=== PATIENT | female | born 1960 | race Caucasian/White ===

== ENCOUNTER 2016-08-05 12:06 | Day surgery (SDC) | payer OTHER ==
[2016-07-30 15:50] VITALS: BMI 15.5
--- NOTE | 2016-07-31 08:50 | HP ---
DATE OF ADMISSION: CHIEF COMPLAINT: Malnutrition, abdominal pain. HISTORY OF PRESENT ILLNESS: The patient is a 56-year-old female who was seen in the office today complaining of pain at the PEG tube site. The patient had a PEG tube present since 2009. It was never changed. Recently it has started to cause pain. She has a history of muscular dystrophy. She has very poor swallowing and lack of oral intake. She can only tolerate small volumes of food at that time. PAST MEDICAL HISTORY: Muscular dystrophy, multiple sclerosis, chronic headaches. PAST SURGICAL HISTORY: Trach, PEG, jaw, cataract. MEDICATIONS: See list. PHYSICAL EXAMINATION: HEENT is normocephalic. Sclerae anicteric. CHEST: No deformities. ABDOMEN: Soft, nondistended. PEG tube left upper quadrant with mild tenderness. EXTREMITIES: Without edema. IMPRESSION: A 56-year-old female with pain and malnutrition. PLAN: Will proceed with upper endoscopy with PEG tube replacement on 08/05. The risks of bleeding, infection, postoperative pain, scarring, numbness and bowel perforation were discussed. They understand and wish to proceed. Additionally respiratory failure as a result of her profound weakness was discussed with the usage of anesthesia. They understands and wishes to proceed.
[~2016-08-05 12:06] MED LIST: LACTATED RINGERS 1,000 ML IV SCH; LIDOCAINE 1% 20 ML VIAL (10MG/ML) FOR IV START INTRADERMA PRN
[2016-08-05 12:42] VITALS: TEMP 97.2
[2016-08-05] MEDS ORDERED: LIDOCAINE 1% INJ 10MG/ML (20 ML MDV) ONE (12:55)
[2016-08-05] MEDS ORDERED: PROPOFOL 10 MG/ML 20 ML VIAL IV ONE (12:55)
[2016-08-05] MEDS: fentaNYL (PF) 50 MCG/ML 2 ML AMP IV PRN ×2 (13:35→13:40)
[2016-08-05 13:47] VITALS: RESP 16
[2016-08-05 14:47] VITALS: BP 122/76; PULSE 51
--- NOTE | 2016-08-05 15:27 | P.PCN ---
Date of Procedure: 08/05/16 Procedure(s) Performed: Preoperative Dx: malnutrition Postoperative Dx: same Procedure: EGD with PEG tube replacement Anesthesia: Sedation Endoscopist: Dr. Stratton Specimens: none Endoscopic Procedure: The patient was on the endoscopy table in the left decubitus position. The Olympus gastroscope was inserted into the oropharynx and passed under direct visualization to the region of the mid body of the stomach. The PEG tube was noted at that location. The PEG tube was removed using traction. As expected the polyp broke away from the tubing. A new 20- Korean Ponsky type tube was used and easily advanced into the stomach. The bolster was tightened. The old hub of the catheter was removed using the snare technique without difficulty. The visualized stomach and proximal duodenum and esophagus appeared otherwise normal. The patient was then taken to the recovery room in stable condition per anesthesia guidelines. Recommendations: resume tube feeds. Advise PEG tube replacement in 1-2 years.
== END 2016-08-05 15:02 | disposition home or self-care (01) ==
LOC: ORWHC2ENDO 12:06
PROVIDERS: ATTEND Surgery
DX: Z43.1 Encounter for attention to gastrostomy (principal); E46 Unspecified protein-calorie malnutrition; G71.11 Myotonic muscular dystrophy; G35 Multiple sclerosis; K21.9 Gastro-esophageal reflux disease without esophagitis; R13.10 Dysphagia, unspecified; Z79.82 Long term (current) use of aspirin; Z79.891 Long term (current) use of opiate analgesic; Z79.899 Other long term (current) drug therapy
CPT/HCPCS: 43246; J2001; J3010; J2704; 99153

== ENCOUNTER 2017-05-14 15:30 | Inpatient (IN) | payer OTHER ==
[2017-05-14] MEDS ORDERED: SODIUM CHLORIDE 0.9% 500 ML IV ONE (16:01)
--- NOTE | 2017-05-14 16:05 | ED ---
General Adult HPI - General Chief complaint: Shortness of Breath Stated complaint: poss pneumonia Time Seen by Provider: 05/14/17 15:48 Source: patient, family, RN notes reviewed Mode of arrival: wheelchair Limitations: no limitations - History of Present Illness Initial comments: 56 yo female with history of muscular dystrophy presents with 4 days fever, up to 101, cough. Patient's unable to cough up significant sputum. She is also complaining of generalized weakness. Patient has a feeding tube secondary to difficulty swallowing. No abdominal pain. No nausea vomiting. Patient had an oxygen saturation of 74%, she is currently on oxygen. She was not previously on home O2. Patient was evaluated by her primary care physician. Started on azithromycin, her primary care physician did urge her to come to the emergency department yesterday, patient preferred to wait and is presenting today with worsening symptoms. Patient denies chest pain. - Related Data Home Medications Medication Instructions Recorded Confirmed Aspirin 81 mg PO DAILY 11/20/15 05/14/17 Calcium Carbonate/Vitamin D3 1 tab PO DAILY 11/20/15 05/14/17 [Os-Carlito 500+D3 Caplet] Esomeprazole Magnesium [NexIUM] 40 mg PO DAILY 11/20/15 05/14/17 Glycopyrrolate [Robinul] 1 mg PO BID 11/20/15 05/14/17 Hydrocodone/Acetaminophen [Causey 1 tab PO TID PRN 11/20/15 05/14/17 7.5-325] Melatonin 3 mg PO HS PRN 11/20/15 05/14/17 Spironolactone [Aldactone] 25 mg PO DAILY 11/20/15 05/14/17 Zolpidem [Ambien] 10 mg PO HS PRN 11/20/15 05/14/17 Artificial Tears-Hypromellose 1 drops BOTH EYES TID PRN 05/14/17 05/14/17 [Artificial Tear Drops] Azithromycin [Zithromax] See Taper PO DAILY 05/14/17 05/14/17 Carvedilol [Coreg] 12.5 mg PO DAILY 05/14/17 05/14/17 Erythromycin Ophth Oint [Romycin 1 applic BOTH EYES HS 05/14/17 05/14/17 Ophth Oint] Allergies Allergy/AdvReac Type Severity Reaction Status Date / Time No Known Allergies Allergy Verified 05/14/17 15:53 Review of Systems ROS Statement: Those systems with pertinent positive or pertinent negative responses have been documented in the HPI. ROS Other: All systems not noted in ROS Statement are negative. Past Medical History Past Medical History: GERD/Reflux Additional Past Medical History / Comment(s): myotonic muscular dystrophy, peg tube History of Any Multi-Drug Resistant Organisms: None Reported Additional Past Surgical History / Comment(s): peg tube, cataract surg. Past Anesthesia/Blood Transfusion Reactions: Postoperative Nausea & Vomiting ( PONV) Additional Past Anesthesia/Blood Transfusion Reaction / Comment(s): slow to wake up Past Psychological History: No Psychological Hx Reported Smoking Status: Never smoker Past Alcohol Use History: None Reported Past Drug Use History: None Reported General Exam Limitations: no limitations General appearance: alert, in distress Head exam: Present: atraumatic, normocephalic Eye exam: Present: normal appearance, PERRL ENT exam: Present: mucous membranes dry Neck exam: Absent: tenderness, meningismus Respiratory exam: Present: respiratory distress, rhonchi, accessory muscle use Cardiovascular Exam: Present: normal rhythm, tachycardia GI/Abdominal exam: Present: soft. Absent: distended, tenderness Extremities exam: Present: normal capillary refill. Absent: pedal edema, calf tenderness Neurological exam: Present: alert, oriented X3. Absent: motor sensory deficit Psychiatric exam: Present: normal affect, normal mood Skin exam: Present: warm, dry, intact, pallor. Absent: cyanosis, diaphoretic Course Vital Signs 05/14/17 05/14/17 05/14/17 15:31 16:13 17:02 Temperature 97.0 F L 98 F Pulse Rate 123 H 119 H Pulse Rate [ 118 H Poultry Service Technician ] Respiratory 20 20 Rate Blood Pressure 102/64 133/86 O2 Sat by Pulse 91 L 94 L Oximetry 05/14/17 05/14/17 05/14/17 17:03 17:07 17:16 Temperature Pulse Rate 118 H 119 H 122 H Pulse Rate [ Poultry Service Technician ] Respiratory 18 Rate Blood Pressure 112/68 O2 Sat by Pulse 93 L Oximetry 05/14/17 18:17 Temperature 97.6 F Pulse Rate 122 H Pulse Rate [ Poultry Service Technician ] Respiratory 18 Rate Blood Pressure 106/66 O2 Sat by Pulse 93 L Oximetry EKG Findings - EKG Comments: EKG Findings:: EKG shows wide complex rhythm, left bundle branch block, ventricular rate 120 QRS duration 122, QTC 469, no old EKG for comparison. Repeat EKG at 1738, shows wide QRS rhythm, ventricular rate 120, QRS duration 120, QTC 477, no atrial activity identified Medical Decision Making - Medical Decision Making 56-year-old female presents with reported history of dyspnea, severe cough, and fever. Patient has history of muscular dystrophy and severe debility. She was started on antibiotic, azithromycin, several days ago. She has failed to improve. On examination, patient has dry mucous membranes, tachycardia, bilateral rhonchi, worse on the right upper lobe. No Rales. No peripheral edema. EKG shows wide QRS rhythm, rate of 120, there is a left bundle branch block. Patient has no chest pain. No previous EKG for comparison. Patient does admit to missing a dose of her Coreg. EKG findings are discussed with cardiology, Dr. Burroughs, given the concern for pneumonia, this be treated as sinus tachycardia. Laboratory studies reveal a elevated white blood cell count 13.9, stable hemoglobin 11.9, mild hyponatremia with sodium 1:30, AST and LTR elevated, troponin is negative, BMP is elevated at 5850. Chest x-ray shows small bilateral pleural effusions, mild cardiomegaly, patient does have history of heart failure, EF of 30% according to the patient, this is secondary to her muscular dystrophy. Given the elevated AST and ALTs from ultrasound is obtained , this is negative for signs of acute cholecystitis, common bile duct is normal. Patient has no right upper quadrant pain. Urinalysis is negative for infection. History and exam most consistent with pneumonia although chest x- ray does not show focal infiltrate. Patient is started on IV antibiotics including azithromycin for atypical pneumonia. Patient will receive gentle IV rehydration. Diagnosis: Pneumonia with hypoxia - Lab Data Result diagrams: 05/14/17 16:00 05/14/17 16:00 Lab Results 05/14/17 05/14/17 05/14/17 Range/Units 16:00 16:00 16:00 WBC 13.9 H (3.8-10.6) k/uL RBC 3.84 (3.80-5.40) m/uL Hgb 11.9 (11.4-16.0) gm/dL Hct 36.5 (34.0-46.0) % MCV 95.0 (80.0-100.0) fL MCH 31.0 (25.0-35.0) pg MCHC 32.6 (31.0-37.0) g/dL RDW 13.5 (11.5-15.5) % Plt Count 387 (150-450) k/uL Neutrophils % 85 % Lymphocytes % 7 % Monocytes % 5 % Eosinophils % 2 % Basophils % 0 % Neutrophils # 11.9 H (1.3-7.7) k/uL Lymphocytes # 0.9 L (1.0-4.8) k/uL Monocytes # 0.6 (0-1.0) k/uL Eosinophils # 0.2 (0-0.7) k/uL Basophils # 0.0 (0-0.2) k/uL PT (9.0-12.0) sec INR (<1.2) APTT (22.0-30.0) sec Sodium 130 L (137-145) mmol/L Potassium 4.8 (3.5-5.1) mmol/L Chloride 94 L (98-107) mmol/L Carbon Dioxide 27 (22-30) mmol/L Anion Gap 9 mmol/L BUN 23 H (7-17) mg/dL Creatinine 0.48 L (0.52-1.04) mg/dL Est GFR (MDRD) Af Amer >60 (>60 ml/min/1.73 sqM) Est GFR (MDRD) Non-Af >60 (>60 ml/min/1.73 sqM) Glucose 115 H (74-99) mg/dL Plasma Lactic Acid Rashad 1.1 (0.7-2.0) mmol/L Calcium 9.5 (8.4-10.2) mg/dL Magnesium (1.6-2.3) mg/dL Total Bilirubin 0.3 (0.2-1.3) mg/dL AST 116 H (14-36) U/L ALT 176 H (9-52) U/L Alkaline Phosphatase 282 H (38-126) U/L Troponin I (0.000-0.034) ng/mL NT-Pro-B Natriuret Pep pg/mL Total Protein 6.6 (6.3-8.2) g/dL Albumin 3.4 L (3.5-5.0) g/dL Urine Color Urine Appearance (Clear) Urine pH (5.0-8.0) Ur Specific Fowler (1.001-1.035) Urine Protein (Negative) Urine Glucose (UA) (Negative) Urine Ketones (Negative) Urine Blood (Negative) Urine Nitrite (Negative) Urine Bilirubin (Negative) Urine Urobilinogen (<2.0) mg/dL Ur Leukocyte Esterase (Negative) 05/14/17 05/14/17 05/14/17 Range/Units 16:00 16:00 16:00 WBC (3.8-10.6) k/uL RBC (3.80-5.40) m/uL Hgb (11.4-16.0) gm/dL Hct (34.0-46.0) % MCV (80.0-100.0) fL MCH (25.0-35.0) pg MCHC (31.0-37.0) g/dL RDW (11.5-15.5) % Plt Count (150-450) k/uL Neutrophils % % Lymphocytes % % Monocytes % % Eosinophils % % Basophils % % Neutrophils # (1.3-7.7) k/uL Lymphocytes # (1.0-4.8) k/uL Monocytes # (0-1.0) k/uL Eosinophils # (0-0.7) k/uL Basophils # (0-0.2) k/uL PT 9.7 (9.0-12.0) sec INR 0.9 (<1.2) APTT 23.8 (22.0-30.0) sec Sodium (137-145) mmol/L Potassium (3.5-5.1) mmol/L Chloride (98-107) mmol/L Carbon Dioxide (22-30) mmol/L Anion Gap mmol/L BUN (7-17) mg/dL Creatinine (0.52-1.04) mg/dL Est GFR (MDRD) Af Amer (>60 ml/min/1.73 sqM) Est GFR (MDRD) Non-Af (>60 ml/min/1.73 sqM) Glucose (74-99) mg/dL Plasma Lactic Acid Rashad (0.7-2.0) mmol/L Calcium (8.4-10.2) mg/dL Magnesium (1.6-2.3) mg/dL Total Bilirubin (0.2-1.3) mg/dL AST (14-36) U/L ALT (9-52) U/L Alkaline Phosphatase (38-126) U/L Troponin I <0.012 (0.000-0.034) ng/mL NT-Pro-B Natriuret Pep 5950 pg/mL Total Protein (6.3-8.2) g/dL Albumin (3.5-5.0) g/dL Urine Color Urine Appearance (Clear) Urine pH (5.0-8.0) Ur Specific Fowler (1.001-1.035) Urine Protein (Negative) Urine Glucose (UA) (Negative) Urine Ketones (Negative) Urine Blood (Negative) Urine Nitrite (Negative) Urine Bilirubin (Negative) Urine Urobilinogen (<2.0) mg/dL Ur Leukocyte Esterase (Negative) 05/14/17 05/14/17 Range/Units 16:00 18:15 WBC (3.8-10.6) k/uL RBC (3.80-5.40) m/uL Hgb (11.4-16.0) gm/dL Hct (34.0-46.0) % MCV (80.0-100.0) fL MCH (25.0-35.0) pg MCHC (31.0-37.0) g/dL RDW (11.5-15.5) % Plt Count (150-450) k/uL Neutrophils % % Lymphocytes % % Monocytes % % Eosinophils % % Basophils % % Neutrophils # (1.3-7.7) k/uL Lymphocytes # (1.0-4.8) k/uL Monocytes # (0-1.0) k/uL Eosinophils # (0-0.7) k/uL Basophils # (0-0.2) k/uL PT (9.0-12.0) sec INR (<1.2) APTT (22.0-30.0) sec Sodium (137-145) mmol/L Potassium (3.5-5.1) mmol/L Chloride (98-107) mmol/L Carbon Dioxide (22-30) mmol/L Anion Gap mmol/L BUN (7-17) mg/dL Creatinine (0.52-1.04) mg/dL Est GFR (MDRD) Af Amer (>60 ml/min/1.73 sqM) Est GFR (MDRD) Non-Af (>60 ml/min/1.73 sqM) Glucose (74-99) mg/dL Plasma Lactic Acid Rashad (0.7-2.0) mmol/L Calcium (8.4-10.2) mg/dL Magnesium 2.1 (1.6-2.3) mg/dL Total Bilirubin (0.2-1.3) mg/dL AST (14-36) U/L ALT (9-52) U/L Alkaline Phosphatase (38-126) U/L Troponin I (0.000-0.034) ng/mL NT-Pro-B Natriuret Pep pg/mL Total Protein (6.3-8.2) g/dL Albumin (3.5-5.0) g/dL Urine Color Light Yellow Urine Appearance Clear (Clear) Urine pH 6.5 (5.0-8.0) Ur Specific Fowler 1.004 (1.001-1.035) Urine Protein Negative (Negative) Urine Glucose (UA) Negative (Negative) Urine Ketones Negative (Negative) Urine Blood Negative (Negative) Urine Nitrite Negative (Negative) Urine Bilirubin Negative (Negative) Urine Urobilinogen <2.0 (<2.0) mg/dL Ur Leukocyte Esterase Negative (Negative) Critical Care Time Critical Care Time: Yes Total Critical Care Time: 35 Disposition Clinical Impression: Community acquired pneumonia Disposition: ADMITTED IP TO THIS [facility] Condition: Serious Referrals: Leoadn Crespo MD [Primary Care Provider] - 1-2 days Decision to Admit Reason: Admit from EC Decision Date: 05/14/17 Decision Time: 18:35
[2017-05-14] MEDS: SODIUM CHLORIDE 0.9% 1,000 ML IV SCH (16:16)
[2017-05-14 16:21] LABS: Basophils % (A) 0 %; CH 30.6; CHCM 32.4; Eosinophils # (A) 0.2 k/uL (0-0.7); Eosinophils % (A) 2 %; HCT 36.5 % (34.0-46.0); HDW 2.27; HGB 11.9 gm/dL (11.4-16.0); Luc # (Auto) 0.25; Luc % (Auto) 2; Lymphocytes # (A) 0.9 k/uL (1.0-4.8); Lymphocytes % (A) 7 %; MCHC 32.6 g/dL (31.0-37.0); Mean Platelet Volume 7.5; Monocytes # (A) 0.6 k/uL (0-1.0); Monocytes % (A) 5 %; Neutrophils # (A) 11.9 k/uL (1.3-7.7); Neutrophils % (A) 85 %; RBC 3.84 m/uL (3.80-5.40); RDW 13.5 % (11.5-15.5); WBC 13.9 k/uL (3.8-10.6); WBC (Perox) 14.39
[2017-05-14 16:31] LABS: ALT 176 U/L (9-52); AST 116 U/L (14-36); Alkaline Phosphatase 282 U/L (38-126); Anion Gap 9 mmol/L; Blood Urea Nitrogen 23 mg/dL (7-17); Calcium 9.5 mg/dL (8.4-10.2); Carbon Dioxide 27 mmol/L (22-30); Chloride 94 mmol/L (98-107); Glucose 115 mg/dL (74-99); Non-African American GFR(MDRD) >60 (>60 ml/min/1.73 sqM); Potassium 4.8 mmol/L (3.5-5.1); Sodium 130 mmol/L (137-145); Total Bilirubin 0.3 mg/dL (0.2-1.3); Total Protein 6.6 g/dL (6.3-8.2)
[2017-05-14 16:32] LABS: INR 0.9 (<1.2); Partial Thromboplastin Time 23.8 sec (22.0-30.0); Prothrombin Time 9.7 sec (9.0-12.0)
[2017-05-14] MEDS ORDERED: IPRATROPIUM-ALBUTEROL 3 ML NEB INHALATION STA (16:38)
--- NOTE | 2017-05-14 16:45 | XR ---
EXAMINATION TYPE: XR chest 2V DATE OF EXAM: 05/14/2017 COMPARISON: Chest x-ray May 21, 2014 HISTORY: Cough for 3 days. TECHNIQUE: Frontal and lateral views of the chest are obtained. FINDINGS: There is new mild cardiomegaly with small bilateral pleural effusions. There is moderate apical pleural/parenchymal scarring bilaterally redemonstrated. The osseous structures are intact. IMPRESSION: Consider CHF exacerbation as there is new mild cardiomegaly with small bilateral pleural effusions present.
[2017-05-14] MEDS ORDERED: AZITHROMYCIN 500 MG in SODIUM CHLORIDE 0.9% 250 ML IVPB STA (16:50)
[2017-05-14] MEDS ORDERED: VANCOMYCIN IV PER PHARMACY 1 EACH MISC MISCELLANE PRN (16:50)
[2017-05-14] MEDS ORDERED: CARVEDILOL 12.5 MG TAB PO STA (17:36)
--- NOTE | 2017-05-14 18:14 | US ---
EXAMINATION TYPE: US gallbladder DATE OF EXAM: 05/14/2017 COMPARISON: NONE CLINICAL HISTORY: Pain. EXAM MEASUREMENTS: Liver Length: 13.6 cm Gallbladder Wall: 0.4 cm CBD: 0.2 cm Right Kidney: 9.3 x 3.4 x 3.7 cm Frail patient unable to move, severe uncontrollable coughing during entire exam. VERY limited study. Pancreas: portions visualized wnl Liver: unable to fully evaluate due to patient severe coughing, inability to hold her breath Gallbladder: chololithiasis Evidence for sonographic Carmona's sign: no CBD: wnl Right Kidney: wnl Suboptimal study per technologist as detailed above. IMPRESSION: Shadowing mobile Gallstones without secondary ultrasound evidence for acute cholecystit is.
[2017-05-14 18:20] LABS: Appearance,Urine Clear (Clear); Bilirubin,Urine Negative (Negative); Glucose,Urine (UA) Negative (Negative); Ketones,Urine Negative (Negative); Leukocyte Esterase,Urine Negative (Negative); Nitrite,Urine Negative (Negative); PH, Urine 6.5 (5.0-8.0); Protein,Urine Negative (Negative); Specific Gravity,Urine 1.004 (1.001-1.035); UA Billing (MACRO vs. MICRO) CHEM; Urobilinogen,Urine <2.0 mg/dL (<2.0)
[2017-05-14] MEDS ORDERED: NALOXONE 0.4 MG/ML 1 ML VIAL IV PRN (18:25)
[2017-05-14] MEDS ORDERED: ACETAMINOPHEN TAB 325 MG TAB PO PRN (18:25)
[2017-05-14] MEDS ORDERED: ARTIFICIAL TEARS-HYPROMELLOSE DROPS 15 ML BTL BOTH EYES PRN (18:28)
[2017-05-14] MEDS: HYDROcodone/APAP 7.5-325MG 1 EACH TAB PO PRN (19:49)
[2017-05-14] MEDS ORDERED: VANCOMYCIN 1,000 MG in SODIUM CHLORIDE 0.9% 250 ML IVPB ONE (20:00)
[2017-05-14] MEDS: ZOLPIDEM 10 MG TAB PO PRN (22:52)
[2017-05-14] MEDS: MELATONIN 3 MG TABLET PO PRN (22:53)
[2017-05-14] MEDS: CEFEPIME 2 GM in SODIUM CHLORIDE 0.9% 50 ML IVPB SCH (23:04)
[2017-05-15 00:43] LABS: Glucose,Whole Blood 131 mg/dL (75-99)
[2017-05-15] MEDS: SODIUM CHLORIDE 0.9% 1,000 ML IV SCH ×3 (04:29→23:25)
[2017-05-15] MEDS: VANCOMYCIN 750 MG in SODIUM CHLORIDE 0.9% 250 ML IVPB SCH ×2 (04:35→12:38)
[2017-05-15 06:19] LABS: Glucose,Whole Blood 124 mg/dL (75-99)
[2017-05-15] MEDS: CARVEDILOL 12.5 MG TAB PO SCH (06:26)
[2017-05-15 06:46] LABS: Basophils % (A) 0 %; CH 30.4; CHCM 31.4; Eosinophils # (A) 0.2 k/uL (0-0.7); Eosinophils % (A) 2 %; HCT 30.2 % (34.0-46.0); HDW 2.25; Luc % (Auto) 2; Lymphocytes # (A) 1.1 k/uL (1.0-4.8); Lymphocytes % (A) 12 %; MCH 30.5 pg (25.0-35.0); MCHC 31.4 g/dL (31.0-37.0); MCV 97.1 fL (80.0-100.0); Mean Platelet Volume 7.5; Monocytes # (A) 0.5 k/uL (0-1.0); Monocytes % (A) 6 %; Neutrophils # (A) 7.1 k/uL (1.3-7.7); Neutrophils % (A) 78 %; RBC 3.11 m/uL (3.80-5.40); RDW 13.5 % (11.5-15.5); WBC 9.1 k/uL (3.8-10.6); WBC (Perox) 9.99
[2017-05-15 06:51] LABS: HGB 9.5 gm/dL (11.4-16.0)
[2017-05-15 07:12] LABS: ALT 110 U/L (9-52); AST 51 U/L (14-36); Alkaline Phosphatase 184 U/L (38-126); Anion Gap 9 mmol/L; Blood Urea Nitrogen 17 mg/dL (7-17); Calcium 8.6 mg/dL (8.4-10.2); Carbon Dioxide 25 mmol/L (22-30); Chloride 103 mmol/L (98-107); Glucose 116 mg/dL (74-99); Non-African American GFR(MDRD) >60 (>60 ml/min/1.73 sqM); Potassium 4.5 mmol/L (3.5-5.1); Sodium 137 mmol/L (137-145); Total Bilirubin <0.1 mg/dL (0.2-1.3); Total Protein 5.2 g/dL (6.3-8.2)
[2017-05-15] MEDS: SPIRONOLACTONE 25 MG TAB PO SCH (09:05)
[2017-05-15] MEDS: HYDROcodone/APAP 7.5-325MG 1 EACH TAB PO PRN ×3 (09:06→19:49)
[2017-05-15] MEDS: ASPIRIN 81 MG PO SCH (09:06)
[2017-05-15] MEDS: CEFEPIME 2 GM in SODIUM CHLORIDE 0.9% 50 ML IVPB SCH (09:06)
[2017-05-15 11:55] LABS: Glucose,Whole Blood 121 mg/dL (75-99)
[2017-05-15] MEDS: FUROSEMIDE 10 MG/ML 4 ML VIAL IV SCH ×2 (12:25→19:50)
[2017-05-15] MEDS: LOSARTAN 25 MG TAB PO SCH (12:25)
--- NOTE | 2017-05-15 14:52 | P.HPIM ---
History of Present Illness 56 yo female with history of muscular dystrophy presents with 4 days fever, up to 101, cough. Patient's unable to cough up significant sputum. She is also complaining of generalized weakness. Patient has a feeding tube secondary to difficulty swallowing. No abdominal pain. No nausea vomiting. Patient had an oxygen saturation of 74%, she is currently on oxygen. She was not previously on home O2. Patient was evaluated by her primary care physician. Started on azithromycin, her primary care physician did urge her to come to the emergency department yesterday, patient preferred to wait and is presenting today with worsening symptoms. Patient denies chest pain. Patient was comparing of shortness of breath denied any orthopnea PND, upon further evaluation patient is found to have pulmonary edema on the chest x-ray, elevated JVD and elevated the BNP patient's previous ejection fraction is around 30-35% patient was started on Lasix. Patient denied any fever since last night chest x-ray is not name impressive for pneumonia, causing her fever are good and continue antibiotics. Patient does have gallstones but does not appear to have cholecystitis clinically or radiographically and does have mildly elevated liver enzymes, probably due to hepatic congestion Review of Systems REVIEW OF SYSTEMS: CONSTITUTIONAL: As mentioned in HPI HEENT: No recent visual problems or hearing problems. Denied any sore throat. CARDIOVASCULAR: No chest pain, orthopnea, PND, no palpitations, no syncope. PULMONARY: No shortness of breath, no hemoptysis. GASTROINTESTINAL: No diarrhea, no nausea, no vomiting, no abdominal pain. Normoactive bowel sounds. NEUROLOGICAL: No headaches, no weakness, no numbness. HEMATOLOGICAL: Denies any bleeding or petechiae. GENITOURINARY: Denies any burning micturition, frequency, or urgency. MUSCULOSKELETAL/RHEUMATOLOGICAL: Denies any joint pain, swelling, or any muscle pain. ENDOCRINE: Denies any polyuria or polydipsia. The rest of the 14-point review of systems is negative. Past Medical History Past Medical History: Heart Failure, GERD/Reflux Additional Past Medical History / Comment(s): myotonic muscular dystrophy, peg tube History of Any Multi-Drug Resistant Organisms: None Reported Additional Past Surgical History / Comment(s): peg tube, cataract surg./ EYE LIFT R/T THEM NOT CLOSING PROPERLY. Past Anesthesia/Blood Transfusion Reactions: Postoperative Nausea & Vomiting ( PONV) Additional Past Anesthesia/Blood Transfusion Reaction / Comment(s): slow to wake up Past Psychological History: No Psychological Hx Reported Smoking Status: Never smoker Past Alcohol Use History: None Reported Past Drug Use History: None Reported - Past Family History Father Family Medical History: Congestive Heart Failure (CHF) Medications and Allergies Home Medications Medication Instructions Recorded Confirmed Type Aspirin 81 mg PO DAILY 11/20/15 05/14/17 History Calcium Carbonate/Vitamin D3 1 tab PO DAILY 11/20/15 05/14/17 History [Os-Carlito 500+D3 Caplet] Esomeprazole Magnesium [NexIUM] 40 mg PO DAILY 11/20/15 05/14/17 History Glycopyrrolate [Robinul] 1 mg PO BID 11/20/15 05/14/17 History Hydrocodone/Acetaminophen [Marvin 1 tab PO TID PRN 11/20/15 05/14/17 History 7.5-325] Melatonin 3 mg PO HS PRN 11/20/15 05/14/17 History Spironolactone [Aldactone] 25 mg PO DAILY 11/20/15 05/14/17 History Zolpidem [Ambien] 10 mg PO HS PRN 11/20/15 05/14/17 History Artificial Tears-Hypromellose 1 drops BOTH EYES TID PRN 05/14/17 05/14/17 History [Artificial Tear Drops] Azithromycin [Zithromax] See Taper PO DAILY 05/14/17 05/14/17 History Carvedilol [Coreg] 12.5 mg PO DAILY 05/14/17 05/14/17 History Erythromycin Ophth Oint [Romycin 1 applic BOTH EYES HS 05/14/17 05/14/17 History Ophth Oint] Allergies Allergy/AdvReac Type Severity Reaction Status Date / Time No Known Allergies Allergy Verified 05/14/17 15:53 Physical Exam Vitals: Vital Signs Temp Pulse Pulse Resp BP BP Pulse Ox 05/15/17 04:00 97.4 F L 107 H 19 101/57 91 L 05/15/17 00:00 97.2 F L 109 H 18 112/61 92 L 05/14/17 20:00 97.0 F L 106 H 19 100/59 91 L 05/14/17 18:49 96.7 F L 112 H 19 110/59 90 L 05/14/17 18:17 97.6 F 122 H 18 106/66 93 L 05/14/17 17:16 122 H 18 112/68 93 L 05/14/17 17:07 119 H 05/14/17 17:03 118 H 05/14/17 17:02 118 H 05/14/17 16:13 98 F 119 H 20 133/86 94 L 05/14/17 15:31 97.0 F L 123 H 20 102/64 91 L Intake and Output 05/14/17 05/15/17 05/15/17 22:59 06:59 14:59 Intake Total 120 1100 Output Total 250 2200 Balance -130 1100 -2200 Intake: IV 1100 Azithromycin 500 mg In 250 Sodium Chloride 0.9% 250 ml @ 125 mls/hr IVPB DAILY@1700 [facility] Rx#: [id number] Cefepime 2 gm In Sodium 100 Chloride 0.9% 50 ml @ 100 mls/hr IVPB Q8HR [facility] Rx# :[id number] Sodium Chloride 0.9% 1, 500 000 ml @ 100 mls/hr IV . Q10H [facility] Rx#:[id number] Vancomycin 1,000 mg In 250 Sodium Chloride 0.9% 250 ml @ 125 mls/hr IVPB ONCE ONE Rx#:[id number] Tube Feeding 120 Output: Urine 250 2200 Other: Voiding Method Bedside Commode Bedside Commode # Voids 1 2 1 Weight 42.5 kg 42.5 kg PHYSICAL EXAMINATION: GENERAL: The patient is alert and oriented x3, not in any acute distress. Thin built female HEENT: Pupils are round and equally reacting to light. EOMI. No scleral icterus. No conjunctival pallor. Normocephalic, atraumatic. No pharyngeal erythema. No thyromegaly. CARDIOVASCULAR: S1 and S2 present. No murmurs, rubs, or gallops. She does have elevated JVD PULMONARY: Decreased air entry bilateral basilar crackles. ABDOMEN: Soft, nontender, nondistended, normoactive bowel sounds. No palpable organomegaly. MUSCULOSKELETAL: No joint swelling or deformity. EXTREMITIES: No cyanosis, clubbing, or pedal edema. NEUROLOGICAL: Gross neurological examination did not reveal any new focal deficits. Does have chronic weakness from muscular dystrophy SKIN: No rashes. Results CBC & Chem 7: 05/15/17 06:14 05/15/17 06:14 Labs: Abnormal Lab Results - Last 24 Hours (Table) 05/14/17 05/14/17 05/15/17 Range/Units 16:00 16:00 00:41 WBC 13.9 H (3.8-10.6) k/uL RBC (3.80-5.40) m/uL Hgb (11.4-16.0) gm/dL Hct (34.0-46.0) % Neutrophils # 11.9 H (1.3-7.7) k/uL Lymphocytes # 0.9 L (1.0-4.8) k/uL Sodium 130 L (137-145) mmol/L Chloride 94 L (98-107) mmol/L BUN 23 H (7-17) mg/dL Creatinine 0.48 L (0.52-1.04) mg/dL Glucose 115 H (74-99) mg/dL POC Glucose (mg/dL) 131 H (75-99) mg/dL Total Bilirubin (0.2-1.3) mg/dL AST 116 H (14-36) U/L ALT 176 H (9-52) U/L Alkaline Phosphatase 282 H (38-126) U/L Total Protein (6.3-8.2) g/dL Albumin 3.4 L (3.5-5.0) g/dL 05/15/17 05/15/17 05/15/17 Range/Units 06:14 06:14 06:16 WBC (3.8-10.6) k/uL RBC 3.11 L (3.80-5.40) m/uL Hgb 9.5 L D (11.4-16.0) gm/dL Hct 30.2 L (34.0-46.0) % Neutrophils # (1.3-7.7) k/uL Lymphocytes # (1.0-4.8) k/uL Sodium (137-145) mmol/L Chloride (98-107) mmol/L BUN (7-17) mg/dL Creatinine 0.45 L (0.52-1.04) mg/dL Glucose 116 H (74-99) mg/dL POC Glucose (mg/dL) 124 H (75-99) mg/dL Total Bilirubin <0.1 L (0.2-1.3) mg/dL AST 51 H (14-36) U/L ALT 110 H (9-52) U/L Alkaline Phosphatase 184 H (38-126) U/L Total Protein 5.2 L (6.3-8.2) g/dL Albumin 2.5 L (3.5-5.0) g/dL 05/15/17 Range/Units 11:53 WBC (3.8-10.6) k/uL RBC (3.80-5.40) m/uL Hgb (11.4-16.0) gm/dL Hct (34.0-46.0) % Neutrophils # (1.3-7.7) k/uL Lymphocytes # (1.0-4.8) k/uL Sodium (137-145) mmol/L Chloride (98-107) mmol/L BUN (7-17) mg/dL Creatinine (0.52-1.04) mg/dL Glucose (74-99) mg/dL POC Glucose (mg/dL) 121 H (75-99) mg/dL Total Bilirubin (0.2-1.3) mg/dL AST (14-36) U/L ALT (9-52) U/L Alkaline Phosphatase (38-126) U/L Total Protein (6.3-8.2) g/dL Albumin (3.5-5.0) g/dL Microbiology - Last 24 Hours (Table) 05/14/17 18:15 Urine Culture - Preliminary Urine,Voided Thrombosis Risk Factor Assmnt - Choose All That Apply Each Factor Represents 1 point: Age 41-60 years, Medical pt on bed rest, Serious lung disease incl. pneumonia (< 1month) Thrombosis Risk Factor Assessment Total Risk Factor Score: 3 Thrombosis Risk Factor Assessment Level: Moderate Risk Assessment and Plan Plan: #1 shortness of breath, hypoxemia: Secondary to possible COPD exacerbation patient was started on IV Lasix and all lactone and Cozaar which will be continued. #2 fever, chest x-ray is not impressive or pneumonia but today quite pneumonia cannot be ruled out because of which patient will be continued on ceftriaxone and azithromycin and cefepime and vancomycin will be discontinued. #3 muscular dystrophy #4 congestive heart failure chronic systolic dysfunction with acute exacerbation #5 gastroesophageal reflux disease #6 hypertension
[2017-05-15 17:08] LABS: Glucose,Whole Blood 116 mg/dL (75-99)
[2017-05-15] MEDS: AZITHROMYCIN 500 MG in SODIUM CHLORIDE 0.9% 250 ML IVPB SCH (17:45)
--- NOTE | 2017-05-15 17:57 | CONS ---
CONSULTATION This is a 56-year-old lady who carries a diagnosis of muscular dystrophy and concomitant LV dysfunction with probable non ischemic cardiomyopathy. She came into the hospital emergency room, brought in by her family. Four days of fever with chills and also coughing and generalized weakness, lack of energy and she has a feed tube secondary to difficulty in swallowing. I was asked to see her mainly because of congestive heart failure type picture with elevated BNP. She denies any chest discomfort, but indicates to me that shortness of breath is better and she is actually feeling somewhat better at this time. Denies any chest pain or palpitations. PAST MEDICAL HISTORY: 1. Muscular dystrophy with a nonischemic cardiomyopathy. 2. Gastroesophageal reflux disease. 3. History of a PEG tube, status post cataract surgery. MEDICATIONS: At home include: 1. Aldactone 25 mg daily. 2. Artificial Tears. 3. Carvedilol 12.5 mg 1 b.i.d. 4. [place] for pain. 5. Aspirin 81 mg daily. 6. Nexium. ALLERGIES: None. REVIEW OF SYSTEMS: Review of systems unremarkable other than above-mentioned facts. PHYSICAL EXAMINATION: Blood pressure is 110/70, pulse rate is about 98 per minute. HEENT: Unremarkable. Fundus was not examined by me. Neck is supple. There is JVD of 1 cm. No carotid bruit. Heart exam reveals S1, S2 with a short systolic murmur. Lungs reveal diminished air entry. Abdomen is soft, nontender. Lower extremities reveal diminished pulses. No edema. Central nervous system is normal. EKG that was in the chart revealed a sinus tachycardia with an IVCD LBBB type, but rhythm strips suggest a sinus mechanism at this time. LABORATORY DATA: Reveals elevated BNP of about 5950. Troponin levels are normal. The patient's lactic acid was normal. Renal function appears to be fairly stable. IMPRESSION: 1. Exacerbation of mild congestive heart failure. 2. Probable upper respiratory infection. 3. History of muscular dystrophy with probable nonischemic cardiomyopathy with mild congestive heart failure of systolic type. RECOMMENDATIONS: I am recommending that we will place her on IV Lasix and add a small dose of losartan, check an EKG in the morning along with an echocardiogram and continue antibiotics. Based on the testing results and clinical course, we will make further recommendations. Thank you very much for the consult. MMODL / IJN: [id number] /
[2017-05-15] MEDS: ZOLPIDEM 10 MG TAB PO PRN (23:24)
[2017-05-15] MEDS: MELATONIN 3 MG TABLET PO PRN (23:24)
[2017-05-16 00:41] LABS: Glucose,Whole Blood 89 mg/dL (75-99)
[2017-05-16 06:00] LABS: Glucose,Whole Blood 129 mg/dL (75-99)
[2017-05-16] MEDS: CARVEDILOL 12.5 MG TAB PO SCH ×2 (06:47→08:48)
[2017-05-16 07:08] LABS: ALT 110 U/L (9-52); AST 45 U/L (14-36); Alkaline Phosphatase 202 U/L (38-126); Anion Gap 11 mmol/L; Blood Urea Nitrogen 22 mg/dL (7-17); Calcium 9.6 mg/dL (8.4-10.2); Carbon Dioxide 32 mmol/L (22-30); Chloride 97 mmol/L (98-107); Glucose 112 mg/dL (74-99); Non-African American GFR(MDRD) >60 (>60 ml/min/1.73 sqM); Sodium 140 mmol/L (137-145); Total Bilirubin <0.1 mg/dL (0.2-1.3); Total Protein 6.3 g/dL (6.3-8.2)
[2017-05-16] MEDS: INSULIN LISPRO (humaLOG) 300 UNIT/3 ML VIAL SQ SCH ×3 (07:40→21:21)
--- NOTE | 2017-05-16 08:09 | P.PN ---
Subjective Progress Note Date: 05/16/17 Principal diagnosis: Cough and shortness of breath. This is a 56-year-old white cardiology does show probable mild nonischemic cardiac myopathy systolic type. The patient is improved but still having significant cough. Low-grade fever spikes are also noted. No diarrhea. Objective - Vital Signs Vital signs: Vital Signs Temp 97.9 F 05/16/17 04:00 Pulse 74 05/16/17 04:00 Resp 18 05/16/17 04:00 BP 84/42 05/16/17 04:00 Pulse Ox 96 05/16/17 00:00 Intake & Output 05/15/17 05/16/17 05/16/17 18:59 06:59 18:59 Intake Total 250 Output Total 4300 1000 Balance -4300 -750 Intake: IV 250 Azithromycin 500 mg In 250 Sodium Chloride 0.9% 250 ml @ 125 mls/hr IVPB DAILY@1700 [facility] Rx#: [id number] Output: Urine 4300 1000 Other: Voiding Method Bedside Commode Bedside Commode # Voids 1 - Constitutional General appearance: Present: thin - EENT Eyes: Absent: abnormal pupil - Respiratory Respiratory: bilateral: dullness - Cardiovascular Rhythm: regular Heart sounds: normal: S1, S2 - Gastrointestinal General gastrointestinal: Present: soft. Absent: tenderness - Neurologic Neurologic: Present: CNII-XII intact - Musculoskeletal Musculoskeletal: Present: generalized weakness - Labs CBC & Chem 7: 05/15/17 06:14 05/16/17 05:54 Labs: Abnormal Lab Results - Last 24 Hours (Table) 05/15/17 05/15/17 05/16/17 Range/Units 11:53 17:05 05:54 Chloride 97 L (98-107) mmol/L Carbon Dioxide 32 H (22-30) mmol/L BUN 22 H (7-17) mg/dL Glucose 112 H (74-99) mg/dL POC Glucose (mg/dL) 121 H 116 H (75-99) mg/dL Total Bilirubin <0.1 L (0.2-1.3) mg/dL AST 45 H (14-36) U/L ALT 110 H (9-52) U/L Alkaline Phosphatase 202 H (38-126) U/L Albumin 3.2 L (3.5-5.0) g/dL 10/30/17 Range/Units 05:59 Chloride (98-107) mmol/L Carbon Dioxide (22-30) mmol/L BUN (7-17) mg/dL Glucose (74-99) mg/dL POC Glucose (mg/dL) 129 H (75-99) mg/dL Total Bilirubin (0.2-1.3) mg/dL AST (14-36) U/L ALT (9-52) U/L Alkaline Phosphatase (38-126) U/L Albumin (3.5-5.0) g/dL Microbiology - Last 24 Hours (Table) 05/14/17 18:15 Urine Culture - Final Urine,Voided 05/14/17 16:00 Blood Culture - Preliminary Blood No Growth after 24 hours Assessment and Plan (1) Nonischemic cardiomyopathy Current Visit: Yes Status: Acute Code(s): I42.8 - OTHER CARDIOMYOPATHIES SNOMED Code(s): 16769908 (2) Systolic congestive heart failure Current Visit: Yes Status: Acute Code(s): I50.20 - UNSPECIFIED SYSTOLIC ( CONGESTIVE) HEART FAILURE SNOMED Code(s): 064128464 (3) Community acquired pneumonia Current Visit: Yes Status: Acute Code(s): J18.9 - PNEUMONIA, UNSPECIFIED ORGANISM SNOMED Code(s): 515423974 Plan: Continue current regimen of treatment with IV Lasix with Cozaar and antibiotic treatment. Check CBC and CMP in a.m. Appreciate cardiology input. Echocardiogram is pending. Time with Patient: Less than 30
[2017-05-16] MEDS: LOSARTAN 25 MG TAB PO SCH (08:48)
[2017-05-16] MEDS: ASPIRIN 81 MG PO SCH (08:48)
[2017-05-16] MEDS: SPIRONOLACTONE 25 MG TAB PO SCH (08:48)
[2017-05-16] MEDS: HYDROcodone/APAP 7.5-325MG 1 EACH TAB PO PRN ×3 (08:48→19:52)
[2017-05-16] MEDS: FUROSEMIDE 10 MG/ML 4 ML VIAL IV SCH (08:50)
[2017-05-16] MEDS: SODIUM CHLORIDE 0.9% 1,000 ML IV SCH ×3 (09:30→22:31)
--- NOTE | 2017-05-16 10:47 | ECHOF ---
Referral Reason:pain/shortness of breath/post procedure MEASUREMENTS -------- HEIGHT: 157.5 cm WEIGHT: 42.2 kg BP: 84/42 RVIDd: 2.0 cm (< 3.3) IVSd: 0.7 cm (0.6 - 1.1) LVIDd: 4.1 cm (3.9 - 5.3) LVPWd: 0.9 cm (0.6 - 1.1) IVSs: 1.1 cm LVIDs: 2.8 cm LVPWs: 1.2 cm LA Diam: 1.9 cm (2.7 - 3.8) LAESV Index (A-L): 22.40 ml/m Ao Diam: 2.7 cm (2.0 - 3.7) AV Cusp: 2.0 cm (1.5 - 2.6) MV EXCURSION: 15.987 mm (> 18.000) MV EF SLOPE: 105 mm/s (70 - 150) EPSS: 0.6 cm MV E Richie: 0.84 m/s MV DecT: 296 ms MV A Richie: 0.92 m/s MV E/A Ratio: 0.91 RAP: 5.00 mmHg RVSP: 28.15 mmHg FINDINGS -------- Sinus rhythm. This was a technically good study. The left ventricular size is normal. Left ventricular wall thickness is normal. Overall left vent ricular systolic function is normal with, an EF between 55 - 60 %. The right ventricle is normal in size. Normal LA size by volume 22+/-6 ml/m2. The right atrium is normal in size. The aortic valve is trileaflet and appears structurally normal. The mitral valve is normal. There is trace to mild mitral regurgitation. Mild tricuspid regurgitation present. Right ventricular systolic pressure is normal at < 35 mmHg. Trace/mild (physiologic) pulmonic regurgitation. The aortic root size is normal. Normal inferior vena cava with normal inspiratory collapse consistent with estimated right atrial pre ssure of 5 mmHg. There is no pericardial effusion. CONCLUSIONS -------- 1. Sinus rhythm. 2. This was a technically good study. 3. Left ventricular wall thickness is normal. 4. Overall left ventricular systolic function is normal with, an EF between 55 - 60 %. 5. The right ventricle is normal in size. 6. Normal LA size by volume 22+/-6 ml/m2. 7. The aortic valve is trileaflet and appears structurally normal. 8. There is trace to mild mitral regurgitation. 9. Mild tricuspid regurgitation present. 10. Right ventricular systolic pressure is normal at < 35 mmHg. 11. Trace/mild (physiologic) pulmonic regurgitation. 12. The aortic root size is normal. 13. Normal inferior vena cava with normal inspiratory collapse consistent with estimated right atrial pressure of 5 mmHg. 14. There is no pericardial effusion. CRISIS THERAPIST: Ileana Garg RDCS
[2017-05-16] MEDS ORDERED: VANCOMYCIN TROUGH DUE 1 EACH MISC MISCELLANE ONE (11:00)
[2017-05-16 11:37] LABS: Glucose,Whole Blood 114 mg/dL (75-99)
--- NOTE | 2017-05-16 15:46 | P.PN ---
Subjective Progress Note Date: 05/16/17 Principal diagnosis: generalized weakness this is a 56-year-old female with history of muscular dystrophy who presented to the hospital with complaints of generalized weakness with associated difficulty in swallowing. She was also found to be quite hypoxic on admission here. She apparently had been running fevers at home up to 101.0. She also had some complaints of shortness of breath which was why cardiology consultation was requested yesterday. Patient did have an echocardiogram with Doppler study performed which revealed an ejection fraction of 55-60%.diuresed well through the night last night, putting out 5000ml, potassium today 4.0, BUN 22, creatinine 0.6. AST 45, ALT 110, alk phos 202.blood pressure today in the high 80s to low 90s systolic. We will decrease the Coreg to 3.125 mg twice a day, we will also discontinue the IV Lasix and start the patient on oral diuretics from tomorrow. Decrease dose of Cozaar. Objective - Vital Signs Vital signs: Vital Signs Temp 97.1 F L 05/16/17 12:00 Pulse 70 05/16/17 12:00 Resp 18 05/16/17 12:00 BP 106/75 05/16/17 12:00 Pulse Ox 93 L 05/16/17 12:00 Intake & Output 05/15/17 05/16/17 05/16/17 18:59 06:59 18:59 Intake Total 250 0 Output Total 4300 1000 1600 Balance -4300 -750 -1600 Weight 42.5 kg Intake: IV 250 Azithromycin 500 mg In 250 Sodium Chloride 0.9% 250 ml @ 125 mls/hr IVPB DAILY@1700 [facility] Rx#: [id number] Oral 0 Output: Urine 4300 1000 1600 Other: Voiding Method Bedside Commode Bedside Commode Bedside Commode # Voids 1 # Bowel Movements 1 - Exam PHYSICAL EXAMINATION: HEENT: [Head is atraumatic, normocephalic. Pupils equal, round. Neck is supple. There is no elevated jugular venous pressure.] HEART EXAMINATION: [Heart S1, S2 normal. No murmur or gallop heard.] CHEST EXAMINATION:[ Lungs reveal by basilar crackles. ABDOMEN: [ Soft, nontender. Bowel sounds are heard. No organomegaly noted]. EXTREMITIES:[ 2+ peripheral pulses with no evidence of peripheral edema and no calf tenderness noted]. NEUROLOGIC [patient is awake, alert and oriented -3.] . - Labs CBC & Chem 7: 05/15/17 06:14 05/16/17 05:54 Labs: Abnormal Lab Results - Last 24 Hours (Table) 05/15/17 05/16/17 05/16/17 Range/Units 17:05 05:54 05:59 Chloride 97 L (98-107) mmol/L Carbon Dioxide 32 H (22-30) mmol/L BUN 22 H (7-17) mg/dL Glucose 112 H (74-99) mg/dL POC Glucose (mg/dL) 116 H 129 H (75-99) mg/dL Total Bilirubin <0.1 L (0.2-1.3) mg/dL AST 45 H (14-36) U/L ALT 110 H (9-52) U/L Alkaline Phosphatase 202 H (38-126) U/L Albumin 3.2 L (3.5-5.0) g/dL 05/16/17 Range/Units 11:34 Chloride (98-107) mmol/L Carbon Dioxide (22-30) mmol/L BUN (7-17) mg/dL Glucose (74-99) mg/dL POC Glucose (mg/dL) 114 H (75-99) mg/dL Total Bilirubin (0.2-1.3) mg/dL AST (14-36) U/L ALT (9-52) U/L Alkaline Phosphatase (38-126) U/L Albumin (3.5-5.0) g/dL Microbiology - Last 24 Hours (Table) 05/14/17 18:15 Urine Culture - Final Urine,Voided 05/14/17 16:00 Blood Culture - Preliminary Blood No Growth after 24 hours Assessment and Plan Plan: Assessment and plan #1 shortness of breath with evidence of hypoxemia, likely secondary to COPD exacerbation as well as mild congestive heart failure, diastolic acute on chronic. #2 fever, possible pneumonia,possible upper respiratory infection.patient on antibiotics. #3 muscular dystrophy #4 hypotension Plan We will discontinue the IV Lasix. Possibly resume oral Lasix tomorrow morning. Decrease Coreg to 3.125 mg, decrease Cozaar to 12.5 mg daily. Continue to monitor blood pressure. DNP note has been reviewed, I agree with a documented findings and plan of care. Patient was seen and examined.
[2017-05-16] MEDS: AZITHROMYCIN 500 MG in SODIUM CHLORIDE 0.9% 250 ML IVPB SCH (16:59)
[2017-05-16] MEDS: CARVEDILOL 3.125 MG TAB PO SCH (16:59)
[2017-05-16 19:48] LABS: Glucose,Whole Blood 82 mg/dL (75-99)
[2017-05-16] MEDS: MELATONIN 3 MG TABLET PO PRN (22:31)
[2017-05-16] MEDS: ZOLPIDEM 10 MG TAB PO PRN (22:32)
[2017-05-17 00:15] LABS: Glucose,Whole Blood 108 mg/dL (75-99)
[2017-05-17] MEDS: INSULIN LISPRO (humaLOG) 300 UNIT/3 ML VIAL SQ SCH ×4 (02:01→23:15)
[2017-05-17 05:55] LABS: Glucose,Whole Blood 125 mg/dL (75-99)
[2017-05-17] MEDS: CARVEDILOL 3.125 MG TAB PO SCH ×2 (06:26→18:18)
[2017-05-17] MEDS: SODIUM CHLORIDE 0.9% 1,000 ML IV SCH ×3 (06:26→18:18)
[2017-05-17] MEDS: HYDROcodone/APAP 7.5-325MG 1 EACH TAB PO PRN ×3 (06:27→18:17)
[2017-05-17 06:32] LABS: CH 31.2; CHCM 32.2; HCT 33.4 % (34.0-46.0); HDW 2.24; HGB 10.8 gm/dL (11.4-16.0); MCH 31.5 pg (25.0-35.0); MCHC 32.4 g/dL (31.0-37.0); MCV 97.3 fL (80.0-100.0); Mean Platelet Volume 6.6; RBC 3.43 m/uL (3.80-5.40); RDW 12.6 % (11.5-15.5)
[2017-05-17 06:50] LABS: ALT 78 U/L (9-52); AST 30 U/L (14-36); Alkaline Phosphatase 175 U/L (38-126); Anion Gap 9 mmol/L; Blood Urea Nitrogen 23 mg/dL (7-17); Calcium 9.6 mg/dL (8.4-10.2); Carbon Dioxide 35 mmol/L (22-30); Chloride 96 mmol/L (98-107); Glucose 120 mg/dL (74-99); Non-African American GFR(MDRD) >60 (>60 ml/min/1.73 sqM); Potassium 4.2 mmol/L (3.5-5.1); Sodium 140 mmol/L (137-145); Total Bilirubin <0.1 mg/dL (0.2-1.3)
--- NOTE | 2017-05-17 09:14 | CDI ---
In responding to this query, please exercise your independent professional judgment. The [facility] Coding Staff and Clinical Documentation Specialists appreciate your assistance in clarifying documentation, maintaining compliance with coding guidelines, accurately documenting patients condition and capturing severity of illness. The fact that a question is asked does not imply that any particular answer is desired or expected. Communication forms are a method of clarifying documentation and are not made part of the Legal Health Record. Thank you in advance for your clarification. Last Revision, September 2016 Mya Martino [address] [place] [address] Documentation Clarification Form Date: 05/18/2017 8:15:00 AM From: Sharmila Ellsworth CCS, CCDS Admit Date: 05/14/2017 6:25:00 PM Patient Name: Natasha Irby Visit Number: [id number] Discharge Date: Dr. Leodan Crespo: Please clarify the type of CHF you are treating the patient for: CHF is documented in the History & Physical and Cardiology consult as *Acute on Chronic Systolic CHF. Per the 05/16 cardiology progress note: *Acute on Chronic Diastolic CHF. History/Risk Factors: Myotonic Muscular Dystophy, Dysphagia w/PEG tube, Hypertension. Clinical Indicators: VS/Pulse OX: 91 ra, 94 2Lnc. BNP: 5950 Echocardiogram Results (05/16): Left ventricular systolic function normal w/EF 55-60%. Chest X Ray: Consider CHF exacerbation, new mild cardiomegaly. Treatment: IV fluid bolus in ER, Albuterol INH, IV Azithromycin, IV Vancomycin, IV Maxipime In your professional opinion, can you please clarify the acuity and type of CHF if known? Systolic Heart Failure: o Acute o Chronic o Acute on Chronic Diastolic Heart Failure: o Acute o Chronic o Acute on Chronic Systolic & Diastolic Heart Failure: o Acute o Chronic o Acute on Chronic Unable to determine Other, please specify Please document in your progress notes and discharge summary in order to capture severity of illness and risk of mortality. Include clinical findings that support your diagnosis. FYI: Press F11 to launch patient chart. LYNDA
[2017-05-17] MEDS: ASPIRIN 81 MG PO SCH (10:01)
[2017-05-17] MEDS: AZITHROMYCIN 500 MG TAB PO SCH (10:01)
[2017-05-17] MEDS: LOSARTAN 25 MG TAB PO SCH (10:01)
[2017-05-17] MEDS: SPIRONOLACTONE 25 MG TAB PO SCH (10:02)
[2017-05-17 11:55] LABS: Glucose,Whole Blood 104 mg/dL (75-99)
--- NOTE | 2017-05-17 14:26 | P.PN ---
Subjective Progress Note Date: 05/17/17 Principal diagnosis: Cough and shortness of breath. This is a 56-year-old white cardiology does show probable mild nonischemic cardiac myopathy systolic type. The patient is improved but still having significant cough. Low-grade fever spikes are also noted. No diarrhea. Echocardiogram also does not report any type of significant heart Objective - Vital Signs Vital signs: Vital Signs Temp 97.0 F L 05/17/17 08:00 Pulse 71 05/17/17 12:00 Resp 16 05/17/17 12:00 BP 121/64 05/17/17 12:00 Pulse Ox 95 05/17/17 12:00 Intake & Output 05/16/17 05/17/17 05/17/17 18:59 06:59 18:59 Intake Total 0 450 350 Output Total 1600 225 150 Balance -1600 225 200 Weight 42.5 kg 40 kg Intake: Oral 0 0 Tube Feeding 450 350 Output: Urine 1600 225 150 Other: Voiding Method Bedside Commode Bedside Commode Bedside Commode # Voids 0 1 1 # Bowel Movements 1 - Constitutional General appearance: Present: thin - EENT Eyes: Absent: abnormal pupil - Respiratory Respiratory: bilateral: rhonchi - Cardiovascular Rhythm: regular Heart sounds: normal: S1, S2 - Gastrointestinal General gastrointestinal: Present: soft. Absent: tenderness - Integumentary Integumentary: Absent: cyanotic - Neurologic Neurologic: Present: CNII-XII intact, focal deficits - Musculoskeletal Musculoskeletal: Present: generalized weakness - Labs CBC & Chem 7: 05/17/17 05:51 05/17/17 05:51 Labs: Abnormal Lab Results - Last 24 Hours (Table) 05/17/17 05/17/17 05/17/17 Range/Units 00:11 05:51 05:51 WBC 11.0 H (3.8-10.6) k/uL RBC 3.43 L (3.80-5.40) m/uL Hgb 10.8 L (11.4-16.0) gm/dL Hct 33.4 L (34.0-46.0) % Plt Count 567 H (150-450) k/uL Chloride 96 L (98-107) mmol/L Carbon Dioxide 35 H (22-30) mmol/L BUN 23 H (7-17) mg/dL Glucose 120 H (74-99) mg/dL POC Glucose (mg/dL) 108 H (75-99) mg/dL Total Bilirubin <0.1 L (0.2-1.3) mg/dL ALT 78 H (9-52) U/L Alkaline Phosphatase 175 H (38-126) U/L Total Protein 6.0 L (6.3-8.2) g/dL Albumin 3.0 L (3.5-5.0) g/dL 05/17/17 05/17/17 Range/Units 05:53 11:50 WBC (3.8-10.6) k/uL RBC (3.80-5.40) m/uL Hgb (11.4-16.0) gm/dL Hct (34.0-46.0) % Plt Count (150-450) k/uL Chloride (98-107) mmol/L Carbon Dioxide (22-30) mmol/L BUN (7-17) mg/dL Glucose (74-99) mg/dL POC Glucose (mg/dL) 125 H 104 H (75-99) mg/dL Total Bilirubin (0.2-1.3) mg/dL ALT (9-52) U/L Alkaline Phosphatase (38-126) U/L Total Protein (6.3-8.2) g/dL Albumin (3.5-5.0) g/dL Microbiology - Last 24 Hours (Table) 05/14/17 16:00 Blood Culture - Preliminary Blood No Growth after 48 hours Assessment and Plan (1) Nonischemic cardiomyopathy Current Visit: Yes Status: Acute Code(s): I42.8 - OTHER CARDIOMYOPATHIES SNOMED Code(s): 72707200 (2) Systolic congestive heart failure Current Visit: Yes Status: Acute Code(s): I50.20 - UNSPECIFIED SYSTOLIC ( CONGESTIVE) HEART FAILURE SNOMED Code(s): 297496030 (3) Community acquired pneumonia Current Visit: Yes Status: Acute Code(s): J18.9 - PNEUMONIA, UNSPECIFIED ORGANISM SNOMED Code(s): 185121673 Plan: Continue current regimen of treatment. Check CBC and CMP in a.m. Appreciate cardiology input.
--- NOTE | 2017-05-17 15:14 | P.PN ---
Subjective Progress Note Date: 05/17/17 Principal diagnosis: generalized weakness this is a 56-year-old female with history of muscular dystrophy who presented to the hospital with complaints of generalized weakness with associated difficulty in swallowing. She was also found to be quite hypoxic on admission here. She apparently had been running fevers at home up to 101.0. She also had some complaints of shortness of breath which was why cardiology consultation was requested. Patient did have an echocardiogram with Doppler study performed which revealed an ejection fraction of 55-60%.diuresed well through the night last night, weight is down 2 kg today. WBC 11, hemoglobin 10.8, potassium 4.2, BUN 23, creatinine 0.5. We will resume Lasix orally 20 mg daily. B/P today 120/60. Objective - Vital Signs Vital signs: Vital Signs Temp 97.0 F L 05/17/17 08:00 Pulse 71 05/17/17 12:00 Resp 16 05/17/17 12:00 BP 121/64 05/17/17 12:00 Pulse Ox 95 05/17/17 12:00 Intake & Output 05/16/17 05/17/17 05/17/17 18:59 06:59 18:59 Intake Total 0 450 350 Output Total 1600 225 150 Balance -1600 225 200 Weight 42.5 kg 40 kg Intake: Oral 0 0 Tube Feeding 450 350 Output: Urine 1600 225 150 Other: Voiding Method Bedside Commode Bedside Commode Bedside Commode # Voids 0 1 1 # Bowel Movements 1 - Exam PHYSICAL EXAMINATION: HEENT: [Head is atraumatic, normocephalic. Pupils equal, round. Neck is supple. There is no elevated jugular venous pressure.] HEART EXAMINATION: [Heart S1, S2 normal. No murmur or gallop heard.] CHEST EXAMINATION:[ Lungs reveal by basilar crackles. ABDOMEN: [ Soft, nontender. Bowel sounds are heard. No organomegaly noted]. EXTREMITIES:[ 2+ peripheral pulses with no evidence of peripheral edema and no calf tenderness noted]. NEUROLOGIC [patient is awake, alert and oriented -3.] . - Labs CBC & Chem 7: 05/17/17 05:51 05/17/17 05:51 Labs: Abnormal Lab Results - Last 24 Hours (Table) 05/17/17 05/17/17 05/17/17 Range/Units 00:11 05:51 05:51 WBC 11.0 H (3.8-10.6) k/uL RBC 3.43 L (3.80-5.40) m/uL Hgb 10.8 L (11.4-16.0) gm/dL Hct 33.4 L (34.0-46.0) % Plt Count 567 H (150-450) k/uL Chloride 96 L (98-107) mmol/L Carbon Dioxide 35 H (22-30) mmol/L BUN 23 H (7-17) mg/dL Glucose 120 H (74-99) mg/dL POC Glucose (mg/dL) 108 H (75-99) mg/dL Total Bilirubin <0.1 L (0.2-1.3) mg/dL ALT 78 H (9-52) U/L Alkaline Phosphatase 175 H (38-126) U/L Total Protein 6.0 L (6.3-8.2) g/dL Albumin 3.0 L (3.5-5.0) g/dL 05/17/17 05/17/17 Range/Units 05:53 11:50 WBC (3.8-10.6) k/uL RBC (3.80-5.40) m/uL Hgb (11.4-16.0) gm/dL Hct (34.0-46.0) % Plt Count (150-450) k/uL Chloride (98-107) mmol/L Carbon Dioxide (22-30) mmol/L BUN (7-17) mg/dL Glucose (74-99) mg/dL POC Glucose (mg/dL) 125 H 104 H (75-99) mg/dL Total Bilirubin (0.2-1.3) mg/dL ALT (9-52) U/L Alkaline Phosphatase (38-126) U/L Total Protein (6.3-8.2) g/dL Albumin (3.5-5.0) g/dL Microbiology - Last 24 Hours (Table) 05/14/17 16:00 Blood Culture - Preliminary Blood No Growth after 48 hours Assessment and Plan Plan: Assessment and plan #1 shortness of breath with evidence of hypoxemia, likely secondary to COPD exacerbation as well as mild congestive heart failure, diastolic acute on chronic. #2 fever, possible pneumonia,possible upper respiratory infection.patient on antibiotics. #3 muscular dystrophy #4 hypotension Plan Start the patient on Lasix 20 mg one tablet by mouth twice a day. Continue other medications. DNP note has been reviewed, I agree with a documented findings and plan of care. Patient was seen and examined.
[2017-05-18 00:05] LABS: Glucose,Whole Blood 95 mg/dL (75-99)
[2017-05-18] MEDS: HYDROcodone/APAP 7.5-325MG 1 EACH TAB PO PRN ×2 (00:22→06:19)
[2017-05-18] MEDS: MELATONIN 3 MG TABLET PO PRN (00:22)
[2017-05-18] MEDS: ZOLPIDEM 10 MG TAB PO PRN (00:22)
[2017-05-18] MEDS: INSULIN LISPRO (humaLOG) 300 UNIT/3 ML VIAL SQ SCH ×4 (05:19→18:35)
[2017-05-18] MEDS: SODIUM CHLORIDE 0.9% 1,000 ML IV SCH ×3 (05:19→11:54)
[2017-05-18 05:53] LABS: Glucose,Whole Blood 102 mg/dL (75-99)
[2017-05-18] MEDS: CARVEDILOL 3.125 MG TAB PO SCH ×2 (06:20→17:13)
--- NOTE | 2017-05-18 07:48 | P.PN ---
Subjective Principal diagnosis: Cough and shortness of breath. This is a 56-year-old white female with known history of muscular dystrophy with pneumonia clinically. The patient is slowly improving. Ejection fraction on cardiology evaluation is normal. The patient has diuresed well. She still has significant congestion of cough. No diarrhea is noted. Objective - Vital Signs Vital signs: Vital Signs Temp 96.4 F L 05/18/17 04:00 Pulse 74 05/18/17 04:00 Resp 16 05/18/17 04:00 BP 118/66 05/18/17 04:00 Pulse Ox 94 L 05/18/17 04:00 Intake & Output 05/17/17 05/18/17 05/18/17 18:59 06:59 18:59 Intake Total 400 440 Output Total 150 450 Balance 250 -10 Weight 40.2 kg Intake: Intake, IV Titration 240 Amount Sodium Chloride 0.9% 1, 240 000 ml @ 30 mls/hr IV . Q[facility]H [facility] Rx#:[id number] Oral 0 Tube Feeding 400 200 Output: Urine 150 450 Other: Voiding Method Bedside Commode Bedside Commode # Voids 1 1 - Constitutional General appearance: Present: thin - EENT Eyes: Absent: abnormal pupil - Respiratory Respiratory: left: diminished, rhonchi - Cardiovascular Rhythm: regular Heart sounds: normal: S1, S2 - Gastrointestinal General gastrointestinal: Absent: tenderness - Neurologic Neurologic: Present: CNII-XII intact - Musculoskeletal Musculoskeletal: Present: generalized weakness - Labs CBC & Chem 7: 05/17/17 05:51 05/17/17 05:51 Labs: Abnormal Lab Results - Last 24 Hours (Table) 05/17/17 05/18/17 Range/Units 11:50 05:50 POC Glucose (mg/dL) 104 H 102 H (75-99) mg/dL Microbiology - Last 24 Hours (Table) 05/14/17 16:00 Blood Culture - Preliminary Blood No Growth after 72 hours Assessment and Plan (1) Nonischemic cardiomyopathy Current Visit: Yes Status: Acute Code(s): I42.8 - OTHER CARDIOMYOPATHIES SNOMED Code(s): 80131837 (2) Systolic congestive heart failure Current Visit: Yes Status: Acute Code(s): I50.20 - UNSPECIFIED SYSTOLIC ( CONGESTIVE) HEART FAILURE SNOMED Code(s): 589295887 (3) Community acquired pneumonia Current Visit: Yes Status: Acute Code(s): J18.9 - PNEUMONIA, UNSPECIFIED ORGANISM SNOMED Code(s): 623077701 Plan: I will continue current regimen of treatment. Check CBC and CP in a.m. If no significant improvement, consider pulmonology evaluation. Anticipate discharge in the next 2-3 days.
[2017-05-18] MEDS: FUROSEMIDE 20 MG TAB PO SCH (08:47)
[2017-05-18] MEDS: ASPIRIN 81 MG PO SCH (08:47)
[2017-05-18] MEDS: LOSARTAN 25 MG TAB PO SCH (08:47)
[2017-05-18] MEDS: AZITHROMYCIN 500 MG TAB PO SCH (08:48)
[2017-05-18] MEDS: SPIRONOLACTONE 25 MG TAB PO SCH (08:48)
[2017-05-18 09:38] LABS: Anion Gap 7 mmol/L; Blood Urea Nitrogen 19 mg/dL (7-17); Calcium 10.1 mg/dL (8.4-10.2); Carbon Dioxide 30 mmol/L (22-30); Chloride 103 mmol/L (98-107); Glucose 90 mg/dL (74-99); Non-African American GFR(MDRD) >60 (>60 ml/min/1.73 sqM); Potassium 5.6 mmol/L (3.5-5.1); Sodium 140 mmol/L (137-145)
[2017-05-18] MEDS: HYDROcodone/APAP 10-325MG 1 EACH TAB PO PRN ×3 (11:16→23:10)
[2017-05-18 11:44] LABS: Glucose,Whole Blood 97 mg/dL (75-99)
--- NOTE | 2017-05-18 11:45 | P.PN ---
Subjective Progress Note Date: 05/18/17 Principal diagnosis: generalized weakness this is a 56-year-old female with history of muscular dystrophy who presented to the hospital with complaints of generalized weakness with associated difficulty in swallowing. She was also found to be quite hypoxic on admission here. She apparently had been running fevers at home up to 101.0. She also had some complaints of shortness of breath which was why cardiology consultation was requested. Patient did have an echocardiogram with Doppler study performed which revealed an ejection fraction of 55-60%.diuresed well through the night last night, weight is down 2 kg today. WBC 11, hemoglobin 10.8, potassium 4.2, BUN 23, creatinine 0.5. We will resume Lasix orally 20 mg daily. B/P today 120/60. 05/18/2017 Patient seen and examined this morning, complaining of a cough, nonproductive. Potassium this morning 5.6, BUN 19, creatinine 0.4. Currently on by mouth Lasix. On Zithromax and ceftriaxone. Objective - Vital Signs Vital signs: Vital Signs Temp 97.0 F L 05/18/17 08:00 Pulse 71 05/18/17 08:00 Resp 20 05/18/17 08:00 BP 120/72 05/18/17 08:00 Pulse Ox 90 L 05/18/17 08:00 Intake & Output 05/17/17 05/18/17 05/18/17 18:59 06:59 18:59 Intake Total 400 440 495 Output Total 150 450 250 Balance 250 -10 245 Weight 40.2 kg Intake: Intake, IV Titration 240 Amount Sodium Chloride 0.9% 1, 240 000 ml @ 30 mls/hr IV . Q[facility]H [facility] Rx#:[id number] Oral 0 Tube Feeding 400 200 495 Output: Urine 150 450 250 Other: Voiding Method Bedside Commode Bedside Commode Bedside Commode # Voids 1 1 1 # Bowel Movements 1 - Exam PHYSICAL EXAMINATION: HEENT: [Head is atraumatic, normocephalic. Pupils equal, round. Neck is supple. There is no elevated jugular venous pressure.] HEART EXAMINATION: [Heart S1, S2 normal. No murmur or gallop heard.] CHEST EXAMINATION:[ Lungs reveal by basilar crackles and fine wheezing throughout. ABDOMEN: [ Soft, nontender. Bowel sounds are heard. No organomegaly noted]. EXTREMITIES:[ 2+ peripheral pulses with no evidence of peripheral edema and no calf tenderness noted]. NEUROLOGIC [patient is awake, alert and oriented -3.] . - Labs CBC & Chem 7: 05/17/17 05:51 05/18/17 09:05 Labs: Abnormal Lab Results - Last 24 Hours (Table) 05/17/17 05/18/17 05/18/17 Range/Units 11:50 05:50 09:05 Potassium 5.6 H (3.5-5.1) mmol/L BUN 19 H (7-17) mg/dL Creatinine 0.46 L (0.52-1.04) mg/dL POC Glucose (mg/dL) 104 H 102 H (75-99) mg/dL Microbiology - Last 24 Hours (Table) 05/14/17 16:00 Blood Culture - Preliminary Blood No Growth after 72 hours Assessment and Plan Plan: Assessment and plan #1 shortness of breath with evidence of hypoxemia, likely secondary to COPD exacerbation as well as mild congestive heart failure, diastolic acute on chronic. #2 fever, possible pneumonia,possible upper respiratory infection.patient on antibiotics. #3 muscular dystrophy #4 hypotension Plan From cardiology's perspective, we will recommend to continue the patient her current medications. We will make her a follow-up appointment in the office with Dr. Le post discharge. We will follow her with you now on an as- needed basis only, please don't hesitate to call with any questions. DNP note has been reviewed, I agree with a documented findings and plan of care. Patient was seen and examined.
--- NOTE | 2017-05-18 13:31 | XR ---
EXAMINATION TYPE: XR chest 1V DATE OF EXAM: 05/18/2017 COMPARISON: 05/14/2017 HISTORY: Shortness of breath TECHNIQUE: Single frontal view of the chest is obtained. FINDINGS: Bilateral consolidation and pleural effusion stable. No overt failure or pneumothorax. Aviva pical pleural thickening stable. IMPRESSION: Bilateral infiltrate and small effusion stable.
[2017-05-18 18:32] LABS: Glucose,Whole Blood 82 mg/dL (75-99)
[2017-05-19 00:07] LABS: Glucose,Whole Blood 105 mg/dL (75-99)
[2017-05-19] MEDS: MELATONIN 3 MG TABLET PO PRN (00:17)
[2017-05-19] MEDS: ZOLPIDEM 10 MG TAB PO PRN (00:17)
[2017-05-19] MEDS: INSULIN LISPRO (humaLOG) 300 UNIT/3 ML VIAL SQ SCH ×4 (03:18→18:53)
[2017-05-19] MEDS: SODIUM CHLORIDE 0.9% 1,000 ML IV SCH ×4 (03:18→21:59)
[2017-05-19] MEDS: HYDROcodone/APAP 10-325MG 1 EACH TAB PO PRN ×4 (05:35→23:06)
[2017-05-19 05:51] LABS: Glucose,Whole Blood 116 mg/dL (75-99)
[2017-05-19] MEDS: CARVEDILOL 3.125 MG TAB PO SCH ×2 (06:39→17:23)
[2017-05-19 07:01] LABS: CH 29.9; HCT 33.6 % (34.0-46.0); HDW 2.13; HGB 10.6 gm/dL (11.4-16.0); MCH 30.5 pg (25.0-35.0); MCHC 31.4 g/dL (31.0-37.0); MCV 96.9 fL (80.0-100.0); Mean Platelet Volume 7.1; RBC 3.47 m/uL (3.80-5.40); RDW 13.5 % (11.5-15.5); WBC 12.7 k/uL (3.8-10.6)
[2017-05-19 07:24] LABS: ALT 52 U/L (9-52); AST 28 U/L (14-36); Alkaline Phosphatase 136 U/L (38-126); Anion Gap 7 mmol/L; Blood Urea Nitrogen 20 mg/dL (7-17); Calcium 9.8 mg/dL (8.4-10.2); Carbon Dioxide 28 mmol/L (22-30); Chloride 102 mmol/L (98-107); Glucose 98 mg/dL (74-99); Non-African American GFR(MDRD) >60 (>60 ml/min/1.73 sqM); Potassium 5.5 mmol/L (3.5-5.1); Sodium 137 mmol/L (137-145); Total Bilirubin <0.1 mg/dL (0.2-1.3); Total Protein 5.9 g/dL (6.3-8.2)
--- NOTE | 2017-05-19 07:26 | P.PN ---
Subjective Principal diagnosis: Continue care/bilateral pneumonia. This is a continue present on a 48-year-old white female with muscular dystrophy who was brought in for significant cough. The patient has bilateral infiltrate. The patient feels much better at this time. No new complaints. No significant nausea, vomiting or diarrhea. Echocardiogram did not show significant heart failure element. Objective - Vital Signs Vital signs: Vital Signs Temp 97.8 F 05/19/17 04:00 Pulse 73 05/19/17 04:00 Resp 20 05/19/17 04:00 BP 95/59 05/19/17 04:00 Pulse Ox 94 L 05/19/17 04:00 Intake & Output 05/18/17 05/19/17 05/19/17 18:59 06:59 18:59 Intake Total 495 480 Output Total 625 250 Balance -130 230 Weight 40.2 kg 40.1 kg Intake: Tube Feeding 495 480 Output: Urine 625 250 Other: Voiding Method Bedside Commode Bedside Commode # Voids 1 1 # Bowel Movements 1 - Constitutional General appearance: Present: thin - EENT Eyes: Absent: abnormal pupil - Respiratory Respiratory: bilateral: diminished - Cardiovascular Rhythm: regular Heart sounds: normal: S1, S2 - Gastrointestinal General gastrointestinal: Present: soft. Absent: tenderness - Musculoskeletal Musculoskeletal: Present: generalized weakness - Labs CBC & Chem 7: 05/19/17 06:17 05/18/17 09:05 Labs: Abnormal Lab Results - Last 24 Hours (Table) 05/18/17 05/19/17 05/19/17 Range/Units 09:05 00:03 05:48 WBC (3.8-10.6) k/uL RBC (3.80-5.40) m/uL Hgb (11.4-16.0) gm/dL Hct (34.0-46.0) % Plt Count (150-450) k/uL Potassium 5.6 H (3.5-5.1) mmol/L BUN 19 H (7-17) mg/dL Creatinine 0.46 L (0.52-1.04) mg/dL POC Glucose (mg/dL) 105 H 116 H (75-99) mg/dL 05/19/17 Range/Units 06:17 WBC 12.7 H (3.8-10.6) k/uL RBC 3.47 L (3.80-5.40) m/uL Hgb 10.6 L (11.4-16.0) gm/dL Hct 33.6 L (34.0-46.0) % Plt Count 594 H (150-450) k/uL Potassium (3.5-5.1) mmol/L BUN (7-17) mg/dL Creatinine (0.52-1.04) mg/dL POC Glucose (mg/dL) (75-99) mg/dL Microbiology - Last 24 Hours (Table) 05/14/17 16:00 Blood Culture - Preliminary Blood No Growth after 96 hours Assessment and Plan (1) Nonischemic cardiomyopathy Current Visit: Yes Status: Ruled-out Code(s): I42.8 - OTHER CARDIOMYOPATHIES SNOMED Code(s): 23198505 (2) Systolic congestive heart failure Current Visit: Yes Status: Ruled-out Code(s): I50.20 - UNSPECIFIED SYSTOLIC (CONGESTIVE) HEART FAILURE SNOMED Code(s): 564941304 (3) Community acquired pneumonia Current Visit: Yes Status: Acute Code(s): J18.9 - PNEUMONIA, UNSPECIFIED ORGANISM SNOMED Code(s): 886231721 (4) Muscular dystrophy Current Visit: Yes Status: Acute Code(s): G71.0 - MUSCULAR DYSTROPHY SNOMED Code(s): 96376017 Plan: Continue current regimen of antibiotic treatment with ceftriaxone and Zithromax. Anticipate discharge in next 24-40 hours
[2017-05-19] MEDS: LOSARTAN 25 MG TAB PO SCH (09:39)
[2017-05-19] MEDS: ASPIRIN 81 MG PO SCH (09:39)
[2017-05-19] MEDS: AZITHROMYCIN 500 MG TAB PO SCH (09:39)
[2017-05-19] MEDS: FUROSEMIDE 20 MG TAB PO SCH (09:40)
[2017-05-19] MEDS: SPIRONOLACTONE 25 MG TAB PO SCH (09:48)
[2017-05-19 11:47] LABS: Glucose,Whole Blood 100 mg/dL (75-99)
[2017-05-19 16:42] LABS: Glucose,Whole Blood 99 mg/dL (75-99)
[2017-05-19 20:49] LABS: Glucose,Whole Blood 90 mg/dL (75-99)
[2017-05-19 22:56] LABS: Anion Gap 8 mmol/L; Blood Urea Nitrogen 19 mg/dL (7-17); Calcium 10.5 mg/dL (8.4-10.2); Carbon Dioxide 30 mmol/L (22-30); Chloride 99 mmol/L (98-107); Glucose 96 mg/dL (74-99); Non-African American GFR(MDRD) >60 (>60 ml/min/1.73 sqM); Sodium 137 mmol/L (137-145)
[2017-05-20] MEDS: MELATONIN 3 MG TABLET PO PRN (00:16)
[2017-05-20] MEDS: ZOLPIDEM 10 MG TAB PO PRN (00:16)
[2017-05-20] MEDS: INSULIN LISPRO (humaLOG) 300 UNIT/3 ML VIAL SQ SCH ×4 (00:26→21:23)
[2017-05-20] MEDS: SODIUM CHLORIDE 0.9% 1,000 ML IV SCH ×3 (02:23→21:24)
[2017-05-20] MEDS: HYDROcodone/APAP 10-325MG 1 EACH TAB PO PRN ×4 (05:42→22:39)
[2017-05-20 05:50] LABS: Glucose,Whole Blood 96 mg/dL (75-99)
--- NOTE | 2017-05-20 08:32 | P.PN ---
Subjective Progress Note Date: 05/20/17 Principal diagnosis: Pneumonia continuing care. This is a continue present 56-year-old white female with history of pneumonia bilaterally. She hasn't underlying history of muscular dystrophy and has significant nutritional mentation secondary to PEG tube. She does not feel as though she can swallow appropriately today. We will continue crush her medications at this time. However, no fever or chills. No significant nausea or vomiting. No significant diarrhea stated. Objective - Vital Signs Vital signs: Vital Signs Temp 97.8 F 05/20/17 08:00 Pulse 77 05/20/17 08:00 Resp 12 05/20/17 08:00 BP 134/83 05/20/17 08:00 Pulse Ox 96 05/20/17 08:00 Intake & Output 05/19/17 05/20/17 05/20/17 18:59 06:59 18:59 Intake Total 920 220 Output Total 1150 200 Balance -230 20 Weight 42.5 kg Intake: Intake, IV Titration 360 Amount Sodium Chloride 0.9% 1, 360 000 ml @ 30 mls/hr IV . Q24H [facility] Rx#:[id number] Oral 10 Tube Feeding 550 220 Output: Urine 1150 200 Other: Voiding Method Bedside Commode # Voids 1 1 # Bowel Movements 1 - Constitutional General appearance: Present: obese - EENT Eyes: Absent: abnormal pupil - Neck Neck: Absent: lymphadenopathy - Respiratory Respiratory: left: rhonchi - Cardiovascular Rhythm: regular Heart sounds: normal: S1, S2 - Gastrointestinal General gastrointestinal: Present: soft. Absent: tenderness - Integumentary Integumentary: Present: normal - Neurologic Neurologic: Present: CNII-XII intact - Musculoskeletal Musculoskeletal: Present: generalized weakness - Labs CBC & Chem 7: 05/19/17 06:17 05/19/17 22:34 Labs: Abnormal Lab Results - Last 24 Hours (Table) 05/19/17 05/19/17 Range/Units 11:45 22:34 BUN 19 H (7-17) mg/dL Creatinine 0.50 L (0.52-1.04) mg/dL POC Glucose (mg/dL) 100 H (75-99) mg/dL Calcium 10.5 H (8.4-10.2) mg/dL Microbiology - Last 24 Hours (Table) 05/14/17 16:00 Blood Culture - Preliminary Blood No Growth after 120 hours Assessment and Plan (1) Nonischemic cardiomyopathy Current Visit: Yes Status: Ruled-out Code(s): I42.8 - OTHER CARDIOMYOPATHIES SNOMED Code(s): 64617632 (2) Systolic congestive heart failure Current Visit: Yes Status: Ruled-out Code(s): I50.20 - UNSPECIFIED SYSTOLIC (CONGESTIVE) HEART FAILURE SNOMED Code(s): 247559111 (3) Community acquired pneumonia Current Visit: Yes Status: Acute Code(s): J18.9 - PNEUMONIA, UNSPECIFIED ORGANISM SNOMED Code(s): 288438929 (4) Muscular dystrophy Current Visit: Yes Status: Acute Code(s): G71.0 - MUSCULAR DYSTROPHY SNOMED Code(s): 01010635 Plan: Continue current regimen of antiemetic treatment. Dr. Ayala screw covering for the weekend. Anticipate discharge in the next 24-48 hours if she is able to improve as far as respiratory status. Check CBC and CMP in a.m. Time with Patient: Less than 30
[2017-05-20] MEDS: ASPIRIN 81 MG PO SCH (08:35)
[2017-05-20] MEDS: AZITHROMYCIN 500 MG TAB PO SCH (08:35)
[2017-05-20] MEDS: FUROSEMIDE 20 MG TAB PO SCH (08:35)
[2017-05-20] MEDS: SPIRONOLACTONE 25 MG TAB PO SCH (08:35)
[2017-05-20] MEDS: LOSARTAN 25 MG TAB PO SCH (08:35)
[2017-05-20] MEDS: CARVEDILOL 3.125 MG TAB PO SCH ×2 (08:35→17:24)
--- NOTE | 2017-05-20 10:07 | XR ---
EXAMINATION TYPE: XR chest 1V portable DATE OF EXAM: 05/20/2017 HISTORY: pneumonia. REFERENCE: Previous study dated 05/18/2017. FINDINGS: There continue to be bilateral infiltrates, greater on the left than the right. There is a right-sided effusion which is partially cleared. There is a tiny left-sided effusion. Heart size is w ithin normal limits.. IMPRESSION: 1. CONTINUING BIBASILAR AIRSPACE DISEASE. 2. BILATERAL EFFUSIONS, GREATER ON THE RIGHT THAN THE LEFT.
[2017-05-20 11:55] VITALS: BMI 17.1
[2017-05-20 12:27] LABS: Glucose,Whole Blood 92 mg/dL (75-99)
[2017-05-20 17:55] LABS: Glucose,Whole Blood 79 mg/dL (75-99)
[2017-05-21] MEDS: ZOLPIDEM 10 MG TAB PO PRN (00:43)
[2017-05-21] MEDS: MELATONIN 3 MG TABLET PO PRN (00:58)
[2017-05-21 01:07] LABS: Glucose,Whole Blood 105 mg/dL (75-99)
[2017-05-21] MEDS: SODIUM CHLORIDE 0.9% 1,000 ML IV SCH ×2 (01:07→17:49)
[2017-05-21] MEDS: INSULIN LISPRO (humaLOG) 300 UNIT/3 ML VIAL SQ SCH ×4 (01:30→22:06)
[2017-05-21] MEDS: HYDROcodone/APAP 10-325MG 1 EACH TAB PO PRN ×4 (05:45→21:44)
[2017-05-21 07:14] LABS: Glucose,Whole Blood 128 mg/dL (75-99)
[2017-05-21 07:26] LABS: CH 30.7; HCT 34.5 % (34.0-46.0); HDW 2.11; HGB 10.4 gm/dL (11.4-16.0); MCH 30.2 pg (25.0-35.0); MCHC 30.3 g/dL (31.0-37.0); MCV 99.8 fL (80.0-100.0); Mean Platelet Volume 6.8; RBC 3.45 m/uL (3.80-5.40)
[2017-05-21 07:35] LABS: ALT 53 U/L (9-52); AST 37 U/L (14-36); Alkaline Phosphatase 121 U/L (38-126); Anion Gap 6 mmol/L; Blood Urea Nitrogen 18 mg/dL (7-17); Calcium 9.8 mg/dL (8.4-10.2); Carbon Dioxide 28 mmol/L (22-30); Chloride 105 mmol/L (98-107); Glucose 104 mg/dL (74-99); Non-African American GFR(MDRD) >60 (>60 ml/min/1.73 sqM); Potassium 5.2 mmol/L (3.5-5.1); Sodium 139 mmol/L (137-145); Total Bilirubin 0.1 mg/dL (0.2-1.3); Total Protein 6.2 g/dL (6.3-8.2)
[2017-05-21] MEDS: FUROSEMIDE 20 MG TAB PO SCH (09:35)
[2017-05-21] MEDS: AZITHROMYCIN 500 MG TAB PO SCH (09:35)
[2017-05-21] MEDS: ASPIRIN 81 MG PO SCH (09:35)
[2017-05-21] MEDS: SPIRONOLACTONE 25 MG TAB PO SCH (09:36)
[2017-05-21] MEDS: CARVEDILOL 3.125 MG TAB PO SCH ×2 (09:36→16:13)
[2017-05-21] MEDS: LOSARTAN 25 MG TAB PO SCH (09:36)
[2017-05-21 11:59] LABS: Glucose,Whole Blood 95 mg/dL (75-99)
--- NOTE | 2017-05-21 14:27 | P.PN ---
Subjective Patient is a very pleasant 56-year-old female with history of myotonic dystrophy is being treated for congestive heart failure exacerbation as well as bilateral pneumonia patient is clinically doing well, close to her baseline. Patient will be discharged tomorrow more antibiotics. Constitutional: Denied any fatigue denied any fever. Cardio vascular: denied any chest pain, palpitations Gastrointestinal denied any nausea vomiting Pulmonary: Denied any shortness of breath cough Neurologic denied any new focal deficits Objective - Vital Signs Vital signs: Vital Signs Temp 97.4 F L 05/21/17 14:20 Pulse 73 05/21/17 14:20 Resp 17 05/21/17 14:20 BP 130/73 05/21/17 14:20 Pulse Ox 96 05/21/17 14:20 Intake & Output 05/20/17 05/21/17 05/21/17 18:59 06:59 18:59 Intake Total 1170 Output Total 400 Balance 1170 -400 Weight 42.5 kg Intake: IV 1000 Sodium Chloride 0.9% 1, 1000 000 ml @ 100 mls/hr IV . Q10H [facility] Rx#:[id number] Intake, IV Titration 0 Amount Sodium Chloride 0.9% 1, 0 000 ml @ 30 mls/hr IV . Q24H [facility] Rx#:[id number] Tube Feeding 170 Output: Urine 400 Other: Voiding Method Bedside Commode # Voids 2 2 - Exam GENERAL: The patient is alert and oriented x3, not in any acute distress. Thin built female muscle atrophy all over the body HEENT: Pupils are round and equally reacting to light. EOMI. No scleral icterus. No conjunctival pallor. Normocephalic, atraumatic. No pharyngeal erythema. No thyromegaly. CARDIOVASCULAR: S1 and S2 present. No murmurs, rubs, or gallops. She does have elevated JVD PULMONARY: Decreased air entry bilateral basilar crackles. ABDOMEN: Soft, nontender, nondistended, normoactive bowel sounds. No palpable organomegaly. MUSCULOSKELETAL: No joint swelling or deformity. EXTREMITIES: No cyanosis, clubbing, or pedal edema. NEUROLOGICAL: Gross neurological examination did not reveal any new focal deficits. Does have chronic weakness from muscular dystrophy SKIN: No rashes. - Labs CBC & Chem 7: 05/21/17 06:44 05/21/17 06:44 Labs: Abnormal Lab Results - Last 24 Hours (Table) 05/21/17 05/21/17 05/21/17 Range/Units 01:05 06:44 06:44 WBC 13.0 H (3.8-10.6) k/uL RBC 3.45 L (3.80-5.40) m/uL Hgb 10.4 L (11.4-16.0) gm/dL MCHC 30.3 L (31.0-37.0) g/dL Plt Count 595 H (150-450) k/uL Potassium 5.2 H (3.5-5.1) mmol/L BUN 18 H (7-17) mg/dL Creatinine 0.45 L (0.52-1.04) mg/dL Glucose 104 H (74-99) mg/dL POC Glucose (mg/dL) 105 H (75-99) mg/dL Total Bilirubin 0.1 L (0.2-1.3) mg/dL AST 37 H (14-36) U/L ALT 53 H (9-52) U/L Total Protein 6.2 L (6.3-8.2) g/dL Albumin 3.1 L (3.5-5.0) g/dL 05/21/17 Range/Units 07:13 WBC (3.8-10.6) k/uL RBC (3.80-5.40) m/uL Hgb (11.4-16.0) gm/dL MCHC (31.0-37.0) g/dL Plt Count (150-450) k/uL Potassium (3.5-5.1) mmol/L BUN (7-17) mg/dL Creatinine (0.52-1.04) mg/dL Glucose (74-99) mg/dL POC Glucose (mg/dL) 128 H (75-99) mg/dL Total Bilirubin (0.2-1.3) mg/dL AST (14-36) U/L ALT (9-52) U/L Total Protein (6.3-8.2) g/dL Albumin (3.5-5.0) g/dL Microbiology - Last 24 Hours (Table) 05/14/17 16:00 Blood Culture - Final Blood No Growth after 144 hours Assessment and Plan Plan: #1 shortness of breath, hypoxemia: Secondary to possible COPD exacerbation patient was started on IV Lasix and losartan will be reviewed all that on will be discontinued because of hyperkalemia but will check the potassium tomorrow #2 patient is also being treated for pneumonia with Rocephin and azithromycin. #3 muscular dystrophy #4 congestive heart failure chronic systolic dysfunction with acute exacerbation #5 gastroesophageal reflux disease #6 hypertension 7 hypokalemia: Hold off on Aldactone losartan will be continued and will recheck the potassium tomorrow again
[2017-05-21] MEDS: HEPARIN SODIUM,PORCINE 5,000 UNIT/ML 1 ML VIAL SQ SCH ×2 (15:33→22:06)
[2017-05-21 17:57] LABS: Glucose,Whole Blood 101 mg/dL (75-99)
[2017-05-22 00:26] LABS: Glucose,Whole Blood 74 mg/dL (75-99)
[2017-05-22] MEDS: ZOLPIDEM 10 MG TAB PO PRN ×2 (01:13→22:47)
[2017-05-22 01:25] LABS: Glucose,Whole Blood 89 mg/dL (75-99)
[2017-05-22] MEDS: HYDROcodone/APAP 10-325MG 1 EACH TAB PO PRN ×4 (05:05→19:40)
[2017-05-22 06:45] LABS: Glucose,Whole Blood 113 mg/dL (75-99)
[2017-05-22 07:35] LABS: CH 30.9; CHCM 30.9; HCT 34.1 % (34.0-46.0); HDW 2.18; HGB 10.5 gm/dL (11.4-16.0); Hypochromasia Slight; MCHC 30.9 g/dL (31.0-37.0); MCV 100.3 fL (80.0-100.0); Mean Platelet Volume 6.8; WBC 14.2 k/uL (3.8-10.6)
[2017-05-22 07:46] LABS: Anion Gap 7 mmol/L; Blood Urea Nitrogen 17 mg/dL (7-17); Calcium 9.9 mg/dL (8.4-10.2); Carbon Dioxide 27 mmol/L (22-30); Chloride 106 mmol/L (98-107); Glucose 100 mg/dL (74-99); Non-African American GFR(MDRD) >60 (>60 ml/min/1.73 sqM); Potassium 5.1 mmol/L (3.5-5.1); Sodium 140 mmol/L (137-145)
[2017-05-22] MEDS: INSULIN LISPRO (humaLOG) 300 UNIT/3 ML VIAL SQ SCH (07:51)
[2017-05-22] MEDS: SODIUM CHLORIDE 0.9% 1,000 ML IV SCH ×3 (07:52→18:16)
[2017-05-22] MEDS: cefTRIAXone IN SWFI 1,000 MG/10 ML SYRINGE IVP SCH (09:16)
[2017-05-22] MEDS: FUROSEMIDE 20 MG TAB PO SCH (09:16)
[2017-05-22] MEDS: CARVEDILOL 3.125 MG TAB PO SCH ×2 (09:17→19:40)
[2017-05-22] MEDS: ASPIRIN 81 MG PO SCH (09:17)
[2017-05-22] MEDS: HEPARIN SODIUM,PORCINE 5,000 UNIT/ML 1 ML VIAL SQ SCH ×2 (09:17→22:07)
[2017-05-22] MEDS: LOSARTAN 25 MG TAB PO SCH (09:17)
[2017-05-22] MEDS: AZITHROMYCIN 500 MG TAB PO SCH (09:17)
--- NOTE | 2017-05-22 14:57 | P.PN ---
Subjective Patient is a very pleasant 56-year-old female with history of myotonic dystrophy is being treated for congestive heart failure exacerbation as well as bilateral pneumonia patient is clinically doing well, close to her baseline. Patient will be discharged tomorrow more antibiotics. May there is no significant change, patient has a lot of questions regarding subcu heparin which was clarified Constitutional: Denied any fatigue denied any fever. Cardio vascular: denied any chest pain, palpitations Gastrointestinal denied any nausea vomiting Pulmonary: Denied any shortness of breath cough Neurologic denied any new focal deficits Objective - Vital Signs Vital signs: Vital Signs Temp 97.7 F 05/22/17 07:00 Pulse 87 05/22/17 07:00 Resp 18 05/22/17 07:00 BP 114/73 05/22/17 07:00 Pulse Ox 93 L 05/22/17 07:00 Intake & Output 05/21/17 05/22/17 05/22/17 19:59 06:59 18:59 Intake Total Output Total Balance Intake: Tube Feeding Output: Urine Other: Voiding Method # Voids - Exam GENERAL: The patient is alert and oriented x3, not in any acute distress. Thin built female muscle atrophy all over the body HEENT: Pupils are round and equally reacting to light. EOMI. No scleral icterus. No conjunctival pallor. Normocephalic, atraumatic. No pharyngeal erythema. No thyromegaly. CARDIOVASCULAR: S1 and S2 present. No murmurs, rubs, or gallops. She does have elevated JVD PULMONARY: Decreased air entry bilateral basilar crackles. ABDOMEN: Soft, nontender, nondistended, normoactive bowel sounds. No palpable organomegaly. MUSCULOSKELETAL: No joint swelling or deformity. EXTREMITIES: No cyanosis, clubbing, or pedal edema. NEUROLOGICAL: Gross neurological examination did not reveal any new focal deficits. Does have chronic weakness from muscular dystrophy SKIN: No rashes. - Labs CBC & Chem 7: 05/22/17 07:11 05/22/17 07:11 Labs: Abnormal Lab Results - Last 24 Hours (Table) 05/21/17 05/22/17 05/22/17 Range/Units 17:55 00:23 06:43 WBC (3.8-10.6) k/uL RBC (3.80-5.40) m/uL Hgb (11.4-16.0) gm/dL MCV (80.0-100.0) fL MCHC (31.0-37.0) g/dL Plt Count (150-450) k/uL Creatinine (0.52-1.04) mg/dL Glucose (74-99) mg/dL POC Glucose (mg/dL) 101 H 74 L 113 H (75-99) mg/dL 05/22/17 05/22/17 Range/Units 07:11 07:11 WBC 14.2 H (3.8-10.6) k/uL RBC 3.40 L (3.80-5.40) m/uL Hgb 10.5 L (11.4-16.0) gm/dL MCV 100.3 H (80.0-100.0) fL MCHC 30.9 L (31.0-37.0) g/dL Plt Count 548 H (150-450) k/uL Creatinine 0.47 L (0.52-1.04) mg/dL Glucose 100 H (74-99) mg/dL POC Glucose (mg/dL) (75-99) mg/dL Assessment and Plan Plan: #1 shortness of breath, hypoxemia: Secondary to possible COPD exacerbation patient was started on IV Lasix and losartan will be reviewed all that on will be discontinued because of hyperkalemia but will check the potassium tomorrow #2 patient is also being treated for pneumonia with Rocephin and azithromycin. #3 muscular dystrophy #4 congestive heart failure chronic systolic dysfunction with acute exacerbation #5 gastroesophageal reflux disease #6 hypertension 7 hypokalemia: Hold off on Aldactone losartan will be continued and will recheck the potassium tomorrow againhim improved potassium will repeat Avapro lites tomorrow patient had mild leukocytosis which is worse compared to yesterday
[2017-05-23] MEDS: HYDROcodone/APAP 10-325MG 1 EACH TAB PO PRN ×5 (01:00→22:37)
[2017-05-23 06:29] LABS: CH 30.6; CHCM 31.2; HCT 35.3 % (34.0-46.0); HGB 10.9 gm/dL (11.4-16.0); MCH 30.6 pg (25.0-35.0); MCV 98.7 fL (80.0-100.0); Mean Platelet Volume 6.7; RBC 3.57 m/uL (3.80-5.40); RDW 13.1 % (11.5-15.5); WBC 15.6 k/uL (3.8-10.6)
[2017-05-23 06:43] LABS: Anion Gap 9 mmol/L; Blood Urea Nitrogen 21 mg/dL (7-17); Calcium 10.4 mg/dL (8.4-10.2); Carbon Dioxide 25 mmol/L (22-30); Chloride 104 mmol/L (98-107); Glucose 102 mg/dL (74-99); Non-African American GFR(MDRD) >60 (>60 ml/min/1.73 sqM); Potassium 4.5 mmol/L (3.5-5.1); Sodium 138 mmol/L (137-145)
--- NOTE | 2017-05-23 07:51 | P.PN ---
Subjective Principal diagnosis: Pneumonia continuing care. This is a continue present 56-year-old white female with history of pneumonia bilaterally. She hasn't underlying history of muscular dystrophy and has significant nutritional mentation secondary to PEG tube. She does not feel as though she can swallow appropriately today. We will continue crush her medications at this time. However, no fever or chills. No significant nausea or vomiting. No significant diarrhea stated. Objective - Vital Signs Vital signs: Vital Signs Temp 98.2 F 05/23/17 02:13 Pulse 76 05/23/17 02:13 Resp 16 05/22/17 20:00 BP 133/83 05/23/17 02:13 Pulse Ox 94 L 05/22/17 19:00 Intake & Output 05/22/17 05/23/17 05/23/17 18:59 06:59 18:59 Intake Total 520 2340 Balance 520 2340 Weight 42.5 kg Intake: IV 520 1600 Sodium Chloride 0.9% 1, 520 1600 000 ml @ 100 mls/hr IV . Q10H [facility] Rx#:[id number] Tube Feeding 680 Other 60 Other: Voiding Method Bedside Commode # Voids 3 - Constitutional General appearance: Present: thin - EENT Eyes: Absent: abnormal pupil - Respiratory Respiratory: bilateral: rhonchi - Cardiovascular Rhythm: regular Heart sounds: normal: S1, S2 - Gastrointestinal General gastrointestinal: Present: soft. Absent: tenderness - Labs CBC & Chem 7: 05/23/17 06:08 05/23/17 06:08 Labs: Abnormal Lab Results - Last 24 Hours (Table) 05/22/17 05/23/17 05/23/17 Range/Units 07:11 06:08 06:08 WBC 15.6 H (3.8-10.6) k/uL RBC 3.57 L (3.80-5.40) m/uL Hgb 10.9 L (11.4-16.0) gm/dL Plt Count 539 H (150-450) k/uL BUN 21 H (7-17) mg/dL Creatinine 0.47 L 0.40 L (0.52-1.04) mg/dL Glucose 100 H 102 H (74-99) mg/dL Calcium 10.4 H (8.4-10.2) mg/dL Assessment and Plan (1) Nonischemic cardiomyopathy Current Visit: Yes Status: Ruled-out Code(s): I42.8 - OTHER CARDIOMYOPATHIES SNOMED Code(s): 58582345 (2) Systolic congestive heart failure Current Visit: Yes Status: Ruled-out Code(s): I50.20 - UNSPECIFIED SYSTOLIC (CONGESTIVE) HEART FAILURE SNOMED Code(s): 786732906 (3) Community acquired pneumonia Current Visit: Yes Status: Acute Code(s): J18.9 - PNEUMONIA, UNSPECIFIED ORGANISM SNOMED Code(s): 263074262 (4) Muscular dystrophy Current Visit: Yes Status: Acute Code(s): G71.0 - MUSCULAR DYSTROPHY SNOMED Code(s): 53974385 Plan: There is incremental improvement. Anticipate DC in the AM Check Followup CXR today.
[2017-05-23] MEDS: ALBUTEROL NEBULIZED 2.5 MG/3 ML INHALATION SCH ×4 (08:43→20:50)
[2017-05-23] MEDS: CARVEDILOL 3.125 MG TAB PO SCH ×2 (09:18→16:22)
[2017-05-23] MEDS: LOSARTAN 25 MG TAB PO SCH (09:19)
[2017-05-23] MEDS: FUROSEMIDE 20 MG TAB PO SCH (09:19)
[2017-05-23] MEDS: AZITHROMYCIN 500 MG TAB PO SCH (09:19)
[2017-05-23] MEDS: HEPARIN SODIUM,PORCINE 5,000 UNIT/ML 1 ML VIAL SQ SCH ×2 (09:19→20:17)
[2017-05-23] MEDS: ASPIRIN 81 MG PO SCH (09:19)
[2017-05-23] MEDS: cefTRIAXone IN SWFI 1,000 MG/10 ML SYRINGE IVP SCH (09:25)
--- NOTE | 2017-05-23 11:36 | XR ---
EXAMINATION TYPE: XR chest 1V portable DATE OF EXAM: 05/23/2017 COMPARISON: Prior chest x-ray 05/20/2017 HISTORY: Follow-up pneumonia TECHNIQUE: Single frontal view of the chest is obtained. FINDINGS: Retrocardiac density with obscured left hemidiaphragm again noted. There is blunting of th e costophrenic angles. PEG tube present in the left upper quadrant. No evident pneumothorax. Cardiac mediastinal silhouette, pulmonary vascularity and rah are stable. IMPRESSION: Lower lobe pneumonia on the left. There may be small effusions. Follow-up to resolution.
[2017-05-23] MEDS: SODIUM CHLORIDE 0.9% 1,000 ML IV SCH ×2 (16:22→23:27)
[2017-05-23] MEDS: ZOLPIDEM 10 MG TAB PO PRN (23:46)
[2017-05-24] MEDS ORDERED: guaiFENesin-DM 100-10MG/5ML 10 ML CUP PO PRN (01:45)
[2017-05-24 01:57] VITALS: TEMP 98
[2017-05-24] MEDS: HYDROcodone/APAP 10-325MG 1 EACH TAB PO PRN ×3 (05:00→14:41)
[2017-05-24] MEDS: ALBUTEROL NEBULIZED 2.5 MG/3 ML INHALATION SCH ×2 (08:25→12:13)
[2017-05-24] MEDS: cefTRIAXone IN SWFI 1,000 MG/10 ML SYRINGE IVP SCH (09:42)
[2017-05-24] MEDS: LOSARTAN 25 MG TAB PO SCH (09:42)
[2017-05-24] MEDS: CARVEDILOL 3.125 MG TAB PO SCH (09:42)
[2017-05-24] MEDS: FUROSEMIDE 20 MG TAB PO SCH (09:42)
[2017-05-24] MEDS: ASPIRIN 81 MG PO SCH (09:42)
[2017-05-24] MEDS: HEPARIN SODIUM,PORCINE 5,000 UNIT/ML 1 ML VIAL SQ SCH (09:43)
[2017-05-24] MEDS: AZITHROMYCIN 500 MG TAB PO SCH (09:43)
[2017-05-24 10:06] VITALS: BP 117/74; RESP 18
[2017-05-24 12:25] VITALS: PULSE 70
--- NOTE | 2017-05-24 13:31 | P.DS ---
Providers Date of admission: 05/14/17 18:25 Expected date of discharge: 05/24/17 Attending physician: Leodan Crespo Consults: 05/14/17 18:26 Consult Physician Urgent Consulting Provider: Josue Burroughs Consult Reason/Comments: Tachycardia, left bundle branch block, CHF Do you want consulting provider notified?: Yes, Notify in am Primary care physician: Leodan Crespo - Discharge Diagnosis(es) (1) Nonischemic cardiomyopathy Current Visit: Yes Status: Ruled-out (2) Systolic congestive heart failure Current Visit: Yes Status: Ruled-out (3) Community acquired pneumonia Current Visit: Yes Status: Acute (4) Muscular dystrophy Current Visit: Yes Status: Acute Hospital Course: This is a discharge summary On a 56-year-old white female with muscular dystrophy who was admitted for recalcitrant pneumonia of bilateral type. Cardiology was consulted during this hospitalization. She did not have significant heart failure at this time. The patient was stabilized with appropriate antibiotic treatment with appropriate medical care. The patient is discharged in guarded but stable condition given her multiple comorbidities patient will follow-up with me in about 7 days. Patient Condition at Discharge: Serious Plan - Discharge Summary New Discharge Prescriptions: New Cefuroxime Axetil [Ceftin] 500 mg PO BID #14 tab Furosemide [Lasix] 20 mg PO DAILY #14 tab Losartan [Cozaar] 12.5 mg PO DAILY #30 tab Continue Aspirin 81 mg PO DAILY Melatonin 3 mg PO HS PRN PRN Reason: insomnia Hydrocodone/Acetaminophen [[place] 7.5-325] 1 tab PO TID PRN PRN Reason: Pain Zolpidem [Ambien] 10 mg PO HS PRN PRN Reason: Insomnia Glycopyrrolate [Robinul] 1 mg PO BID Esomeprazole Magnesium [NexIUM] 40 mg PO DAILY Spironolactone [Aldactone] 25 mg PO DAILY Calcium Carbonate/Vitamin D3 [[place]-Carl[place] 500-Vit D3 200 Caplet] 1 tab PO DAILY Erythromycin Ophth Oint [Romycin Ophth Oint] 1 applic BOTH EYES HS Carvedilol [Coreg] 12.5 mg PO DAILY Artificial Tears-Hypromellose [Artificial Tear Drops] 1 drops BOTH EYES TID PRN PRN Reason: Dry Eye(S) Azithromycin [Zithromax] See Taper PO DAILY Discharge Medication List Aspirin 81 mg PO DAILY 11/20/15 [History] Calcium Carbonate/Vitamin D3 [Os-Carl[place] 500-Vit D3 200 Caplet] 1 tab PO DAILY 11/19 [History] Esomeprazole Magnesium [NexIUM] 40 mg PO DAILY 11/20/15 [History] Glycopyrrolate [Robinul] 1 mg PO BID 11/20/15 [History] Hydrocodone/Acetaminophen [[place] 7.5-325] 1 tab PO TID PRN 11/20/15 [History] Melatonin 3 mg PO HS PRN 11/20/15 [History] Spironolactone [Aldactone] 25 mg PO DAILY 11/20/15 [History] Zolpidem [Ambien] 10 mg PO HS PRN 11/20/15 [History] Artificial Tears-Hypromellose [Artificial Tear Drops] 1 drops BOTH EYES TID PRN 05/14/17 [History] Azithromycin [Zithromax] See Taper PO DAILY 05/14/17 [History] Carvedilol [Coreg] 12.5 mg PO DAILY 05/14/17 [History] Erythromycin Ophth Oint [Romycin Ophth Oint] 1 applic BOTH EYES HS 05/14/17 [ History] Cefuroxime Axetil [Ceftin] 500 mg PO BID #14 tab 05/24/17 [Rx] Furosemide [Lasix] 20 mg PO DAILY #14 tab 05/24/17 [Rx] Losartan [Cozaar] 12.5 mg PO DAILY #30 tab 05/24/17 [Rx] Follow up Appointment(s)/Referral(s): Leodan Crespo MD [Primary Care Provider] - 1-2 days Chet Le MD [STAFF PHYSICIAN] - 1 Week (Spoke to senior receptionist Christina. Office will call back with appointment time.) Activity/Diet/Wound Care/Special Instructions: [facility] [phone]
== END 2017-05-24 15:20 | disposition home health service (06) | DRG 139 ==
LOC: EC 15:30 → 6SEL 18:25 → 3SUR 05-20 02:04
PROVIDERS: ADMIT Family Medicine; ATTEND Family Medicine
DX: J18.9 Pneumonia, unspecified organism (principal); I50.43 Acute on chronic combined systolic (congestive) and diastolic (congestive) heart failure; G71.0 Muscular dystrophy; I42.8 Other cardiomyopathies; J44.0 Chronic obstructive pulmonary disease with (acute) lower respiratory infection; R13.10 Dysphagia, unspecified; I11.0 Hypertensive heart disease with heart failure; I44.7 Left bundle-branch block, unspecified; J06.9 Acute upper respiratory infection, unspecified; J44.1 Chronic obstructive pulmonary disease with (acute) exacerbation; K21.9 Gastro-esophageal reflux disease without esophagitis; K76.1 Chronic passive congestion of liver; K80.20 Calculus of gallbladder without cholecystitis without obstruction; R09.02 Hypoxemia; Z79.82 Long term (current) use of aspirin; Z79.899 Other long term (current) drug therapy; Z82.49 Family history of ischemic heart disease and other diseases of the circulatory system; E87.5 Hyperkalemia
CPT/HCPCS: 36415; 71010; 71020; 76705; 80048; 80053; 80202; 81003; 83605; 83735; 83880; 84484; 85025; 85027; 85610; 85730; 87040; 87086; 93005; 93306; 94640; 96361; 96365; 99291

== ENCOUNTER → 2017-06-08 | Outpatient (CLI) | payer OTHER | END | disposition home or self-care (01) | LOC: LABWHC1 11:29 | PROVIDERS: ATTEND Internal Medicine Cardiovascular Disease | DX: I50.9 Heart failure, unspecified (principal) | CPT/HCPCS: 36415; 83880 ==

== ENCOUNTER → 2017-07-04 | Outpatient (CLI) | payer OTHER ==
[2017-07-04 15:48] LABS: Anion Gap 9 mmol/L; Blood Urea Nitrogen 58 mg/dL (7-17); Calcium 10.5 mg/dL (8.4-10.2); Carbon Dioxide 34 mmol/L (22-30); Chloride 97 mmol/L (98-107); Glucose 101 mg/dL (74-99); Non-African American GFR(MDRD) >60 (>60 ml/min/1.73 sqM); Potassium 4.9 mmol/L (3.5-5.1); Sodium 140 mmol/L (137-145)
== END | disposition home or self-care (01) ==
LOC: LABWHC1 14:58
PROVIDERS: ATTEND Internal Medicine Cardiovascular Disease
DX: I10 Essential (primary) hypertension (principal)
CPT/HCPCS: 36415; 80048

== ENCOUNTER → 2017-08-10 | Outpatient (CLI) | payer OTHER ==
--- NOTE | 2017-08-12 09:30 | MM ---
Reason for exam: screening (asymptomatic). Last mammogram was performed 1 year and 3 months ago. History: Patient is postmenopausal and is nulliparous. Physical Findings: A clinical breast exam by your physician is recommended on an annual basis and results should be correlated with mammographic findings. MG Screening Mammo w CAD Bilateral CC and MLO view(s) were taken. Prior study comparison: May 20, 2016, bilateral MG screening mammo w CAD. May 05, 2015, bilateral MG screening mammo w CAD. The breast tissue is extremely dense which could obscure a lesion on mammography. No significant changes when compared with prior studies. ASSESSMENT: Benign, BI-RAD 2 RECOMMENDATION: Routine screening mammogram of both breasts in 1 year.
== END | disposition home or self-care (01) ==
LOC: RADMAMWWP 14:20
PROVIDERS: ATTEND Family Medicine
DX: Z12.31 Encounter for screening mammogram for malignant neoplasm of breast (principal)
CPT/HCPCS: 77067

== ENCOUNTER 2017-11-12 21:45 | Observation (INO) | payer OTHER ==
[2017-11-12] MEDS ORDERED: ASPIRIN 81 MG PO STA (22:55)
[2017-11-12] MEDS ORDERED: SODIUM CHLORIDE 0.9% 1,000 ML IV STA (22:55)
[2017-11-12] MEDS ORDERED: NITROGLYCERIN OINT 1 INCH/GM PACKET TOPICAL STA (22:55)
[2017-11-12] MEDS ORDERED: ONDANSETRON 4 MG/2 ML VIAL IVP STA (22:55)
[2017-11-12] MEDS ORDERED: MORPHINE SULFATE 4 MG/0.8 ML SYRINGE (INJ) IVP STA (22:55)
[2017-11-12 23:12] LABS: Basophils # (A) 0.1 k/uL (0-0.2); Basophils % (A) 0 %; Eosinophils # (A) 0.2 k/uL (0-0.7); Eosinophils % (A) 1 %; HCT 33.4 % (34.0-46.0); HGB 11.3 gm/dL (11.4-16.0); Lymphocytes # (A) 1.7 k/uL (1.0-4.8); Lymphocytes % (A) 9 %; MCH 30.8 pg (25.0-35.0); MCHC 33.7 g/dL (31.0-37.0); MCV 91.3 fL (80.0-100.0); Mean Platelet Volume 6.6; Monocytes % (A) 5 %; Neutrophils # (A) 16.3 k/uL (1.3-7.7); Neutrophils % (A) 84 %; Platelet Count 402 k/uL (150-450); RBC 3.66 m/uL (3.80-5.40); RDW 12.5 % (11.5-15.5); WBC 19.4 k/uL (3.8-10.6)
[2017-11-12 23:28] LABS: ALT 43 U/L (9-52); AST 58 U/L (14-36); Albumin 4.2 g/dL (3.5-5.0); Alkaline Phosphatase 109 U/L (38-126); Anion Gap 11 mmol/L; Blood Urea Nitrogen 35 mg/dL (7-17); Calcium 10.4 mg/dL (8.4-10.2); Carbon Dioxide 32 mmol/L (22-30); Chloride 97 mmol/L (98-107); Glucose 99 mg/dL (74-99); Magnesium 2.5 mg/dL (1.6-2.3); Potassium 4.3 mmol/L (3.5-5.1); Sodium 140 mmol/L (137-145); Total Bilirubin 0.4 mg/dL (0.2-1.3); Total Protein 7.6 g/dL (6.3-8.2)
[2017-11-12 23:30] LABS: Creatine Kinase 37 U/L (30-135)
[2017-11-12 23:42] LABS: D-Dimer 0.27 mg/L FEU (<0.60); Partial Thromboplastin Time 24.3 sec (22.0-30.0)
[2017-11-12 23:43] LABS: Troponin I <0.012 ng/mL (0.000-0.034)
--- NOTE | 2017-11-12 23:55 | XR ---
EXAMINATION TYPE: XR chest 2V DATE OF EXAM: 11/12/2017 COMPARISON: 05/23/2017 HISTORY: Cough and chest pain TECHNIQUE: Frontal and lateral views of the chest are obtained. FINDINGS: Heart and mediastinum are normal. There appears to be some infiltrate behind the heart in the left lower lobe. The right lung is clear. There is no heart failure. Bony thorax is intact. Pulmo nary vascularity is normal. IMPRESSION: There is some chronic left lower lobe infiltrate that appears improved compared to old e xam. There is probably small left pleural effusion.
--- NOTE | 2017-11-13 01:23 | ED ---
Chest Pain HPI - General Chief Complaint: Chest Pain Stated Complaint: Cough Time Seen by Provider: 11/12/17 22:32 Source: patient Mode of arrival: wheelchair Limitations: no limitations - History of Present Illness Initial Comments: 57 years O female with history of muscular dystrophy had a chest pain for a few hours now she also had a chest pain yesterday she is here with her caregiver complaining about the chest pain chest pain gets worse with a deep breaths also coughing and is hard to get up the phlegm because of muscular dystrophy. Denies any abdominal pain no nausea no vomiting no cold sweats no frequency urgency dysuria denies any new symptoms of TIA or CVA - Related Data Home Medications Medication Instructions Recorded Confirmed Aspirin 81 mg PO DAILY 11/20/15 05/14/17 Calcium Carbonate/Vitamin D3 1 tab PO DAILY 11/20/15 05/14/17 [[place] 500-Vit D3 200 Caplet] Esomeprazole Magnesium [NexIUM] 40 mg PO DAILY 11/20/15 05/14/17 Glycopyrrolate [Robinul] 1 mg PO BID 11/20/15 05/14/17 Hydrocodone/Acetaminophen [[place] 1 tab PO TID PRN 11/20/15 05/14/17 7.5-325] Melatonin 3 mg PO HS PRN 11/20/15 05/14/17 Spironolactone [Aldactone] 25 mg PO DAILY 11/20/15 05/14/17 Zolpidem [Ambien] 10 mg PO HS PRN 11/20/15 05/14/17 Artificial Tears-Hypromellose 1 drops BOTH EYES TID PRN 05/14/17 05/14/17 [Artificial Tear Drops] Azithromycin [Zithromax] See Taper PO DAILY 05/14/17 05/14/17 Carvedilol [Coreg] 12.5 mg PO DAILY 05/14/17 05/14/17 Erythromycin Ophth Oint [Romycin 1 applic BOTH EYES HS 05/14/17 05/14/17 Ophth Oint] Previous Rx's Medication Instructions Recorded Cefuroxime Axetil [Ceftin] 500 mg PO BID #14 tab 05/24/17 Furosemide [Lasix] 20 mg PO DAILY #14 tab 05/24/17 Losartan [Cozaar] 12.5 mg PO DAILY #30 tab 05/24/17 Allergies Allergy/AdvReac Type Severity Reaction Status Date / Time No Known Allergies Allergy Verified 11/12/17 22:10 Review of Systems ROS Statement: Those systems with pertinent positive or pertinent negative responses have been documented in the HPI. ROS Other: All systems not noted in ROS Statement are negative. EKG Findings - EKG Comments: EKG Findings:: ALLERGIES sinus rhythm with a first-degree AV block, ventricular rate is 67 MS interval is 2 through 12 QRS duration is 140 QT/QTc is 382/43 review of this EKG reveals a left bundle branch block today's EKG was compared with EKG from 05/16/2017 she had a left bundle branch block back then Past Medical History Past Medical History: Heart Failure, GERD/Reflux Additional Past Medical History / Comment(s): myotonic muscular dystrophy, peg tube History of Any Multi-Drug Resistant Organisms: None Reported Additional Past Surgical History / Comment(s): peg tube, cataract surg./ EYE LIFT R/T THEM NOT CLOSING PROPERLY. Past Anesthesia/Blood Transfusion Reactions: Postoperative Nausea & Vomiting ( PONV) Additional Past Anesthesia/Blood Transfusion Reaction / Comment(s): slow to wake up Past Psychological History: No Psychological Hx Reported Smoking Status: Never smoker Past Alcohol Use History: None Reported Past Drug Use History: None Reported - Past Family History Father Family Medical History: Congestive Heart Failure (CHF) General Exam - General Exam Comments Initial Comments: General: The patient is awake,, she is very weak pale and tired l. Skin: Skin is warm and dry and no rashes or lesions are noted. Eye: Pupils are equal, round and reactive to light, extra-ocular movements are intact; there is normal conjunctiva bilaterally. Ears, nose, mouth and throat: There are moist mucous membranes and no oral lesions. Neck: The neck is supple, there is no tenderness no signs of any meningitis Cardiovascular: There is a regular rate and rhythm. No murmur, rub or gallop is appreciated. Respiratory: To auscultation bilateral, decreased breath sounds at the bases Gastrointestinal: Soft, non-distended, non-tender abdomen without masses or organomegaly noted. There is no rebound or guarding present. Bowel sounds are unremarkable. Back: There is no tenderness to palpation in the midline. There is no obvious deformity. Musculoskeletal: Normal ROM, no tenderness, There is no pedal edema. There is no calf tenderness or swelling. No cords were appreciated. Neurological: CN II-XII intact, Cranial nerves III through XII are intact. There are no obvious motor or sensory deficits. Coordination appears grossly intact. Speech is normal. Psychiatric: Cooperative, appropriate mood & affect, normal judgment. Limitations: no limitations Course Vital Signs 11/12/17 11/13/17 22:10 00:42 Temperature 98.6 F Pulse Rate 79 57 L Respiratory 20 16 Rate Blood Pressure 105/61 100/58 O2 Sat by Pulse 93 L 96 Oximetry Assessment noticed white count is elevated basic 20 with a left shift d-dimer is negative troponin is negative EKG was unremarkable has a left bundle branch block and she has a history of left bundle branch block chest x-ray shows chronic pneumonia and I suspect she has a pneumonia and now considering leukocytosis and chest pain him a she be admitted to the hospital for the 3 sets of cardiac markers cardiology be consulted she be on him IV antibiotics, this was discussed with the patient patient agrees with that, considering leukocytosis and will put her on some broad-spectrum antibiotics covering pneumonia as well as sepsis Disposition Clinical Impression: Chest pain, Pneumonia, Sepsis Disposition: ADMITTED IP TO THIS HOSP Condition: Good Referrals: Leodan Crespo MD [Primary Care Provider] - 1-2 days
[2017-11-13] MEDS ORDERED: PIPERACILLIN-TAZOBACTAM 3.375 GM in DEXTROSE/WATER 1 50ML.BAG IVPB STA (01:27)
[2017-11-13] MEDS ORDERED: NALOXONE 0.4 MG/ML 1 ML VIAL IV PRN (01:31)
[2017-11-13] MEDS ORDERED: MORPHINE SULFATE 4 MG/0.8 ML SYRINGE (INJ) IV PRN (01:31)
[2017-11-13] MEDS ORDERED: ONDANSETRON 4 MG/2 ML VIAL IVP PRN (01:31)
[2017-11-13] MEDS ORDERED: ACETAMINOPHEN TAB 325 MG TAB PO PRN (01:31)
[2017-11-13] MEDS ORDERED: NITROGLYCERIN SL TABS 0.4 MG TAB SUBLINGUAL PRN (01:37)
[2017-11-13] MEDS ORDERED: MORPHINE SULFATE 4 MG/0.8 ML SYRINGE (INJ) IVP PRN (01:37)
[2017-11-13] MEDS ORDERED: ZOLPIDEM 10 MG TAB PO PRN (01:47)
[2017-11-13] MEDS ORDERED: ARTIFICIAL TEARS-HYPROMELLOSE DROPS 15 ML BTL BOTH EYES PRN (01:47)
[2017-11-13] MEDS ORDERED: HYDROcodone/APAP 7.5-325MG 1 EACH TAB PO PRN (01:47)
[2017-11-13 02:10] LABS: Appearance,Urine Clear (Clear); Bilirubin,Urine Negative (Negative); Blood,Urine Negative (Negative); Color,Urine Yellow; Glucose,Urine (UA) Negative (Negative); Ketones,Urine Negative (Negative); Leukocyte Esterase,Urine Large (Negative); Nitrite,Urine Negative (Negative); Protein,Urine Negative (Negative); RBC,Urine 1 /hpf (0-5); Specific Gravity,Urine 1.014 (1.001-1.035); Squamous Epithelial Cell,Urine 1 /hpf (0-4); Urobilinogen,Urine <2.0 mg/dL (<2.0); WBC,Urine 22 /hpf (0-5)
[2017-11-13 03:45] VITALS: BMI 18.8
[2017-11-13] MEDS ORDERED: guaiFENesin SYRUP 100MG/5ML 200 MG/10 ML CUP PO PRN (05:15)
[2017-11-13] MEDS: MELATONIN 3 MG TABLET PO PRN (05:31)
[2017-11-13] MEDS: guaiFENesin SYRUP 100MG/5ML 200 MG/10 ML CUP PEG/G-TUBE PRN (05:35)
[2017-11-13] MEDS ORDERED: POLYETHYLENE GLYCOL 3350 17 GM POWD.PACK PO SCH (08:00)
[2017-11-13] MEDS: PIPERACILLIN-TAZOBACTAM 3.375 GM in DEXTROSE/WATER 1 50ML.BAG IVPB SCH ×2 (08:59→16:57)
[2017-11-13] MEDS ORDERED: PANTOPRAZOLE 40 MG/10 ML VIAL IV SCH (09:00)
--- NOTE | 2017-11-13 09:34 | P.CRDCN ---
History of Present Illness Consult date: 11/13/17 Requesting physician: Heidy Ayala Consult reason: chest pain Chief complaint: Chest pain History of present illness: This is a 57-year-old female with history of myotonic muscular dystrophy, GERD, history was obtained from the ex- who is also her caregiver. He said that in the past she was known to have a weak heart muscle which apparently on recent echoes has recovered to normal. She has no history of hyperlipidemia, history of hypertension, she was in the hospital in April with bilateral pneumonia, according to the her muscular dystrophy has worsened significantly since that time, she is unable to get up out of bed on her own. She presents to the hospital on this occasion with symptoms of chest tightness which apparently the patient told her ex- was an 8 on a pain scale. At the time of my examination this morning, patient is sleeping, very difficult to arouse, she apparently just fell asleep a couple of hours ago. EKG on arrival here showed a normal sinus rhythm with a left bundle-branch block pattern and nonspecific ST-T wave changes. When reviewing prior EKGs, it appears that the patient had these changes in the past as well. Chest x-ray reveals some chronic left lower lobe infiltrate that appears improved from prior exam, there is a small left pleural effusion noted as well. Laboratory data was reviewed, white blood cell count 19.4., Hemoglobin 11.3, platelet count 402, d-dimer 0.2. Sodium 140, potassium 4.3, BUN 35, creatinine 0.5. Magnesium level II.5, calcium 10.4, AST 58, ALT 43. Troponin 0.012, 2. At the time of my examination this morning, as previously mentioned patient is sleeping. Past Medical History Past Medical History: Heart Failure, GERD/Reflux, Musculoskeletal Disorder Additional Past Medical History / Comment(s): myotonic muscular dystrophy, peg tube,dysphagia, hx of cervical fx several years ago due to injury - chronic neck pain History of Any Multi-Drug Resistant Organisms: None Reported Additional Past Surgical History / Comment(s): peg tubes - most recent placed , cataract surg./ EYE LIFT R/T THEM NOT CLOSING PROPERLY, trach 1997 - since removed Past Anesthesia/Blood Transfusion Reactions: Postoperative Nausea & Vomiting ( PONV) Additional Past Anesthesia/Blood Transfusion Reaction / Comment(s): slow to wake up Past Psychological History: No Psychological Hx Reported Smoking Status: Never smoker Past Alcohol Use History: None Reported Past Drug Use History: None Reported - Past Family History Father Family Medical History: Congestive Heart Failure (CHF) Medications and Allergies Home Medications Medication Instructions Recorded Confirmed Type Aspirin 81 mg PO DAILY 11/20/15 11/13/17 History Glycopyrrolate [Robinul] 1 mg PO TID 11/20/15 11/13/17 History Melatonin 3 mg PO HS PRN 11/20/15 11/13/17 History Spironolactone [Aldactone] 25 mg PO DAILY 11/20/15 11/13/17 History Carvedilol [Coreg] 12.5 mg PO BID 05/14/17 11/13/17 History HYDROcodone/APAP 10-325MG [[place] 1 tab PO Q6H PRN 11/13/17 11/13/17 History 10-325] Losartan [Cozaar] 25 mg PO DAILY 11/13/17 11/13/17 History Omeprazole [PriLOSEC] 40 mg PO DAILY 11/13/17 11/13/17 History Polyethylene Glycol 3350 [Miralax] 17 gm PO Q3D 11/13/17 11/13/17 History Temazepam 30 mg PO HS 11/13/17 11/13/17 History diphenhydrAMINE [Benadryl] 25 mg PO QID PRN 11/13/17 11/13/17 History Allergies Allergy/AdvReac Type Severity Reaction Status Date / Time No Known Allergies Allergy Verified 11/12/17 22:10 Physical Exam Vitals: Vital Signs Temp Pulse Pulse Pulse Resp BP BP 11/13/17 08:00 98.6 F 65 14 104/54 11/13/17 04:00 57 L 18 11/13/17 02:59 98.0 F 85 18 116/61 11/13/17 02:10 97.6 F 11/13/17 02:06 61 16 148/71 11/13/17 00:42 57 L 16 100/58 11/12/17 22:10 98.6 F 79 20 105/61 Pulse Ox 11/13/17 08:00 96 11/13/17 04:00 11/13/17 02:59 96 11/13/17 02:10 11/13/17 02:06 99 04/29/18 00:42 96 11/12/17 22:10 93 L Intake and Output 11/12/17 11/13/17 11/13/17 22:59 06:59 14:59 Other: Voiding Method Bedside Commode Weight 45.359 kg 45.1 kg PHYSICAL EXAMINATION: HEENT: Head is atraumatic, normocephalic. Pupils equal, round. Neck is supple. There is no elevated jugular venous pressure. HEART EXAMINATION: Heart S1 and S2 systolic ejection murmur is heard. CHEST EXAMINATION: Lungs are clear to auscultation and precussion. No chest wall tenderness is noted on palpation or with deep breathing. ABDOMEN: Soft, nontender. Bowel sounds are heard. No organomegaly noted. EXTREMITIES: 2+ peripheral pulses with no evidence of peripheral edema and no calf tenderness noted. NEUROLOGIC [patient is sleepy. Oriented 3. Results 11/12/17 22:57 11/12/17 22:57 Cardiac Enzymes 11/12/17 11/12/17 11/13/17 Range/Units 22:57 22:57 03:31 AST 58 H (14-36) U/L CK-MB (CK-2) 1.0 (0.0-2.4) ng/mL Troponin I <0.012 <0.012 (0.000-0.034) ng/mL Coagulation 11/12/17 Range/Units 22:57 PT 10.0 (9.0-12.0) sec APTT 24.3 (22.0-30.0) sec CBC 11/12/17 Range/Units 22:57 WBC 19.4 H (3.8-10.6) k/uL RBC 3.66 L (3.80-5.40) m/uL Hgb 11.3 L (11.4-16.0) gm/dL Hct 33.4 L (34.0-46.0) % Plt Count 402 (150-450) k/uL Comprehensive Metabolic Panel 11/12/17 Range/Units 22:57 Sodium 140 (137-145) mmol/L Potassium 4.3 (3.5-5.1) mmol/L Chloride 97 L (98-107) mmol/L Carbon Dioxide 32 H (22-30) mmol/L BUN 35 H (7-17) mg/dL Creatinine 0.55 (0.52-1.04) mg/dL Glucose 99 (74-99) mg/dL Calcium 10.4 H (8.4-10.2) mg/dL AST 58 H (14-36) U/L ALT 43 (9-52) U/L Alkaline Phosphatase 109 (38-126) U/L Total Protein 7.6 (6.3-8.2) g/dL Albumin 4.2 (3.5-5.0) g/dL Current Medications Generic Name Dose Route Start Last Admin Trade Name Freq PRN Reason Stop Dose Admin Acetaminophen 650 mg 11/13/17 01:31 Tylenol Tab PO Q6HR PRN Mild Pain or Fever > 100.5 Hydrocodone Bitart/Acetaminophen 1 each 11/13/17 01:47 [place] 7.5-325 PO TID PRN Pain Artificial Tears 1 drops 11/13/17 01:47 Artificial Tear Drops BOTH EYES TID PRN Dry Eye(s) Aspirin 325 mg 11/14/17 09:00 Aspirin PO DAILY [facility] Calcium Carbonate 1 each 11/13/17 09:00 [place]scal 500+D PO DAILY [facility] Carvedilol 12.5 mg 11/13/17 09:00 Coreg PO DAILY [facility] Erythromycin 1 applic 11/13/17 21:00 Romycin Ophth Oint BOTH EYES HS [facility] Furosemide 20 mg 11/13/17 09:00 Lasix PO DAILY [facility] Glycopyrrolate 1 mg 11/13/17 09:00 Robinul PO BID [facility] Guaifenesin 200 mg 11/13/17 05:22 11/13/17 05:35 Robitussin PEG/G-TUBE 200 mg Q6H PRN Administration Cough Piperacillin/Tazobactam/ 50 mls @ 12.5 mls/hr 11/13/17 08:00 11/13/17 08:59 Dextrose 3.375 gm/ IV Solution IVPB 12.5 mls/hr Q8HR [facility] Administration Sodium Chloride 1,000 mls @ 75 mls/hr 11/13/17 02:00 Saline 0.9% IV .[id number] [facility] Losartan Potassium 12.5 mg 11/13/17 09:00 Cozaar PO DAILY [facility] Melatonin 3 mg 11/13/17 01:47 11/13/17 05:31 Melatonin PO 3 mg HS PRN Administration insomnia Morphine Sulfate 2 mg 11/13/17 01:31 11/13/17 03:16 Morphine Sulfate (Inj) IV 2 mg Q4HR PRN Administration Severe Pain Morphine Sulfate 2 mg 11/13/17 01:37 Morphine Sulfate (Inj) IVP Q5M PRN Chest Pain Naloxone HCl 0.2 mg 11/13/17 01:31 Narcan IV Q2M PRN Opioid Reversal Nitroglycerin 0.4 mg 11/13/17 01:37 Nitrostat SUBLINGUAL Q5M PRN Chest Pain Ondansetron HCl 4 mg 11/13/17 01:31 Zofran IVP Q8HR PRN Nausea And Vomiting Pantoprazole Sodium 40 mg 11/13/17 09:00 Protonix IV DAILY [facility] Pantoprazole Sodium 40 mg 11/13/17 09:00 Protonix PO DAILY [facility] Polyethylene Glycol 17 gm 11/13/17 08:00 Miralax PO Q3D [facility] Spironolactone 25 mg 11/13/17 09:00 Aldactone PO DAILY [facility] Temazepam 30 mg 11/13/17 21:00 Restoril PO HS [facility] Intake and Output 11/12/17 11/13/17 11/13/17 22:59 06:59 14:59 Other: Voiding Method Bedside Commode Weight 45.359 kg 45.1 kg 11/12/17 22:57 11/12/17 22:57 EKG Interpretations (text) EKG shows normal sinus rhythm with left bundle branch block pattern and nonspecific ST-T wave changes Assessment and Plan Plan: Assessment and plan #1 chest pain, atypical for acute coronary syndrome. Troponins negative 2. EKG shows normal sinus rhythm with left bundle branch block pattern and nonspecific ST-T wave changes, similar to prior EKGs. #2 mild chronic muscular dystrophy, advanced #3 hypertension #4 history of prior nonischemic cardiomyopathy, most recent echo showed normal LV function this was performed in April 2017 #5 GERD #6 elevated white blood cell count, patient had a bilateral pneumonia in April , chest x-ray shows infiltrate however improved from prior. Plan Patient's most recent echocardiogram with Doppler study was performed in April which revealed a normal left ventricular systolic function. Patient has a significant heart murmur, according to the ex- he's not been told in the past that she had a heart murmur, we will repeat her echocardiogram with Doppler study. Decrease aspirin 81 mg daily, continue Coreg, Lasix, losartan, and Aldactone. Patient is currently receiving IV fluids at 75 mL an hour. Further recommendations to follow. DNP note has been reviewed, I agree with a documented findings and plan of care. Patient was seen and examined.
[2017-11-13] MEDS: PANTOPRAZOLE 40 MG TABLET PO SCH (11:19)
[2017-11-13] MEDS: FUROSEMIDE 20 MG TAB PO SCH (11:19)
[2017-11-13] MEDS: CARVEDILOL 12.5 MG TAB PO SCH (11:19)
[2017-11-13] MEDS: SPIRONOLACTONE 25 MG TAB PO SCH (11:19)
[2017-11-13] MEDS: CALCIUM CARB-VIT D 500MG-200UN 1 EACH TAB PO SCH (11:20)
[2017-11-13] MEDS: LOSARTAN 25 MG TAB PO SCH (11:20)
[2017-11-13] MEDS: GLYCOPYRROLATE 1 MG TAB PO SCH ×2 (11:20→20:58)
[2017-11-13] MEDS ORDERED: HYDROcodone/APAP 5-325MG 1 EACH TAB PO STA (16:22)
[2017-11-13] MEDS: SODIUM CHLORIDE 0.9% 1,000 ML IV SCH ×2 (16:45→18:57)
[2017-11-13] MEDS: ERYTHROMYCIN 5 MG/GM OPHTH OINT 3.5 GM TUBE BOTH EYES SCH (20:58)
[2017-11-13] MEDS: TEMAZEPAM 30 MG CAP PO SCH (20:58)
[2017-11-13] MEDS: HYDROcodone/APAP 10-325MG 1 EACH TAB PO PRN (22:48)
[2017-11-13 23:35] LABS: Magnesium 2.4 mg/dL (1.6-2.3); Potassium 4.1 mmol/L (3.5-5.1)
[2017-11-14] MEDS: LEVOFLOXACIN 750MG-D5W PMX 750 MG in DEXTROSE/WATER 1 150ML.BAG IVPB SCH (00:52)
[2017-11-14] MEDS: PIPERACILLIN-TAZOBACTAM 3.375 GM in DEXTROSE/WATER 1 50ML.BAG IVPB SCH ×4 (02:48→23:21)
[2017-11-14] MEDS: HYDROcodone/APAP 10-325MG 1 EACH TAB PO PRN ×5 (06:15→23:51)
[2017-11-14 08:01] LABS: Basophils % (A) 0 %; Eosinophils # (A) 0.1 k/uL (0-0.7); Eosinophils % (A) 0 %; HCT 31.5 % (34.0-46.0); HGB 10.1 gm/dL (11.4-16.0); Lymphocytes # (A) 0.6 k/uL (1.0-4.8); Lymphocytes % (A) 3 %; MCH 30.8 pg (25.0-35.0); MCHC 32.1 g/dL (31.0-37.0); MCV 95.8 fL (80.0-100.0); Mean Platelet Volume 6.7; Monocytes # (A) 0.7 k/uL (0-1.0); Monocytes % (A) 4 %; Neutrophils # (A) 19.1 k/uL (1.3-7.7); Neutrophils % (A) 92 %; Platelet Count 309 k/uL (150-450); RBC 3.28 m/uL (3.80-5.40); RDW 12.5 % (11.5-15.5); WBC 20.8 k/uL (3.8-10.6)
[2017-11-14 08:22] LABS: ALT 54 U/L (9-52); AST 63 U/L (14-36); Albumin 3.2 g/dL (3.5-5.0); Alkaline Phosphatase 149 U/L (38-126); Anion Gap 12 mmol/L; Blood Urea Nitrogen 28 mg/dL (7-17); Calcium 9.3 mg/dL (8.4-10.2); Carbon Dioxide 28 mmol/L (22-30); Chloride 106 mmol/L (98-107); Cholesterol 131 mg/dL (<200); Glucose 111 mg/dL (74-99); HDL Cholesterol 44 mg/dL (40-60); LDL Cholesterol,Calculated 67 mg/dL (0-99); Potassium 3.7 mmol/L (3.5-5.1); Sodium 146 mmol/L (137-145); Total Bilirubin 0.3 mg/dL (0.2-1.3); Total Protein 5.9 g/dL (6.3-8.2); Triglycerides 98 mg/dL (<150)
--- NOTE | 2017-11-14 08:44 | P.HPIM ---
History of Present Illness H&P Date: 11/14/17 Chief Complaint: Chest pressure. This is a history of physical 57-year-old white female who has history of bilateral pneumonia who was seen Tuesday in the emergency room and is now continued significant chest pressure. The patient's asplenic this time as requested but because of the severity of his symptomatology was appropriately admitted. Troponins so far been negative. The patient is quite tired today. She hasn't underlying history of being tube fed dependent. Appetite however has been poor over the last several days. There is been mild cough and no overt fever or chills. She is a nonsmoker. No second smoke is noted. The patient's states OTC medication has been ineffective for symptom relief. She does not complain of any type of chest pain at this time however. Review of Systems Constitutional: Denies chills, Denies fever Eyes: denies blurred vision, denies pain Ears, nose, mouth and throat: Denies headache, Denies sore throat Cardiovascular: Reports chest pain Respiratory: Reports cough Gastrointestinal: Denies abdominal pain, Denies diarrhea, Denies nausea, Denies vomiting Genitourinary: Denies dysuria, Denies hematuria Musculoskeletal: Denies myalgias Integumentary: Denies pruritus, Denies rash Psychiatric: Denies anxiety, Denies depression Past Medical History Past Medical History: Heart Failure, GERD/Reflux, Musculoskeletal Disorder Additional Past Medical History / Comment(s): myotonic muscular dystrophy, peg tube,dysphagia, hx of cervical fx several years ago due to injury - chronic neck pain History of Any Multi-Drug Resistant Organisms: None Reported Additional Past Surgical History / Comment(s): peg tubes - most recent placed , cataract surg./ EYE LIFT R/T THEM NOT CLOSING PROPERLY, trach 1997 - since removed Past Anesthesia/Blood Transfusion Reactions: Postoperative Nausea & Vomiting ( PONV) Additional Past Anesthesia/Blood Transfusion Reaction / Comment(s): slow to wake up Past Psychological History: No Psychological Hx Reported Smoking Status: Never smoker Past Alcohol Use History: None Reported Past Drug Use History: None Reported - Past Family History Father Family Medical History: Congestive Heart Failure (CHF) Medications and Allergies Home Medications Medication Instructions Recorded Confirmed Type Aspirin 81 mg PO DAILY 11/20/15 11/13/17 History Glycopyrrolate [Robinul] 1 mg PO TID 11/20/15 11/13/17 History Melatonin 3 mg PO HS PRN 11/20/15 11/13/17 History Spironolactone [Aldactone] 25 mg PO DAILY 11/20/15 11/13/17 History Carvedilol [Coreg] 12.5 mg PO BID 05/14/17 11/13/17 History HYDROcodone/APAP 10-325MG [[place] 1 tab PO Q6H PRN 11/13/17 11/13/17 History 10-325] Losartan [Cozaar] 25 mg PO DAILY 11/13/17 11/13/17 History Omeprazole [PriLOSEC] 40 mg PO DAILY 11/13/17 11/13/17 History Polyethylene Glycol 3350 [Miralax] 17 gm PO Q3D 11/13/17 11/13/17 History Temazepam 30 mg PO HS 11/13/17 11/13/17 History diphenhydrAMINE [Benadryl] 25 mg PO Q6H PRN 11/13/17 11/13/17 History Allergies Allergy/AdvReac Type Severity Reaction Status Date / Time No Known Allergies Allergy Verified 11/13/17 12:40 Physical Exam Vitals: Vital Signs Temp Pulse Resp BP Pulse Ox 11/14/17 08:00 98.1 F 75 18 113/53 95 11/14/17 04:00 97.9 F 82 15 103/60 95 11/14/17 00:00 98.5 F 60 15 87/51 97 11/13/17 21:00 66 16 11/13/17 20:00 97.9 F 66 16 90/54 97 11/13/17 16:00 98.0 F 76 16 85/49 94 L 11/13/17 12:00 99.1 F 76 14 107/52 95 Intake and Output 11/13/17 11/14/17 11/14/17 22:59 06:59 14:59 Intake Total 300 1430 Output Total 200 Balance 100 1430 Intake: IV 250 675 Sodium Chloride 0.9% 1, 250 675 000 ml @ 75 mls/hr IV . [id number] [facility] Rx#:[id number] Intake, IV Titration 50 250 Amount Levofloxacin 750Mg-D5w 150 Pmx 750 mg In Dextrose/ Water 1 150ml.bag @ 100 mls/hr IVPB Q24H [facility] Rx#: [id number] Piperacillin-Tazobactam 3 50 .375 gm In Dextrose/Water 1 50ml.bag @ 12.5 mls/hr IVPB Q8HR [facility] Rx#: [id number] Sodium Chloride 0.9% 1, 100 000 ml @ 75 mls/hr IV . [id number] [facility] Rx#:[id number] Tube Feeding 445 Other 60 Output: Urine 200 Other: Voiding Method Bedside Commode Bedside Commode # Voids 200 - Constitutional General appearance: thin - EENT Eyes: no abnormal pupil - Neck Neck: no lymphadenopathy - Respiratory Respiratory: bilateral: diminished - Cardiovascular Rhythm: regular Heart sounds: normal: S1, S2 Abnormal Heart Sounds: no S3 Gallop - Gastrointestinal General gastrointestinal: soft, no tenderness - Integumentary Integumentary: normal - Neurologic Neurologic: CNII-XII intact - Musculoskeletal Musculoskeletal: generalized weakness - Psychiatric Psychiatric: A&O x's 3, appropriate affect, intact judgment & insight Results CBC & Chem 7: 11/14/17 07:36 11/14/17 07:36 Labs: Abnormal Lab Results - Last 24 Hours (Table) 11/13/17 11/14/17 11/14/17 Range/Units 22:44 07:36 07:36 WBC 20.8 H (3.8-10.6) k/uL RBC 3.28 L (3.80-5.40) m/uL Hgb 10.1 L (11.4-16.0) gm/dL Hct 31.5 L (34.0-46.0) % Neutrophils # 19.1 H (1.3-7.7) k/uL Lymphocytes # 0.6 L (1.0-4.8) k/uL Sodium 146 H (137-145) mmol/L BUN 28 H (7-17) mg/dL Glucose 111 H (74-99) mg/dL Phosphorus 5.0 H (2.5-4.5) mg/dL Magnesium 2.4 H (1.6-2.3) mg/dL AST 63 H (14-36) U/L ALT 54 H (9-52) U/L Alkaline Phosphatase 149 H (38-126) U/L Total Protein 5.9 L (6.3-8.2) g/dL Albumin 3.2 L (3.5-5.0) g/dL Microbiology - Last 24 Hours (Table) 11/13/17 01:58 Blood Culture - Preliminary Blood No Growth after 24 hours 11/13/17 01:58 Urine Culture - Preliminary Urine,Voided Thrombosis Risk Factor Assmnt - Choose All That Apply Each Factor Represents 1 point: Age 41-60 years, Medical pt on bed rest Thrombosis Risk Factor Assessment Total Risk Factor Score: 2 Thrombosis Risk Factor Assessment Level: Low Risk Assessment and Plan (1) Chest pain Current Visit: Yes Status: Acute Code(s): R07.9 - CHEST PAIN, UNSPECIFIED SNOMED Code(s): 31688788 (2) Pneumonia Current Visit: Yes Status: Acute Code(s): J18.9 - PNEUMONIA, UNSPECIFIED ORGANISM SNOMED Code(s): 228215644 (3) Nonischemic cardiomyopathy Current Visit: No Status: Ruled-out Code(s): I42.8 - OTHER CARDIOMYOPATHIES SNOMED Code(s): 50223454 Plan: Rule out myocardial infarction. Continue antibiotic treatment for pneumonia. Appreciate cardiology input. Reconcile home medications. Time with Patient: Less than 30
[2017-11-14] MEDS ORDERED: ASPIRIN 325 MG TAB PO SCH (09:00)
[2017-11-14] MEDS: PANTOPRAZOLE 40 MG TABLET PO SCH (09:11)
[2017-11-14] MEDS: FUROSEMIDE 20 MG TAB PO SCH (09:11)
[2017-11-14] MEDS: SPIRONOLACTONE 25 MG TAB PO SCH (09:11)
[2017-11-14] MEDS: CALCIUM CARB-VIT D 500MG-200UN 1 EACH TAB PO SCH (09:12)
[2017-11-14] MEDS: GLYCOPYRROLATE 1 MG TAB PO SCH ×2 (09:12→21:19)
[2017-11-14] MEDS: ASPIRIN 81 MG PO SCH (09:13)
[2017-11-14] MEDS ORDERED: MORPHINE SULFATE 4 MG/ML SYRINGE IV PRN (09:14)
[2017-11-14] MEDS ORDERED: MORPHINE SULFATE 4 MG/ML SYRINGE IVP PRN (09:15)
--- NOTE | 2017-11-14 10:49 | ECHOF ---
Referral Reason:chest pain, murmur MEASUREMENTS -------- HEIGHT: 154.9 cm WEIGHT: 44.9 kg BP: 103/60 RVIDd: 2.2 cm (< 3.3) IVSd: 0.8 cm (0.6 - 1.1) LVIDd: 4.5 cm (3.9 - 5.3) LVPWd: 0.8 cm (0.6 - 1.1) IVSs: 1.1 cm LVIDs: 3.1 cm LVPWs: 1.2 cm LA Diam: 2.1 cm (2.7 - 3.8) Ao Diam: 2.7 cm (2.0 - 3.7) AV Cusp: 2.0 cm (1.5 - 2.6) MV EXCURSION: 19.805 mm (> 18.000) MV EF SLOPE: 95 mm/s (70 - 150) EPSS: 0.3 cm MV E Richie: 0.84 m/s MV DecT: 262 ms MV A Richie: 0.94 m/s MV E/A Ratio: 0.90 RAP: 5.00 mmHg RVSP: 32.48 mmHg FINDINGS -------- Sinus rhythm. This was a technically good study. The left ventricular size is normal. Left ventricular wall thickness is normal. Overall left vent ricular systolic function is normal with, an EF between 55 - 60 %. The right ventricle is normal in size. The left atrial size is normal. The right atrium is normal in size. The aortic valve is trileaflet and appears structurally normal. The mitral valve leaflets are mildly thickened. Mild tricuspid regurgitation present. Right ventricular systolic pressure is normal at < 35 mmHg. Trace/mild (physiologic) pulmonic regurgitation. The aortic root size is normal. There is no pericardial effusion. Moderate Pleural Effusion. CONCLUSIONS -------- 1. Sinus rhythm. 2. This was a technically good study. 3. The left ventricular size is normal. 4. Left ventricular wall thickness is normal. 5. Overall left ventricular systolic function is normal with, an EF between 55 - 60 %. 6. The right ventricle is normal in size. 7. The left atrial size is normal. 8. The right atrium is normal in size. 9. The aortic valve is trileaflet and appears structurally normal. 10. The mitral valve leaflets are mildly thickened. 11. Mild tricuspid regurgitation present. 12. Right ventricular systolic pressure is normal at < 35 mmHg. 13. Trace/mild (physiologic) pulmonic regurgitation. 14. The aortic root size is normal. 15. There is no pericardial effusion. 16. Moderate Pleural Effusion. ANALYTICAL RESEARCH CHEMIST: Ileana Garg RDCS
--- NOTE | 2017-11-14 14:25 | P.PN ---
Subjective Progress Note Date: 11/14/17 Mrs. Irby is a pleasant 57-year-old female past medical history significant for muscular dystrophy, prior non-ischemic cardiomyopathy, hypertension, GERD and peg tube secondary to dysphagia. She is currently being treated for pneumonia. Echocardiogram was performed yesterday and revealed preserved LV systolic function with EF 55-60%. A moderate pleural effusion was also seen. She denies symptoms of chest pain, shortness of breath, dizziness, palpitations, nausea, vomiting or diaphoresis. WBC 20.8, hgb 10.1, plt 309, sodium 146, potassium 3.7, creatinine 0.71, cardiac enzymes negative x3, magnesium 2.4, LDL 67. Blood pressure 117/63 heart rate 79 afebrile and maintaining oxygen saturation on room air. Objective - Vital Signs Vital signs: Vital Signs Temp 97.8 F 11/14/17 12:37 Pulse 79 11/14/17 12:37 Resp 18 11/14/17 12:37 BP 117/63 11/14/17 12:37 Pulse Ox 92 L 11/14/17 12:37 Intake & Output 11/13/17 11/14/17 11/14/17 18:59 06:59 18:59 Intake Total 390 1430 80 Output Total 600 400 Balance -210 1430 -320 Weight 45.1 kg Intake: IV 250 675 Sodium Chloride 0.9% 1, 250 675 000 ml @ 75 mls/hr IV . [id number] [facility] Rx#:[id number] Intake, IV Titration 50 250 Amount Levofloxacin 750Mg-D5w 150 Pmx 750 mg In Dextrose/ Water 1 150ml.bag @ 100 mls/hr IVPB Q24H [facility] Rx#: [id number] Piperacillin-Tazobactam 3 50 .375 gm In Dextrose/Water 1 50ml.bag @ 12.5 mls/hr IVPB Q8HR [facility] Rx#: [id number] Sodium Chloride 0.9% 1, 100 000 ml @ 75 mls/hr IV . [id number] [facility] Rx#:[id number] Tube Feeding 445 Other 90 60 80 Output: Urine 600 400 Other: Voiding Method Bedside Commode Bedside Commode Bedside Commode # Voids 200 - Exam GENERAL: No acute distress. NECK: Supple without JVD or thyromegaly. LUNGS: Breath sounds clear to auscultation bilaterally. Respiration equal and unlabored. No wheezes, rales or rhonchi. HEART: Regular rate and rhythm without murmurs, rubs or gallops. S1 and S2 heard. EXTREMITIES: No edema. No clubbing or cyanosis. Peripheral pulses intact. - Labs CBC & Chem 7: 11/14/17 07:36 11/14/17 07:36 Labs: Abnormal Lab Results - Last 24 Hours (Table) 11/13/17 11/14/17 11/14/17 Range/Units 22:44 07:36 07:36 WBC 20.8 H (3.8-10.6) k/uL RBC 3.28 L (3.80-5.40) m/uL Hgb 10.1 L (11.4-16.0) gm/dL Hct 31.5 L (34.0-46.0) % Neutrophils # 19.1 H (1.3-7.7) k/uL Lymphocytes # 0.6 L (1.0-4.8) k/uL Sodium 146 H (137-145) mmol/L BUN 28 H (7-17) mg/dL Glucose 111 H (74-99) mg/dL Phosphorus 5.0 H (2.5-4.5) mg/dL Magnesium 2.4 H (1.6-2.3) mg/dL AST 63 H (14-36) U/L ALT 54 H (9-52) U/L Alkaline Phosphatase 149 H (38-126) U/L Total Protein 5.9 L (6.3-8.2) g/dL Albumin 3.2 L (3.5-5.0) g/dL Microbiology - Last 24 Hours (Table) 11/13/17 01:58 Blood Culture - Preliminary Blood No Growth after 24 hours 11/13/17 01:58 Urine Culture - Preliminary Urine,Voided Assessment and Plan Assessment: ASSESSMENT 1. Chest pain, atypical. An acute coronary event has been ruled out. 2. Muscular dystrophy 3. Hypertension 4. History of previous non-ischemic cardiomyopathy currently with preserved EF 5. Leukocytosis 6. Pneumonia PLAN From cardiology perspective, continue current medical therapy. Follow-up with Dr. Le upon discharge in 2-3 weeks. Nurse Practitioner note has been reviewed, I agree with a documented findings and plan of care. Patient was seen and examined.
[2017-11-14] MEDS: guaiFENesin SYRUP 100MG/5ML 200 MG/10 ML CUP PEG/G-TUBE PRN ×2 (16:37→21:20)
[2017-11-14] MEDS: SODIUM CHLORIDE 0.9% 1,000 ML IV SCH ×2 (20:00→20:01)
[2017-11-14] MEDS: ERYTHROMYCIN 5 MG/GM OPHTH OINT 3.5 GM TUBE BOTH EYES SCH (21:19)
[2017-11-14] MEDS: TEMAZEPAM 30 MG CAP PO SCH (23:38)
[2017-11-14] MEDS: MELATONIN 3 MG TABLET PO PRN (23:38)
--- NOTE | 2017-11-15 00:12 | P.HPIM ---
History of Present Illness H&P Date: 11/13/17 Chief Complaint: Chest pain Mrs. Irby is a 57-year-old female with a past medical history of myotonic muscular dystrophy, GERD admitted with a chief complaint of chest pain. Patient is a poor historian. So most of the history is obtained from ex- who is also located caregiver. Patient has been coughing for the past day but she cannot bring up anything due to her muscular dystrophy and then started to have the chest pain. Patient denies having any history of fever chills. Patient does not have a history of hypertension and hyperlipidemia. She doesn't have history of smoking. At the time of admission the patient's white blood cell count was high and a chest x-ray was showing chronic left lower lobe infiltrate that improved compared to old exam and with small left pleural effusion. Cardiology services have been consulted and evaluated the patient - she is getting a repeat echocardiogram with Doppler study. Patient has also been started empirically on Zosyn for the left lung infiltrate and leukocytosis. Review of Systems REVIEW OF SYSTEMS NEURO: Generalized weakness due to muscular dystrophy. No complaints of weakness or speech abnormalities VASCULAR: no edema HEMATOLOGIC: No history of easy bleeding and bruising . No recent infections . RESPIRATORY: + cough, No SOB, No chest discomfort. IMMUNE: Had recent history of pneumonia INTEGUMENT: no rashes OPHTHALMOLOGIC: No blurry vision and no eye discharge : No dysuria or hematuria MACHINIST OUTSIDE: No bleeding PV CARDIAC: + chest pain , no shortness of breath or paroxysmal nocturnal dyspnea MUSCULOSKELETAL : Generalized muscle weakness GI: No abdominal pain, Nausea or vomiting. No constipation or diarrhea. Patient has a PEG tube in place Past Medical History Past Medical History: Heart Failure, GERD/Reflux, Musculoskeletal Disorder Additional Past Medical History / Comment(s): myotonic muscular dystrophy, peg tube,dysphagia, hx of cervical fx several years ago due to injury - chronic neck pain History of Any Multi-Drug Resistant Organisms: None Reported Additional Past Surgical History / Comment(s): peg tubes - most recent placed , cataract surg./ EYE LIFT R/T THEM NOT CLOSING PROPERLY, trach 1997 - since removed Past Anesthesia/Blood Transfusion Reactions: Postoperative Nausea & Vomiting ( PONV) Additional Past Anesthesia/Blood Transfusion Reaction / Comment(s): slow to wake up Past Psychological History: No Psychological Hx Reported Smoking Status: Never smoker Past Alcohol Use History: None Reported Past Drug Use History: None Reported - Past Family History Father Family Medical History: Congestive Heart Failure (CHF) Medications and Allergies Home Medications Medication Instructions Recorded Confirmed Type Aspirin 81 mg PO DAILY 11/20/15 11/13/17 History Glycopyrrolate [Robinul] 1 mg PO TID 11/20/15 11/13/17 History Melatonin 3 mg PO HS PRN 11/20/15 11/13/17 History Spironolactone [Aldactone] 25 mg PO DAILY 11/20/15 11/13/17 History Carvedilol [Coreg] 12.5 mg PO BID 05/14/17 11/13/17 History HYDROcodone/APAP 10-325MG [Jasper 1 tab PO Q6H PRN 11/13/17 11/13/17 History 10-325] Losartan [Cozaar] 25 mg PO DAILY 11/13/17 11/13/17 History Omeprazole [PriLOSEC] 40 mg PO DAILY 11/13/17 11/13/17 History Polyethylene Glycol 3350 [Miralax] 17 gm PO Q3D 11/13/17 11/13/17 History Temazepam 30 mg PO HS 11/13/17 11/13/17 History diphenhydrAMINE [Benadryl] 25 mg PO Q6H PRN 11/13/17 11/13/17 History Allergies Allergy/AdvReac Type Severity Reaction Status Date / Time No Known Allergies Allergy Verified 11/13/17 12:40 Physical Exam Vitals: Vital Signs Temp Pulse Pulse Pulse Resp BP BP 11/13/17 16:00 98.0 F 76 16 85/49 11/13/17 12:00 99.1 F 76 14 107/52 11/13/17 08:00 98.6 F 65 14 104/54 11/13/17 04:00 57 L 18 11/13/17 02:59 98.0 F 85 18 116/61 11/13/17 02:10 97.6 F 11/13/17 02:06 61 16 148/71 11/13/17 00:42 57 L 16 100/58 11/12/17 22:10 98.6 F 79 20 105/61 Pulse Ox 11/13/17 16:00 94 L 11/13/17 12:00 95 11/13/17 08:00 96 11/13/17 04:00 11/13/17 02:59 96 11/13/17 02:10 11/13/17 02:06 99 11/13/17 00:42 96 11/12/17 22:10 93 L Intake and Output 11/13/17 11/13/17 11/13/17 06:59 14:59 22:59 Intake Total 90 50 Output Total 400 Balance -310 50 Intake: Intake, IV Titration 50 Amount Piperacillin-Tazobactam 3 50 .375 gm In Dextrose/Water 1 50ml.bag @ 12.5 mls/hr IVPB Q8HR [facility] Rx#: [id number] Other 90 Output: Urine 400 Other: Voiding Method Bedside Commode Bedside Commode Weight 45.1 kg 45.1 kg GENERAL EXAM GEN. APPEARANCE: She is tired but not in apparent distress HEAD EXAM: atraumatic, normocephalic, normal inspection EYE EXAM: normal appearance, PERRL, EOMI. ENT EXAM: mucous membranes dry RESPIRATORY EXAM: Decreased breath sounds bilaterally with mild crackles on the left side CARDIOVASCULAR EXAM: regular rate, normal rhythm, normal heart sounds. Systolic murmur positive GI/ABDOMINAL EXAM: soft, normal bowel sounds. PEG tube site looks normal no signs of infection EXTREMITIES EXAM: Generalized weakness NEUROLOGICAL EXAM: alert, oriented X3, no focal deficits PSYCHIATRIC EXAM: normal affect, normal mood Results CBC & Chem 7: 11/14/17 07:36 11/14/17 07:36 Labs: Abnormal Lab Results - Last 24 Hours (Table) 11/12/17 11/12/17 11/13/17 Range/Units 22:57 22:57 01:58 WBC 19.4 H (3.8-10.6) k/uL RBC 3.66 L (3.80-5.40) m/uL Hgb 11.3 L (11.4-16.0) gm/dL Hct 33.4 L (34.0-46.0) % Neutrophils # 16.3 H (1.3-7.7) k/uL Chloride 97 L (98-107) mmol/L Carbon Dioxide 32 H (22-30) mmol/L BUN 35 H (7-17) mg/dL Plasma Lactic Acid Rashad (0.7-2.0) mmol/L Calcium 10.4 H (8.4-10.2) mg/dL Magnesium 2.5 H (1.6-2.3) mg/dL AST 58 H (14-36) U/L Ur Leukocyte Esterase Large H (Negative) Urine WBC 22 H (0-5) /hpf 11/13/17 Range/Units 03:31 WBC (3.8-10.6) k/uL RBC (3.80-5.40) m/uL Hgb (11.4-16.0) gm/dL Hct (34.0-46.0) % Neutrophils # (1.3-7.7) k/uL Chloride (98-107) mmol/L Carbon Dioxide (22-30) mmol/L BUN (7-17) mg/dL Plasma Lactic Acid Rashad 0.6 L (0.7-2.0) mmol/L Calcium (8.4-10.2) mg/dL Magnesium (1.6-2.3) mg/dL AST (14-36) U/L Ur Leukocyte Esterase (Negative) Urine WBC (0-5) /hpf Microbiology - Last 24 Hours (Table) 11/13/17 01:58 Urine Culture - Preliminary Urine,Voided Thrombosis Risk Factor Assmnt - Choose All That Apply Each Factor Represents 1 point: Age 41-60 years, Medical pt on bed rest Thrombosis Risk Factor Assessment Total Risk Factor Score: 2 Thrombosis Risk Factor Assessment Level: Low Risk Assessment and Plan Assessment: Assessment Chest pain with atypical for acute coronary syndrome SIRS - patient does meet the criteria for SIRS and most likely the source might be lung - patient has been empirically started on Zosyn which will be continued Chronic muscular dystrophy Hypertension Nonischemic cardiomyopathy GERD Plan; we'll continue with Zosyn for now and patient awaiting echocardiogram with Doppler study for tomorrow. Continue with the rest of her home medication regimen. Patient is on chronic pain medications at home. She takes 10 mg of Jasper every 6 hours that has been renewed. We'll continue with IV fluids at 75 mL per hour. Will follow the patient closely.
[2017-11-15] MEDS: CARVEDILOL 12.5 MG TAB PO SCH ×2 (02:53→13:44)
[2017-11-15] MEDS: LOSARTAN 25 MG TAB PO SCH ×2 (02:54→13:39)
[2017-11-15] MEDS: guaiFENesin SYRUP 100MG/5ML 200 MG/10 ML CUP PEG/G-TUBE PRN ×2 (03:00→11:09)
[2017-11-15] MEDS: HYDROcodone/APAP 10-325MG 1 EACH TAB PO PRN ×4 (03:00→13:41)
[2017-11-15] MEDS: LEVOFLOXACIN 750MG-D5W PMX 750 MG in DEXTROSE/WATER 1 150ML.BAG IVPB SCH (03:01)
[2017-11-15] MEDS: CALCIUM CARB-VIT D 500MG-200UN 1 EACH TAB PO SCH (09:38)
[2017-11-15] MEDS: PANTOPRAZOLE 40 MG TABLET PO SCH (09:38)
[2017-11-15] MEDS: ASPIRIN 81 MG PO SCH (09:38)
[2017-11-15] MEDS: PIPERACILLIN-TAZOBACTAM 3.375 GM in DEXTROSE/WATER 1 50ML.BAG IVPB SCH (09:39)
[2017-11-15] MEDS: GLYCOPYRROLATE 1 MG TAB PO SCH (09:39)
[2017-11-15 11:59] VITALS: BP 113/68; PULSE 82; RESP 18; TEMP 98.7
[2017-11-15] MEDS: FUROSEMIDE 20 MG TAB PO SCH (13:24)
--- NOTE | 2017-11-15 13:29 | P.DS ---
Providers Date of admission: 11/13/17 01:37 Attending physician: Leodan Crespo Consults: 11/13/17 01:31 Consult Physician Stat Consulting Provider: Aamir Younger Consult Reason/Comments: Chest pain, pneumonia, muscular dystrophy Do you want consulting provider notified?: Yes Primary care physician: Leodan Crespo - Discharge Diagnosis(es) (1) Chest pain Current Visit: Yes Status: Acute (2) Pneumonia Current Visit: Yes Status: Acute (3) Nonischemic cardiomyopathy Current Visit: No Status: Ruled-out Hospital Course: This is a discharge summary and a 57-year-old white female sent him in for chest pain. She has not underlying history of nonischemic cardiomyopathy and history of pneumonia in the past. There was concern that she could've redeveloped pneumonia. However, this is clinically not necessarily been proven at this discharge. The patient will follow-up with me in about one week. She has struggled with hypotension and we will tend down titrate some of her medications so that this does not become a problematic issue. She'll be discharged stable condition once cleared by cardiology to follow-up with me in approximately one week. Patient Condition at Discharge: Good Plan - Discharge Summary New Discharge Prescriptions: No Action Aspirin 81 mg PO DAILY Melatonin 3 mg PO HS PRN PRN Reason: insomnia Glycopyrrolate [Robinul] 1 mg PO TID Spironolactone [Aldactone] 25 mg PO DAILY Carvedilol [Coreg] 12.5 mg PO BID Temazepam 30 mg PO HS Omeprazole [PriLOSEC] 40 mg PO DAILY HYDROcodone/APAP 10-325MG [[place] 10-325] 1 tab PO Q6H PRN PRN Reason: pain Losartan [Cozaar] 25 mg PO DAILY diphenhydrAMINE [Benadryl] 25 mg PO Q6H PRN PRN Reason: pruritis Polyethylene Glycol 3350 [Miralax] 17 gm PO Q3D Discharge Medication List Aspirin 81 mg PO DAILY 11/20/15 [History] Glycopyrrolate [Robinul] 1 mg PO TID 11/20/15 [History] Melatonin 3 mg PO HS PRN 11/20/15 [History] Spironolactone [Aldactone] 25 mg PO DAILY 11/20/15 [History] Carvedilol [Coreg] 12.5 mg PO BID 05/14/17 [History] HYDROcodone/APAP 10-325MG [[place] 10-325] 1 tab PO Q6H PRN 11/13/17 [History] Losartan [Cozaar] 25 mg PO DAILY 11/13/17 [History] Omeprazole [PriLOSEC] 40 mg PO DAILY 11/13/17 [History] Polyethylene Glycol 3350 [Miralax] 17 gm PO Q3D 11/13/17 [History] Temazepam 30 mg PO HS 11/13/17 [History] diphenhydrAMINE [Benadryl] 25 mg PO Q6H PRN 11/13/17 [History] Follow up Appointment(s)/Referral(s): Leodan Crespo MD [Primary Care Provider] - 1-2 days Chet Le MD [STAFF PHYSICIAN] - 2 Weeks
[2017-11-15] MEDS: SPIRONOLACTONE 25 MG TAB PO SCH (13:39)
== END 2017-11-15 14:15 | disposition home health service (06) ==
LOC: EC 21:45 → 3OBS 11-13 01:37
PROVIDERS: ADMIT Family Medicine; ATTEND Family Medicine
DX: R07.89 Other chest pain (principal); J18.9 Pneumonia, unspecified organism; K21.9 Gastro-esophageal reflux disease without esophagitis; I44.7 Left bundle-branch block, unspecified; I11.0 Hypertensive heart disease with heart failure; I50.9 Heart failure, unspecified; I42.9 Cardiomyopathy, unspecified; G89.29 Other chronic pain; G71.11 Myotonic muscular dystrophy; Z79.82 Long term (current) use of aspirin; Z79.899 Other long term (current) drug therapy; Z82.49 Family history of ischemic heart disease and other diseases of the circulatory system; Z43.1 Encounter for attention to gastrostomy; Z98.49 Cataract extraction status, unspecified eye; R11.2 Nausea with vomiting, unspecified; R13.10 Dysphagia, unspecified; Z87.01 Personal history of pneumonia (recurrent)
CPT/HCPCS: 96375 ×3; 96361 ×5; 96365 ×2; 99285 ×2; 96366 ×3; 96367; 96376; 36415; 93306; 85379; 80061; 80053 ×2; 82550; 82553; 83605; 83735 ×2; 84100; 84132; 84484 ×2; 85025 ×2; 85610; 85730; 81001; 87040; 87086; 71046; G0378 ×3; J2405; J1956 ×2; J2543 ×3; J2270 ×2

== ENCOUNTER 2018-02-01 02:10 | Inpatient (IN) | payer OTHER ==
[2018-02-01] MEDS ORDERED: SODIUM CHLORIDE 0.9% 500 ML BAG ONE ×2 (03:21)
[2018-02-01] MEDS ORDERED: SODIUM CHLORIDE 0.9% 250 ML BAG ONE (03:21)
[2018-02-01] MEDS ORDERED: cefTRIAXone 2,000 MG in SODIUM CHLORIDE 0.9% 100 ML IVPB STA (04:41)
[2018-02-01] MEDS ORDERED: AZITHROMYCIN 500 MG in DEXTROSE 5% IN WATER 250 ML IVPB STA ×2 (04:41)
[2018-02-01] MEDS ORDERED: cefTRIAXone IN SWFI 2,000 MG/20 ML SYRINGE IVP ONE (04:45)
[2018-02-01] MEDS ORDERED: PNEUMONIA PROTOCOL UTILIZED 1 EACH MISC PO PRN (04:50)
[2018-02-01 05:39] LABS: ALT 45 U/L (9-52); AST 103 U/L (14-36); Alkaline Phosphatase 116 U/L (38-126); Anion Gap 8 mmol/L; Blood Urea Nitrogen 31 mg/dL (7-17); Calcium 9.7 mg/dL (8.4-10.2); Carbon Dioxide 27 mmol/L (22-30); Chloride 103 mmol/L (98-107); Glucose 83 mg/dL (74-99); Sodium 138 mmol/L (137-145); Total Bilirubin 0.9 mg/dL (0.2-1.3); Total Protein 7.4 g/dL (6.3-8.2)
[2018-02-01 05:59] LABS: HCT 33.8 % (34.0-46.0); HGB 11.2 gm/dL (11.4-16.0); MCH 31.4 pg (25.0-35.0); MCHC 33.2 g/dL (31.0-37.0); MCV 94.5 fL (80.0-100.0); Mean Platelet Volume 7.5; Platelet Count 329 k/uL (150-450); RBC 3.57 m/uL (3.80-5.40); RDW 13.9 % (11.5-15.5); WBC 14.8 k/uL (3.8-10.6)
[2018-02-01 06:02] LABS: Band Neutrophils % 22 %; Lymphocytes # (M) 2.37 k/uL (1.0-4.8); Monocytes # (M) 0.44 k/uL (0-1.0); Neutrophils % (M) 60 %; Nucleated Red Blood Cells 0 /100 WBC (0-0); Total Cells Counted 200
[2018-02-01] MEDS: IPRATROPIUM-ALBUTEROL 3 ML NEB INHALATION SCH ×4 (07:47→19:35)
[2018-02-01] MEDS ORDERED: MELATONIN 3 MG TABLET PO PRN ×2 (09:27→21:00)
[2018-02-01] MEDS ORDERED: diphenhydrAMINE 25 MG CAP PO PRN (09:27)
[2018-02-01] MEDS: CARVEDILOL 12.5 MG TAB PO SCH ×2 (09:47→17:30)
[2018-02-01] MEDS: SPIRONOLACTONE 25 MG TAB PO SCH (09:47)
[2018-02-01] MEDS: HYDROcodone/APAP 10-325MG 1 EACH TAB PO PRN ×3 (09:54→21:45)
--- NOTE | 2018-02-01 09:57 | XR ---
EXAM: XR Chest, 2 Views CLINICAL HISTORY: pneumonia TECHNIQUE: Frontal and lateral views of the chest. COMPARISON: No relevant prior studies available. FINDINGS: Lungs: Left lower lung opacification may represent pleural effusion with atelectasis/consolidation. Pleural space: See above. Heart: Unremarkable. Mediastinum: Unremarkable. Bones/joints: Unremarkable. IMPRESSION: Left lower lung opacification may represent pleural effusion with atelectasis/consolidation.
[2018-02-01] MEDS: POLYETHYLENE GLYCOL 3350 17 GM POWD.PACK PO SCH (11:18)
[2018-02-01] MEDS ORDERED: ACETAMINOPHEN TAB 325 MG TAB PO PRN (11:58)
--- NOTE | 2018-02-01 12:06 | P.HPIM ---
<Akiko Reyes - Last Filed: 02/06/18 14:21> History of Present Illness H&P Date: 02/01/18 Chief Complaint: lethargy, fever 57-year-old female with history of muscular dystrophy who presented to the emergency room due to fever and lethargy. The patients ex-, Rui, is her wetland scientist. He is at the bedside and majority of history is taken from him. He reports over the last 24-48 hours, the patient has become more lethargic and had been having fevers at home. He states last night the patient continued to have a fever, was incoherent, and unable to hold her head up so he decided to bring her to the emergency room last night for further evaluation. The patient is too weak to cough up sputum but he reports occasionally she does "bring up a little bit on her tongue and then we use a tissue to remove it". The patient also has a history of dysphagia. Transplant Surgeon reports that the patient is able to tolerate small sips of water and cheese puffs as a snack. The patient has a PEG tube and has tube feedings infusing at overnight for approximately 10 hours. Transplant Surgeon states he attempts to infuse 500 mL overnight , but patient does not always tolerate this quantity. The patient also has a history of GERD, pneumonia, and chronic neck pain. Chest x-ray completed in the emergency room revealed left lower lung opacification that may represent pleural effusion with atelectasis and/or consolidation. Laboratory data reveals WBC of 14.8. Hemoglobin 11.2. Platelet count 329. Sodium 130. Potassium 4.8. BUN 31. Creatinine 0.50. Glucose 83. Lactic acid 2.4. She was hypotensive in the emergency room with blood pressures running 80s/50s. She was started on IV antibiotics and admitted to the hospital under the care of Dr. Crespo Review of Systems Those systems with pertinent positive or pertinent negative responses have been documented in the HPI Past Medical History Past Medical History: Heart Failure, GERD/Reflux, Musculoskeletal Disorder Additional Past Medical History / Comment(s): myotonic muscular dystrophy, nonischemic cardiomyopathy, pneumonias, chronic L lung infiltrate, dysphagia/ peg tube-takes very little orally/alittle water/pills crushed thru peg, hx of cervical fx several years ago due to injury - chronic neck pain, constipation. History of Any Multi-Drug Resistant Organisms: None Reported Additional Past Surgical History / Comment(s): peg tubes - most recent placed , bilateral cataract surg./blepharoplasty, jaw surgery, trach 1998 - since removed Past Anesthesia/Blood Transfusion Reactions: Postoperative Nausea & Vomiting ( PONV) Additional Past Anesthesia/Blood Transfusion Reaction / Comment(s): slow to wake up Smoking Status: Never smoker - Past Family History Father Family Medical History: Congestive Heart Failure (CHF) Additional Family Medical History / Comment(s): Father of CHF in his 70s. Mother Family Medical History: No Reported History Medications and Allergies Home Medications Medication Instructions Recorded Confirmed Type Glycopyrrolate [Robinul] 1 mg PO TID 11/20/15 02/01/18 History Melatonin 3 mg PO HS PRN 11/20/15 02/01/18 History Carvedilol [Coreg] 12.5 mg PO BID 05/14/17 02/01/18 History HYDROcodone/APAP 10-325MG [[place] 1 tab PO Q6H PRN 11/13/17 02/01/18 History 10-325] Losartan [Cozaar] 12.5 mg PO DAILY 11/13/17 02/01/18 History Omeprazole [PriLOSEC] 40 mg PO DAILY 11/13/17 02/01/18 History Polyethylene Glycol 3350 [Miralax] 17 gm PO Q3D 11/13/17 02/01/18 History Temazepam 30 mg PO HS 11/13/17 02/01/18 History diphenhydrAMINE [Benadryl] 25 mg PO Q6H PRN 11/13/17 02/01/18 History Aspirin 81 mg PO DAILY chew 11/15/17 02/01/18 Rx Spironolactone [Aldactone] 12.5 mg PO DAILY #30 tab 11/15/17 02/01/18 Rx guaiFENesin-DM 100-10MG/5ML 10 ml PO Q6H PRN 02/01/18 02/01/18 History [Robitussin DM] Clindamycin [Cleocin] 300 mg PO Q6H #20 capsule 02/09/18 Rx Metoclopramide HCl [Reglan] 5 mg PO AC-TID PRN #20 tablet 02/09/18 Rx predniSONE 10 mg PO DAILY #10 tab 02/09/18 Rx Allergies Allergy/AdvReac Type Severity Reaction Status Date / Time No Known Allergies Allergy Verified 11/13/17 12:40 Physical Exam Vitals: Vital Signs Temp Pulse Pulse Resp BP BP Pulse Ox 02/01/18 08:02 80 02/01/18 07:51 98.6 F 74 24 105/51 92 L 02/01/18 07:47 80 02/01/18 06:30 69 19 97/52 94 L 02/01/18 05:30 69 20 89/51 96 Intake and Output 01/31/18 02/01/18 02/01/18 22:59 06:59 14:59 Other: Weight 50.802 kg 50.802 kg GENERAL: This is a 57-year-old female in no apparent distress at the time of examination but is lethargic. HEENT: Head is atraumatic, normocephalic. Pupils are equal, round, and reactive to light. Sclerae anicteric. Conjunctivae are clear. Mucus membranes of the mouth are moist. Neck is supple. RESPIRATORY: Diminished breath sounds to left lower lobe. No wheezes, rales, or rhonchi. No use of accessory muscles. Patient maintaining oxygen saturation greater than 92%. No chest wall tenderness is noted on palpation or with deep breathing. CARDIOVASCULAR: Regular rate and rhythm. S1 and S2 noted. Systolic murmur auscultated. No JVD noted. No S3 or S4 noted. GASTROINTESTINAL: PEG tube noted. No distention noted. Abdomen soft and round. Normal active bowel sounds auscultated x 4 quadrants. No pain or tenderness noted upon palpation. INTEGUMENTARY: No cyanosis. No jaundice. No rashes noted. No cellulitis noted. EXTREMITIES: 2+ peripheral pulses. No evidence of peripheral edema. No calf tenderness noted. PSYCHIATRIC: Lethargic. Patient is arousable to verbal stimulation. Slurred speech present, which is patient's baseline. Results CBC & Chem 7: 02/06/18 06:53 02/06/18 06:53 Labs: Abnormal Lab Results - Last 24 Hours (Table) 02/01/18 02/01/18 02/01/18 Range/Units 02:48 02:48 02:48 WBC 14.8 H (3.8-10.6) k/uL RBC 3.57 L (3.80-5.40) m/uL Hgb 11.2 L (11.4-16.0) gm/dL Hct 33.8 L (34.0-46.0) % Neutrophils # (Manual) 12.10 H (1.3-7.7) k/uL Potassium 6.0 H (3.5-5.1) mmol/L BUN 31 H (7-17) mg/dL Creatinine 0.50 L (0.52-1.04) mg/dL Plasma Lactic Acid Rashad 2.4 H* (0.7-2.0) mmol/L AST 103 H (14-36) U/L Thrombosis Risk Factor Assmnt - Choose All That Apply Any of the Below Risk Factors Present?: Yes Each Factor Represents 1 point: Age 41-60 years Other Risk Factors: No Other congenital or acquired thrombophilia - If yes, enter type in comment: No Thrombosis Risk Factor Assessment Total Risk Factor Score: 1 Thrombosis Risk Factor Assessment Level: Low Risk Assessment and Plan Plan: ASSESSMENT: Left lower lobe pneumonia, present on admission, possible aspiration versus bacterial organism, unspecified Sepsis: patient presented with fever, elevated lactic acid, leukocytosis and hypotension, secondary to above, improving History of muscular dystrophy Gastroesophageal reflux disease Dysphagia secondary to muscular dystrophy Chronic neck pain due to previous cervical fracture secondary to injury Recent hospitalization in November 2017 secondary to pneumonia PLAN: Continue antibiotics: Ceftriaxone and Zithromax Resume home medications as appropriate Hold blood pressure medications for systolic blood pressure less than 90 Gentle IV hydration at 50 mL an hour for 24 hours Dietitian on consult. Tube feedings to begin tonight. Monitor labs. Repeat in AM GI prophylaxis: Protonix 40 mg via PEG Daily DVT prophylaxis: SCDs to bilateral LE Monitor vital signs and address as appropriate Discharge planning: Patient to return home when stable with caregiver, Rui Further recommendations pending patient's course Nurse practitioner note has been reviewed by physician. Signing provider agrees with the documented findings, assessment, and plan of care. <Leodan Crespo - Last Filed: 02/15/18 20:05> History of Present Illness I have reviewed this note and agree with the findings. Additional amended findings will be added as necessary. I have seen the patient with Akiko Reyes nurse practitioner Results CBC & Chem 7: 02/07/18 07:56 02/07/18 07:56 Assessment and Plan (1) Community acquired pneumonia Status: Acute Code(s): J18.9 - PNEUMONIA, UNSPECIFIED ORGANISM SNOMED Code(s ): 110842817 (2) Muscular dystrophy Status: Acute Code(s): G71.0 - MUSCULAR DYSTROPHY SNOMED Code(s): 78458102
[2018-02-01] MEDS: GLYCOPYRROLATE 1 MG TAB PO SCH ×2 (15:59→21:45)
[2018-02-01] MEDS: TEMAZEPAM 30 MG CAP PO SCH (21:45)
[2018-02-01] MEDS: SODIUM CHLORIDE 0.9% 1,000 ML IV SCH (21:55)
[2018-02-02] MEDS: guaiFENesin-DM 100-10MG/5ML 10 ML CUP PO PRN ×2 (03:53→12:51)
[2018-02-02] MEDS: IPRATROPIUM-ALBUTEROL 3 ML NEB INHALATION SCH ×4 (08:23→19:27)
[2018-02-02 08:46] LABS: Basophils % (A) 0 %; Eosinophils % (A) 0 %; HCT 33.3 % (34.0-46.0); HGB 10.6 gm/dL (11.4-16.0); Hypochromasia Slight; Lymphocytes # (A) 0.6 k/uL (1.0-4.8); Lymphocytes % (A) 5 %; MCH 30.9 pg (25.0-35.0); MCHC 31.8 g/dL (31.0-37.0); MCV 97.2 fL (80.0-100.0); Mean Platelet Volume 8.3; Monocytes # (A) 0.7 k/uL (0-1.0); Monocytes % (A) 5 %; Neutrophils # (A) 11.2 k/uL (1.3-7.7); Neutrophils % (A) 88 %; Platelet Count 242 k/uL (150-450); RBC 3.43 m/uL (3.80-5.40); RDW 13.6 % (11.5-15.5); WBC 12.7 k/uL (3.8-10.6)
[2018-02-02] MEDS: CARVEDILOL 12.5 MG TAB PO SCH ×2 (09:00→17:10)
[2018-02-02] MEDS: SPIRONOLACTONE 25 MG TAB PO SCH (09:00)
[2018-02-02] MEDS: PANTOPRAZOLE 40 MG TABLET PO SCH (09:00)
[2018-02-02] MEDS: LOSARTAN 25 MG TAB PO SCH (09:00)
[2018-02-02] MEDS: AZITHROMYCIN 500 MG TAB PO SCH (09:00)
[2018-02-02] MEDS: GLYCOPYRROLATE 1 MG TAB PO SCH ×3 (09:01→21:58)
[2018-02-02] MEDS: ASPIRIN 81 MG PO SCH (09:01)
[2018-02-02] MEDS: HYDROcodone/APAP 10-325MG 1 EACH TAB PO PRN ×3 (09:07→22:31)
[2018-02-02] MEDS: cefTRIAXone IN SWFI 1,000 MG/10 ML SYRINGE IVP SCH (09:08)
[2018-02-02 11:28] LABS: Glucose,Whole Blood 144 mg/dL (75-99)
[2018-02-02] MEDS: INSULIN ASPART 100 UNIT/ML 1 ML 10 ML VIAL SQ SCH ×2 (11:46→17:11)
[2018-02-02] MEDS: SODIUM CHLORIDE 0.9% 1,000 ML IV SCH (16:06)
[2018-02-02 17:08] LABS: Glucose,Whole Blood 113 mg/dL (75-99)
[2018-02-02 19:35] LABS: Glucose,Whole Blood 117 mg/dL (75-99)
[2018-02-02 19:48] LABS: Hemoglobin A1C 5.1 % (4.0-6.0)
[2018-02-02] MEDS: TEMAZEPAM 30 MG CAP PO SCH (21:58)
[2018-02-03] MEDS: INSULIN ASPART 100 UNIT/ML 1 ML 10 ML VIAL SQ SCH ×4 (05:00→17:40)
[2018-02-03] MEDS: guaiFENesin-DM 100-10MG/5ML 10 ML CUP PO PRN ×4 (05:22→23:06)
[2018-02-03] MEDS: HYDROcodone/APAP 10-325MG 1 EACH TAB PO PRN ×4 (05:23→23:06)
[2018-02-03 05:42] LABS: Glucose,Whole Blood 115 mg/dL (75-99)
[2018-02-03] MEDS: IPRATROPIUM-ALBUTEROL 3 ML NEB INHALATION SCH ×4 (07:59→21:57)
--- NOTE | 2018-02-03 08:39 | XR ---
EXAMINATION TYPE: XR chest 1V portable DATE OF EXAM: 02/03/2018 CLINICAL HISTORY: Difficulty breathing and pneumonia progress study. TECHNIQUE: Single AP portable upright view of the chest is obtained. COMPARISON: Chest x-ray from 2 days day earlier and older exam November 12, 2017 FINDINGS: There is new right basilar opacity. There is persistent left basilar opacity with increasi ng left midlung opacity. There is silhouetting of left heart border and hemidiaphragm redemonstrated. Suspect dilated proximal to mid esophagus to sg level similar to prior. If there are symptoms of dysphagia consider esophagram to further evaluate. Cardiac silhouette size is stable and suspected m ildly enlarged. Osseous structures are intact. IMPRESSION: New right basilar opacity felt to reflect small pleural effusion and associated bibasilar atelectasis and/or infiltrate. Worsening left mid to basilar opacity felt to reflect worsening infil trate and/or atelectasis and probable small to moderate-sized left pleural effusion.
[2018-02-03] MEDS: CARVEDILOL 12.5 MG TAB PO SCH ×2 (09:52→17:41)
[2018-02-03] MEDS: cefTRIAXone IN SWFI 1,000 MG/10 ML SYRINGE IVP SCH (09:52)
[2018-02-03] MEDS: LOSARTAN 25 MG TAB PO SCH (09:52)
[2018-02-03] MEDS: GLYCOPYRROLATE 1 MG TAB PO SCH ×3 (09:52→22:21)
[2018-02-03] MEDS: SPIRONOLACTONE 25 MG TAB PO SCH (09:52)
[2018-02-03] MEDS: ASPIRIN 81 MG PO SCH (09:52)
[2018-02-03] MEDS: AZITHROMYCIN 500 MG TAB PO SCH (09:53)
[2018-02-03] MEDS: PANTOPRAZOLE 40 MG TABLET PO SCH (09:53)
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
[2018-02-03] MEDS: guaiFENesin 600 MG TABLET.ER PO SCH ×2 (11:25→22:14)
[2018-02-03] MEDS: methylPREDNISolone SOD SUCCI 125 MG/2 ML VIAL IV SCH ×2 (11:25→17:48)
[2018-02-03 11:37] LABS: Glucose,Whole Blood 138 mg/dL (75-99)
[2018-02-03 11:44] LABS: Albumin 2.6 g/dL (3.5-5.0); Amylase <30 U/L (30-110); Anion Gap 5 mmol/L; Calcium 8.9 mg/dL (8.4-10.2); Carbon Dioxide 24 mmol/L (22-30); Chloride 112 mmol/L (98-107); Glucose 117 mg/dL (74-99); Sodium 141 mmol/L (137-145); Total Bilirubin 0.4 mg/dL (0.2-1.3); Total Protein 5.3 g/dL (6.3-8.2)
[2018-02-03 11:48] LABS: AST 36 U/L (14-36); Blood Urea Nitrogen 18 mg/dL (7-17); Potassium 4.5 mmol/L (3.5-5.1)
[2018-02-03 11:49] LABS: ALT 43 U/L (9-52); Alkaline Phosphatase 138 U/L (38-126); LDH 559 U/L (313-618)
[2018-02-03 12:10] LABS: INR 0.9 (<1.2); Prothrombin Time 9.4 sec (9.0-12.0)
[2018-02-03 12:43] LABS: Basophils # (A) 0.1 k/uL (0-0.2); Basophils % (A) 0 %; Eosinophils # (A) 0.2 k/uL (0-0.7); Eosinophils % (A) 1 %; HCT 31.2 % (34.0-46.0); HGB 9.9 gm/dL (11.4-16.0); Hypochromasia Slight; Lymphocytes # (A) 0.9 k/uL (1.0-4.8); Lymphocytes % (A) 7 %; MCH 30.8 pg (25.0-35.0); MCHC 31.9 g/dL (31.0-37.0); MCV 96.5 fL (80.0-100.0); Mean Platelet Volume 8.7; Monocytes # (A) 0.9 k/uL (0-1.0); Monocytes % (A) 7 %; Neutrophils # (A) 11.7 k/uL (1.3-7.7); Neutrophils % (A) 84 %; Platelet Count 311 k/uL (150-450); RBC 3.23 m/uL (3.80-5.40); RDW 13.9 % (11.5-15.5)
--- NOTE | 2018-02-03 13:19 | P.PN ---
Subjective Progress Note Date: 02/03/18 Principal diagnosis: Pneumonia with hypoxia. This is a continue proximal and a 57-year-old female patient with recurrent pneumonia of the left lower lobe area. She has an underlying history of muscular dystrophy and has dysphagia with tube feeding. She seems sedated today but has significant coughing fits. No significant nausea, vomiting or diarrhea as stated. She has been somewhat hypoxic this morning. We will go ahead and repeat chest x-ray today. Objective - Vital Signs Vital signs: Vital Signs Temp 99.2 F 02/03/18 05:00 Pulse 94 02/03/18 11:40 Resp 16 02/03/18 05:00 BP 109/58 02/03/18 05:00 Pulse Ox 84 L 02/03/18 08:02 Intake & Output 02/02/18 02/03/18 02/03/18 18:59 06:59 18:59 Intake Total 760 985 Balance 760 985 Weight 56.7 kg Intake: IV 400 500 Sodium Chloride 0.9% 1, 400 500 000 ml @ 50 mls/hr IV . Q20H [facility] Rx#:[id number] Oral 125 Tube Feeding 360 360 Other: Voiding Method Bedside Commode Bedside Commode Bedside Commode # Voids 2 1 - Constitutional General appearance: Present: thin - EENT Eyes: Absent: abnormal pupil - Neck Neck: Absent: lymphadenopathy - Respiratory Respiratory: bilateral: CTA - Cardiovascular Rhythm: regular Heart sounds: normal: S1, S2 Abnormal Heart Sounds: Absent: S3 Gallop - Gastrointestinal General gastrointestinal: Present: soft. Absent: tenderness - Neurologic Neurologic: Present: CNII-XII intact. Absent: focal deficits - Labs CBC & Chem 7: 02/03/18 08:26 02/03/18 08:26 Labs: Abnormal Lab Results - Last 24 Hours (Table) 02/02/18 02/02/18 02/03/18 Range/Units 17:05 19:34 05:41 WBC (3.8-10.6) k/uL RBC (3.80-5.40) m/uL Hgb (11.4-16.0) gm/dL Hct (34.0-46.0) % Neutrophils # (1.3-7.7) k/uL Lymphocytes # (1.0-4.8) k/uL D-Dimer (<0.60) mg/L FEU Chloride (98-107) mmol/L BUN (7-17) mg/dL Creatinine (0.52-1.04) mg/dL Glucose (74-99) mg/dL POC Glucose (mg/dL) 113 H 117 H 115 H (75-99) mg/dL Alkaline Phosphatase (38-126) U/L Total Protein (6.3-8.2) g/dL Albumin (3.5-5.0) g/dL Amylase (30-110) U/L 02/03/18 02/03/18 02/03/18 Range/Units 08:26 08:26 08:26 WBC 14.0 H (3.8-10.6) k/uL RBC 3.23 L (3.80-5.40) m/uL Hgb 9.9 L (11.4-16.0) gm/dL Hct 31.2 L (34.0-46.0) % Neutrophils # 11.7 H (1.3-7.7) k/uL Lymphocytes # 0.9 L (1.0-4.8) k/uL D-Dimer 2.63 H (<0.60) mg/L FEU Chloride 112 H (98-107) mmol/L BUN 18 H (7-17) mg/dL Creatinine 0.40 L (0.52-1.04) mg/dL Glucose 117 H (74-99) mg/dL POC Glucose (mg/dL) (75-99) mg/dL Alkaline Phosphatase 138 H (38-126) U/L Total Protein 5.3 L (6.3-8.2) g/dL Albumin 2.6 L (3.5-5.0) g/dL Amylase <30 L (30-110) U/L 02/03/18 Range/Units 11:34 WBC (3.8-10.6) k/uL RBC (3.80-5.40) m/uL Hgb (11.4-16.0) gm/dL Hct (34.0-46.0) % Neutrophils # (1.3-7.7) k/uL Lymphocytes # (1.0-4.8) k/uL D-Dimer (<0.60) mg/L FEU Chloride (98-107) mmol/L BUN (7-17) mg/dL Creatinine (0.52-1.04) mg/dL Glucose (74-99) mg/dL POC Glucose (mg/dL) 138 H (75-99) mg/dL Alkaline Phosphatase (38-126) U/L Total Protein (6.3-8.2) g/dL Albumin (3.5-5.0) g/dL Amylase (30-110) U/L Microbiology - Last 24 Hours (Table) 02/01/18 06:51 Blood Culture - Preliminary Blood No Growth after 48 hours 02/01/18 02:48 Blood Culture - Preliminary Blood No Growth after 48 hours Assessment and Plan (1) Community acquired pneumonia Current Visit: No Status: Acute Code(s): J18.9 - PNEUMONIA, UNSPECIFIED ORGANISM SNOMED Code(s): 841931298 (2) Muscular dystrophy Current Visit: No Status: Acute Code(s): G71.0 - MUSCULAR DYSTROPHY SNOMED Code(s): 52623489 (3) Nonischemic cardiomyopathy Current Visit: No Status: Ruled-out Code(s): I42.8 - OTHER CARDIOMYOPATHIES SNOMED Code(s): 57242059 Plan: The patient will have contiued current regimen of antibiotic treatment. However we will check CBC and CMP in the a.m. Ask pulmonology did assist and they are not consulted. Dr. Ayala's group will be covering for the weekend. Watch tube feeding and any voiding issues.
--- NOTE | 2018-02-03 13:29 | US ---
EXAMINATION TYPE: US chest DATE OF EXAM: 02/03/2018 COMPARISON: NONE CLINICAL HISTORY: bilateral pl effusions. EXAM MEASUREMENTS: Left Pleural Effusion fluid pocket: 4.8 cm Left skin to fluid thickness: 1.5 cm Left side not marked due to lung tissue. Pulmonologists are able to review the images in the patient?s EMR. Ultrasound performed of the posterior right and left chest. IMPRESSIONS: Small right pleural effusion, moderate left pleural effusion.
--- NOTE | 2018-02-03 13:58 | CT ---
EXAMINATION TYPE: CT angio chest DATE OF EXAM: 02/03/2018 COMPARISON: Chest radiograph of the same date HISTORY: Shortness of breath, elevated d-dimer. CT DLP: 143 mGycm. Automated Exposure Control for Dose Reduction was Utilized. CONTRAST: CTA scan of the thorax is performed with IV Contrast, patient injected with 56 mL of Isovue 370, pulm onary embolism protocol. MIP Images are created on CT scanner and reviewed. FINDINGS: LUNGS: There is a moderate left pleural effusion, however the majority of the consolidation seen on t he prior chest radiograph of the same date relate to left-sided airspace disease with air bronchogram s. A small right pleural effusion is also seen with associated compressive atelectasis of nearly the entirety of the right lower lobe. No gross endobronchial obstructing lesion is seen although there is questioned endobronchial narrowing on series 5 image 65 to the superior segment of the right lower l obe. There is compensatory hyperexpansion of the right upper lobe with no focal airspace disease or s uspicious nodule. Right middle lobe is unremarkable. In regards to the left upper lobe and left lower lobe as well as lingular consolidations areas of decreased enhancement are interspersed between area s of enhancing atelectasis representing pneumonia and atelectasis. A more rounded region on series 4 image 40 and series 5 image 40 within the anterior left upper lobe measures 2.4 cm. Evaluation of thi s area after resolution of symptoms is recommended to ensure this does not represent underlying pulmo nary nodule although some air bronchograms are seen abutting this. There is narrowing of the left bas ilar medial bronchi with collapse of the most distal bronchi. MEDIASTINUM: There is satisfactory enhancement of the pulmonary artery and its branches, there is no CT evidence for pulmonary embolism. Mediastinal lymph nodes are enlarged prevascular lymph node measu ring 1.1 cm on series 4 image 45, aorticopulmonary window lymph node measuring 1.0 cm, subcarinal lym ph node measuring 1.0 cm, and left hilar lymph nodes ill-defined. There is mild cardiomegaly without pericardial effusion. Nonenlarged supraclavicular lymph nodes are seen bilaterally. OTHER: The stomach appears entirely fluid filled. Mild multilevel degenerative changes of the thoraci c spine are noted. Old healed sternal body fracture is present. IMPRESSION: 1. Moderate left pleural effusion and small right pleural effusion with extensive multifocal subsegme ntal atelectasis and near complete atelectasis of the lower lobes. Interspersed areas of decreased at tenuation relate to multifocal pneumonia, predominantly left-sided with associated mediastinal adenop athy. 2. Left upper lobe more nodular component for which CT thorax after resolution of symptoms is recomme nded to ensure no underlying pulmonary mass. 3. Multiple areas of endobronchial narrowing are seen within the right upper lobe and medial left low er lobe without visualization of endobronchial obstructing lesion. 4. No evidence of pulmonary embolus.
--- NOTE | 2018-02-03 14:29 | US ---
EXAMINATION TYPE: US venous doppler duplex LE DATE OF EXAM: 02/03/2018 12:43 PM COMPARISON: NONE CLINICAL HISTORY: edema. No pain. No redness. SIDE PERFORMED: Bilateral TECHNIQUE: The lower extremity deep venous system is examined utilizing real time linear array sonog samson with graded compression, doppler sonography and color-flow sonography. VESSELS IMAGED: External Iliac Vein (EIV) Common Femoral Vein Deep Femoral Vein Greater Saphenous Vein * Femoral Vein Popliteal Vein Small Saphenous Vein * Proximal Calf Veins (* superficial vessels) Right Leg: Negative for DVT Left Leg: Negative for DVT Grayscale, color doppler, spectral doppler imaging performed of the deep veins of the bilateral lower extremities. There is normal flow, compressibility, vascular waveforms. IMPRESSION: No ultrasound evidence for acute DVT in either lower extremity.
--- NOTE | 2018-02-03 14:46 | XR ---
EXAMINATION TYPE: XR chest 1V DATE OF EXAM: 02/03/2018 COMPARISON: Prior chest 02/03/2018 HISTORY: Status post left thoracentesis TECHNIQUE: Single frontal view of the chest is obtained. FINDINGS: There is improvement in the aeration in the left lung. No evident pneumothorax. Patchy luis ateral density again noted within the lungs. IMPRESSION: No evident complication status post thoracentesis.
[2018-02-03] MEDS: CLINDAMYCIN 600 MG in DEXTROSE 5% IN WATER 50 ML IVPB SCH ×4 (14:49→17:52)
--- NOTE | 2018-02-03 15:20 | US ---
EXAMINATION TYPE: US thoracentesis DATE OF EXAM: 02/03/2018 COMPARISON: CTA same date HISTORY: Pleural effusion. FINDINGS: Maximal barrier technique was utilized. The skin overlying a suitable pocket of fluid was localized and the overlying skin prepped and draped. Lidocaine was used for local anesthesia. Ultras ound was used with sterile technique. A 5 [place] catheter over guide needle was advanced into the pl eural fluid collection using ultrasound guidance and the catheter advanced, needle removed. Approxim ately 120 mL of serous fluid was removed. Catheter was withdrawn and hemostasis achieved. There is no immediate complication. The patient discharged in stable condition without complication. IMPRESSION: STATUS POST ULTRASOUND GUIDED THORACENTESIS, POST PROCEDURE CHEST X-RAY PENDING. THIS [place] OCEDURE WAS PERFORMED BY THE UNDERSIGNED. Specimen submitted for microbiology analysis.
[2018-02-03 15:51] LABS: Appearance,BF Cloudy; Color,BF Yellow
[2018-02-03 16:30] LABS: Nucleated Cells, Body Fluid 6300 /uL; RBC, Body Fluid 1700 /uL
[2018-02-03 16:31] LABS: Mononuclear WBC,Body Fluid 13 %; Polynuclear WBC,Body Fluid 87 %; Total Cells Counted,Body Fluid 100
[2018-02-03 17:26] LABS: Glucose,Whole Blood 145 mg/dL (75-99)
[2018-02-03] MEDS: BUDESONIDE 0.5 MG/2 ML NEBU INHALATION SCH (21:57)
[2018-02-03] MEDS: MONTELUKAST 10 MG TAB PO SCH (22:21)
[2018-02-03] MEDS: TEMAZEPAM 30 MG CAP PO SCH (22:21)
[2018-02-04] MEDS: CLINDAMYCIN 600 MG in DEXTROSE 5% IN WATER 50 ML IVPB SCH ×8 (00:41→17:29)
[2018-02-04 00:59] LABS: Glucose,Whole Blood 151 mg/dL (75-99)
[2018-02-04] MEDS: INSULIN ASPART 100 UNIT/ML 1 ML 10 ML VIAL SQ SCH ×4 (01:18→18:28)
[2018-02-04] MEDS: methylPREDNISolone SOD SUCCI 125 MG/2 ML VIAL IV SCH ×4 (01:22→17:21)
[2018-02-04] MEDS: HYDROcodone/APAP 10-325MG 1 EACH TAB PO PRN ×4 (05:17→23:13)
[2018-02-04] MEDS: guaiFENesin-DM 100-10MG/5ML 10 ML CUP PO PRN ×4 (05:17→23:13)
[2018-02-04 07:08] LABS: Glucose,Whole Blood 133 mg/dL (75-99)
[2018-02-04 07:53] LABS: Basophils % (A) 0 %; Eosinophils % (A) 0 %; Hypochromasia Moderate; Lymphocytes # (A) 0.8 k/uL (1.0-4.8); Lymphocytes % (A) 6 %; MCH 29.5 pg (25.0-35.0); MCHC 30.4 g/dL (31.0-37.0); Mean Platelet Volume 7.3; Monocytes # (A) 0.8 k/uL (0-1.0); Monocytes % (A) 6 %; Neutrophils # (A) 11.4 k/uL (1.3-7.7); Neutrophils % (A) 87 %; Platelet Count 323 k/uL (150-450); RDW 14.2 % (11.5-15.5)
[2018-02-04] MEDS: CARVEDILOL 12.5 MG TAB PO SCH ×2 (07:56→17:22)
[2018-02-04] MEDS: SPIRONOLACTONE 25 MG TAB PO SCH (07:56)
[2018-02-04] MEDS: POLYETHYLENE GLYCOL 3350 17 GM POWD.PACK PO SCH (07:56)
[2018-02-04] MEDS: LOSARTAN 25 MG TAB PO SCH (07:56)
[2018-02-04] MEDS: ASPIRIN 81 MG PO SCH (07:57)
[2018-02-04] MEDS: PANTOPRAZOLE 40 MG TABLET PO SCH (07:57)
[2018-02-04] MEDS: guaiFENesin 600 MG TABLET.ER PO SCH ×2 (07:57→21:25)
[2018-02-04] MEDS: GLYCOPYRROLATE 1 MG TAB PO SCH ×3 (07:57→21:25)
[2018-02-04] MEDS: AZITHROMYCIN 500 MG TAB PO SCH (07:57)
[2018-02-04] MEDS: cefTRIAXone IN SWFI 1,000 MG/10 ML SYRINGE IVP SCH (07:59)
[2018-02-04] MEDS: BUDESONIDE 0.5 MG/2 ML NEBU INHALATION SCH ×2 (08:27→19:52)
[2018-02-04] MEDS: IPRATROPIUM-ALBUTEROL 3 ML NEB INHALATION SCH ×4 (08:27→19:52)
[2018-02-04 08:28] LABS: ALT 38 U/L (9-52); AST 26 U/L (14-36); Albumin 2.6 g/dL (3.5-5.0); Alkaline Phosphatase 137 U/L (38-126); Anion Gap 6 mmol/L; Blood Urea Nitrogen 14 mg/dL (7-17); Calcium 9.2 mg/dL (8.4-10.2); Carbon Dioxide 24 mmol/L (22-30); Chloride 109 mmol/L (98-107); Glucose 123 mg/dL (74-99); Potassium 4.9 mmol/L (3.5-5.1); Sodium 139 mmol/L (137-145); Total Bilirubin 0.2 mg/dL (0.2-1.3); Total Protein 5.3 g/dL (6.3-8.2)
[2018-02-04 11:58] LABS: Glucose,Whole Blood 130 mg/dL (75-99)
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
--- NOTE | 2018-02-04 13:03 | PN ---
PROGRESS NOTE DATE OF SERVICE: 02/04/2018. She has shallow respirations, is in no distress. On physical examination: Respiratory rate is 17, pulse rate is 77, blood pressure 108/54, temperature 98, O2 saturation on 5 L by nasal cannula is 91%. HEENT reveals pupils are equal. Tracheostomy scar is seen in the neck. Chest reveals rhonchi on the left side with decreased breath sounds bilaterally. Cardiovascular system reveals an S1, S2. Abdomen is soft. [place] [address], hemoglobin of 10. Sodium 139, potassium 4.9, chloride 109 , bicarb 24, BUN 14, creatinine 0.37. Pleural fluid does not show any growth as far as bacteria as concerned. IMPRESSION: At this time: 1. Aspiration pneumonia. 2. Acute respiratory failure. 3. Muscular dystrophy. 4. Medical debility. At this point in time continue antibiotics. Follow cultures. May benefit from Vest treatment as well as cough assist device as an outpatient. May benefit from pulmonary rehab as well. Did middle school counselor this to both her and her. They have a fair understanding of our recommendations. MMODL / IJN: [id number] / LYNDA
[2018-02-04 18:28] LABS: Glucose,Whole Blood 146 mg/dL (75-99)
[2018-02-04] MEDS: MONTELUKAST 10 MG TAB PO SCH (21:25)
[2018-02-04] MEDS: TEMAZEPAM 30 MG CAP PO SCH (21:26)
[2018-02-04 23:53] LABS: Glucose,Whole Blood 126 mg/dL (75-99)
[2018-02-05] MEDS: INSULIN ASPART 100 UNIT/ML 1 ML 10 ML VIAL SQ SCH ×4 (00:02→18:09)
[2018-02-05] MEDS: methylPREDNISolone SOD SUCCI 125 MG/2 ML VIAL IV SCH ×2 (00:05→05:26)
[2018-02-05] MEDS: CLINDAMYCIN 600 MG in DEXTROSE 5% IN WATER 50 ML IVPB SCH ×10 (00:05→23:42)
[2018-02-05] MEDS: HYDROcodone/APAP 10-325MG 1 EACH TAB PO PRN ×3 (05:26→19:48)
[2018-02-05] MEDS: guaiFENesin-DM 100-10MG/5ML 10 ML CUP PO PRN ×3 (05:26→19:49)
[2018-02-05 06:14] LABS: Glucose,Whole Blood 158 mg/dL (75-99)
[2018-02-05] MEDS ORDERED: HYDROcodone/APAP 10-325MG 1 EACH TAB PO ONE (07:33)
[2018-02-05] MEDS: LOSARTAN 25 MG TAB PO SCH (07:42)
[2018-02-05] MEDS: SPIRONOLACTONE 25 MG TAB PO SCH (07:42)
[2018-02-05] MEDS: GLYCOPYRROLATE 1 MG TAB PO SCH ×3 (07:43→22:25)
[2018-02-05] MEDS: ASPIRIN 81 MG PO SCH (07:43)
[2018-02-05] MEDS: guaiFENesin 600 MG TABLET.ER PO SCH ×2 (07:43→22:25)
[2018-02-05] MEDS: PANTOPRAZOLE 40 MG TABLET PO SCH (07:43)
[2018-02-05] MEDS: AZITHROMYCIN 500 MG TAB PO SCH (07:43)
[2018-02-05] MEDS: CARVEDILOL 12.5 MG TAB PO SCH ×2 (07:43→17:58)
[2018-02-05] MEDS: BUDESONIDE 0.5 MG/2 ML NEBU INHALATION SCH ×2 (07:45→20:26)
[2018-02-05] MEDS: IPRATROPIUM-ALBUTEROL 3 ML NEB INHALATION SCH ×4 (07:46→20:26)
[2018-02-05 07:55] LABS: Basophils % (A) 0 %; Eosinophils % (A) 0 %; HCT 31.8 % (34.0-46.0); Lymphocytes % (A) 8 %; MCH 29.6 pg (25.0-35.0); MCHC 31.5 g/dL (31.0-37.0); MCV 93.7 fL (80.0-100.0); Mean Platelet Volume 6.8; Monocytes % (A) 8 %; Neutrophils # (A) 10.4 k/uL (1.3-7.7); Neutrophils % (A) 83 %; Platelet Count 435 k/uL (150-450); RBC 3.39 m/uL (3.80-5.40); RDW 14.2 % (11.5-15.5); WBC 12.6 k/uL (3.8-10.6)
[2018-02-05] MEDS: cefTRIAXone IN SWFI 1,000 MG/10 ML SYRINGE IVP SCH (08:19)
[2018-02-05 08:21] LABS: ALT 29 U/L (9-52); AST 16 U/L (14-36); Albumin 2.5 g/dL (3.5-5.0); Alkaline Phosphatase 126 U/L (38-126); Anion Gap 5 mmol/L; Blood Urea Nitrogen 17 mg/dL (7-17); Carbon Dioxide 30 mmol/L (22-30); Chloride 105 mmol/L (98-107); Glucose 111 mg/dL (74-99); Potassium 4.2 mmol/L (3.5-5.1); Sodium 140 mmol/L (137-145); Total Bilirubin 0.1 mg/dL (0.2-1.3); Total Protein 5.1 g/dL (6.3-8.2)
--- NOTE | 2018-02-05 11:13 | P.PN ---
Subjective Patient is admitted for aspiration pneumonia patient is on Rocephin kanamycin and azithromycin and do not believe patient is otherwise is necessary. His voice and will discuss reviewed and the patient is also on systemic steroids this is being managed by information management manager. Not sure whether she needs a such a high dose of steroids. We'll cut down the dose of steroids. 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 Dr. Crespo her primary doctor who knows the patient will will further discuss regarding this with the family tomorrow Objective - Vital Signs Vital signs: Vital Signs Temp 97 F L 02/05/18 06:03 Pulse 86 02/05/18 07:45 Resp 18 02/05/18 06:03 BP 125/50 02/05/18 07:45 Pulse Ox 99 02/05/18 06:03 Intake & Output 02/04/18 02/05/18 02/05/18 18:59 06:59 18:59 Intake Total 560 Balance 560 Weight 59 kg Intake: IV 80 0.9@20 80 Tube Feeding 480 Other: Voiding Method Bedside Commode Bedside Commode Bedside Commode # Voids 1 1 # Bowel Movements 1 - Exam PHYSICAL EXAMINATION: GENERAL: The patient is alert and oriented x3, not in any acute distress. Thin built mostly nonverbal HEENT: Pupils are round and equally reacting to light. EOMI. No scleral icterus. No conjunctival pallor. Normocephalic, atraumatic. No pharyngeal erythema. No thyromegaly. CARDIOVASCULAR: S1 and S2 present. No murmurs, rubs, or gallops. PULMONARY: Chest is clear to auscultation, no wheezing or crackles. ABDOMEN: Soft, nontender, nondistended, normoactive bowel sounds. No palpable organomegaly. MUSCULOSKELETAL: No joint swelling or deformity. EXTREMITIES: No cyanosis, clubbing, or pedal edema. NEUROLOGICAL: Weakness and muscle atrophy due to muscular dystrophy SKIN: No rashes. - Labs CBC & Chem 7: 02/05/18 07:05 02/05/18 07:05 Labs: Abnormal Lab Results - Last 24 Hours (Table) 02/04/18 02/04/18 02/04/18 Range/Units 11:56 18:13 23:52 WBC (3.8-10.6) k/uL RBC (3.80-5.40) m/uL Hgb (11.4-16.0) gm/dL Hct (34.0-46.0) % Neutrophils # (1.3-7.7) k/uL Creatinine (0.52-1.04) mg/dL Glucose (74-99) mg/dL POC Glucose (mg/dL) 130 H 146 H 126 H (75-99) mg/dL Total Bilirubin (0.2-1.3) mg/dL Total Protein (6.3-8.2) g/dL Albumin (3.5-5.0) g/dL 02/05/18 02/05/18 02/05/18 Range/Units 06:12 07:05 07:05 WBC 12.6 H (3.8-10.6) k/uL RBC 3.39 L (3.80-5.40) m/uL Hgb 10.0 L (11.4-16.0) gm/dL Hct 31.8 L (34.0-46.0) % Neutrophils # 10.4 H (1.3-7.7) k/uL Creatinine 0.39 L (0.52-1.04) mg/dL Glucose 111 H (74-99) mg/dL POC Glucose (mg/dL) 158 H (75-99) mg/dL Total Bilirubin 0.1 L (0.2-1.3) mg/dL Total Protein 5.1 L (6.3-8.2) g/dL Albumin 2.5 L (3.5-5.0) g/dL Microbiology - Last 24 Hours (Table) 02/01/18 06:51 Blood Culture - Preliminary Blood No Growth after 96 hours 02/01/18 02:48 Blood Culture - Preliminary Blood No Growth after 96 hours 02/03/18 13:53 Gram Stain - Preliminary Pleural Fluid Body Fluid Culture - Preliminary Assessment and Plan Plan: Assessment and Plan Assessment: 1. Pneumonia possibly aspiration n board and recommending ultrasound of the chest to follow-up on pleural effusion Doppler bilateral lower extremity is negative for DVT - Continue with pulmonary hygiene, cough and deep breathing exercises, incentive spirometry and supportive care CTA showed moderate left pleural effusion small right pleural effusion atelectasis - Continue with supplemental oxygen to maintain oxygen saturation greater than 92% - Patient remains on nebulizer treatments with bronchodilators and steroids - Pulmonary recommending chest PT 2. Bilateral pleural effusion - As above patient is to receive ultrasound of the chest for evaluation of pleural effusion - Pulmonary service is following and further recommendations are pending 3. Acute hypoxic respiratory failure requiring supplemental oxygen - We will continue with oxygen per nasal cannula to keep oxygen saturation greater than 92% - Continue with nebulizer treatments with bronchodilators and steroids 4. Tracheobronchitis; patient remains on IV antibiotics and nebulizer treatments , Patient to does not have asthma exacerbation of COPD exacerbation may not benefit from steroids will cut down the doses of steroids 5. Muscular dystrophy/dysphagia - We will consult PT and OT increase activity as tolerated - Social work consult is done for transition of care 6. Hypertension; controlled on losartan 12.5 mg daily
[2018-02-05 12:16] LABS: Glucose,Whole Blood 127 mg/dL (75-99)
--- NOTE | 2018-02-05 13:40 | PN ---
PROGRESS NOTE DATE OF SERVICE: 02/05/2018 She continues to have some shortness of breath. She has a four cough. On physical examination, respiratory rate is 18, pulse of 86, blood pressure 100/80, O2 saturation on 5 L by nasal cannula is in the low 90s. HEENT is unremarkable. Chest reveals rhonchi and decreased breath sounds bilaterally, more decreased on the left than the right. Cardiovascular system is S1, S2. Abdomen is soft. There is no edema. Fluid from the thoracentesis does not show any bacteria. IMPRESSION: At this time is: 1. Aspiration pneumonia. 2. Muscular dystrophy. At this point in time, patient's prognosis short-term and long-term is guarded. However, she is slowly improving. Would continue her on antibiotics and bronchodilators. She would benefit from pulmonary rehab, cough assist device and smart Vest as an outpatient. I did pet adoption counselor her regarding the devices and the utility of pulmonary rehab. He has a fair understanding of these recommendations. MMODL / IJN: [id number] /
[2018-02-05 17:36] LABS: Glucose,Whole Blood 131 mg/dL (75-99)
[2018-02-05] MEDS: MONTELUKAST 10 MG TAB PO SCH (22:25)
[2018-02-05] MEDS: methylPREDNISolone SOD SUCCI 40 MG/ML 1 ML VIAL IV SCH (22:25)
[2018-02-05] MEDS: TEMAZEPAM 30 MG CAP PO SCH (23:42)
[2018-02-05 23:55] LABS: Glucose,Whole Blood 84 mg/dL (75-99)
[2018-02-06] MEDS: INSULIN ASPART 100 UNIT/ML 1 ML 10 ML VIAL SQ SCH ×4 (01:13→18:06)
[2018-02-06] MEDS: guaiFENesin-DM 100-10MG/5ML 10 ML CUP PO PRN ×2 (03:25→18:22)
[2018-02-06] MEDS: HYDROcodone/APAP 10-325MG 1 EACH TAB PO PRN ×5 (03:25→21:57)
[2018-02-06] MEDS: CLINDAMYCIN 600 MG in DEXTROSE 5% IN WATER 50 ML IVPB SCH ×8 (05:58→23:59)
[2018-02-06 06:07] LABS: Glucose,Whole Blood 146 mg/dL (75-99)
[2018-02-06 07:26] LABS: HCT 36.2 % (34.0-46.0); HGB 11.4 gm/dL (11.4-16.0); MCH 29.7 pg (25.0-35.0); MCHC 31.6 g/dL (31.0-37.0); MCV 93.9 fL (80.0-100.0); Mean Platelet Volume 7.2; Platelet Count 469 k/uL (150-450); RBC 3.85 m/uL (3.80-5.40); RDW 14.1 % (11.5-15.5); WBC 15.5 k/uL (3.8-10.6)
[2018-02-06 07:37] LABS: ALT 28 U/L (9-52); AST 28 U/L (14-36); Albumin 3.1 g/dL (3.5-5.0); Alkaline Phosphatase 111 U/L (38-126); Anion Gap 7 mmol/L; Blood Urea Nitrogen 14 mg/dL (7-17); Calcium 9.6 mg/dL (8.4-10.2); Carbon Dioxide 26 mmol/L (22-30); Chloride 106 mmol/L (98-107); Glucose 131 mg/dL (74-99); Sodium 139 mmol/L (137-145); Total Bilirubin 0.5 mg/dL (0.2-1.3); Total Protein 6.3 g/dL (6.3-8.2)
[2018-02-06 07:43] LABS: Potassium 5.1 mmol/L (3.5-5.1)
[2018-02-06 08:01] LABS: Band Neutrophils % 4 %; Metamyelocytes # (M) 0.47 k/uL (0); Metamyelocytes % 3 %; Monocytes # (M) 0.78 k/uL (0-1.0); Myelocytes # (M) 0.31 k/uL (0); Myelocytes % 2 %; Neutrophils % (M) 79 %; Nucleated Red Blood Cells 0 /100 WBC (0-0); Total Cells Counted 200
[2018-02-06] MEDS: SPIRONOLACTONE 25 MG TAB PO SCH (08:05)
[2018-02-06] MEDS: PANTOPRAZOLE 40 MG TABLET PO SCH (08:06)
[2018-02-06] MEDS: ASPIRIN 81 MG PO SCH (08:06)
[2018-02-06] MEDS: GLYCOPYRROLATE 1 MG TAB PO SCH ×3 (08:06→21:36)
[2018-02-06] MEDS: methylPREDNISolone SOD SUCCI 40 MG/ML 1 ML VIAL IV SCH ×2 (08:07→21:36)
[2018-02-06] MEDS: guaiFENesin 600 MG TABLET.ER PO SCH ×2 (08:07→21:36)
[2018-02-06] MEDS: CARVEDILOL 12.5 MG TAB PO SCH ×2 (08:07→17:28)
[2018-02-06] MEDS: IPRATROPIUM-ALBUTEROL 3 ML NEB INHALATION SCH ×4 (08:52→19:56)
[2018-02-06] MEDS: BUDESONIDE 0.5 MG/2 ML NEBU INHALATION SCH ×2 (08:52→19:56)
[2018-02-06 11:40] LABS: Glucose,Whole Blood 139 mg/dL (75-99)
[2018-02-06] MEDS: DEXTROSE 5%-0.45% NACL 1,000 ML IV SCH (14:16)
--- NOTE | 2018-02-06 15:55 | XR ---
EXAMINATION TYPE: XR abdomen 2V DATE OF EXAM: 02/06/2018 COMPARISON: 02/03/2018 HISTORY: PEG tube placement TECHNIQUE: One view abdominal series FINDINGS: The osseous structures are intact. The bowel gas pattern is nonspecific. There are bilateral infiltr ates and pleural effusions. PEG tube is seen overlying the left upper quadrant. There is a paucity of bowel gas. IMPRESSION: 1. PEG tube overlying left upper quadrant similar appearance to the prior exam. 2. Bilateral infiltrate and pleural effusion. 3. Nonspecific gas pattern. There is a paucity of bowel gas which can be seen with generalized ileus or obstruction.
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
[2018-02-06 17:49] LABS: Glucose,Whole Blood 147 mg/dL (75-99)
--- NOTE | 2018-02-06 18:32 | P.PN ---
Subjective Principal diagnosis: Pneumonia with hypoxia. The patient is here essentially because of pneumonia. No new complaints except for cough which is improving. Some dietary issues. Objective - Vital Signs Vital signs: Vital Signs Temp 97.2 F L 02/06/18 14:53 Pulse 62 02/06/18 15:47 Resp 18 02/06/18 15:47 BP 124/71 02/06/18 14:53 Pulse Ox 99 02/06/18 14:53 Intake & Output 02/05/18 02/06/18 02/06/18 18:59 06:59 18:59 Intake Total 210 445 Balance 210 445 Weight 58 kg 58 kg Intake: IV 70 100 0.9@20 70 100 Intake, IV Titration 275 Amount Clindamycin 600 mg In 200 Dextrose 5% in Water 50 ml @ 100 mls/hr IVPB Q6HR [facility] Rx#:[id number] Dextrose 5%-0.45% NaCl 1, 75 000 ml @ 75 mls/hr IV . [id number] [facility] Rx#:[id number] Tube Feeding 140 70 Other: Voiding Method Bedside Commode Bedside Commode Bedside Commode # Voids 1 1 1 # Bowel Movements 1 1 - Constitutional General appearance: Present: thin - Respiratory Respiratory: bilateral: diminished - Cardiovascular Rhythm: regular Heart sounds: normal: S1, S2 Abnormal Heart Sounds: Absent: S3 Gallop - Gastrointestinal General gastrointestinal: Present: soft. Absent: tenderness - Musculoskeletal Musculoskeletal: Present: generalized weakness - Labs CBC & Chem 7: 02/06/18 06:53 02/06/18 06:53 Labs: Abnormal Lab Results - Last 24 Hours (Table) 02/06/18 02/06/18 02/06/18 Range/Units 05:57 06:53 06:53 WBC 15.5 H (3.8-10.6) k/uL Plt Count 469 H (150-450) k/uL Neutrophils # (Manual) 12.80 H (1.3-7.7) k/uL Metamyelocytes # (Man) 0.47 H (0) k/uL Myelocytes # (Manual) 0.31 H (0) k/uL Creatinine 0.39 L (0.52-1.04) mg/dL Glucose 131 H (74-99) mg/dL POC Glucose (mg/dL) 146 H (75-99) mg/dL Albumin 3.1 L (3.5-5.0) g/dL 02/06/18 02/06/18 Range/Units 11:39 17:46 WBC (3.8-10.6) k/uL Plt Count (150-450) k/uL Neutrophils # (Manual) (1.3-7.7) k/uL Metamyelocytes # (Man) (0) k/uL Myelocytes # (Manual) (0) k/uL Creatinine (0.52-1.04) mg/dL Glucose (74-99) mg/dL POC Glucose (mg/dL) 139 H 147 H (75-99) mg/dL Albumin (3.5-5.0) g/dL Microbiology - Last 24 Hours (Table) 02/01/18 06:51 Blood Culture - Preliminary Blood No Growth after 120 hours 02/01/18 02:48 Blood Culture - Preliminary Blood No Growth after 120 hours 02/03/18 13:53 Anaerobic Culture - Preliminary Thoracentesis Fluid 02/03/18 13:53 Gram Stain - Preliminary Pleural Fluid Body Fluid Culture - Preliminary Assessment and Plan (1) Community acquired pneumonia Current Visit: No Status: Acute Code(s): J18.9 - PNEUMONIA, UNSPECIFIED ORGANISM SNOMED Code(s): 303024187 (2) Muscular dystrophy Current Visit: No Status: Acute Code(s): G71.0 - MUSCULAR DYSTROPHY SNOMED Code(s): 67387774 (3) Nonischemic cardiomyopathy Current Visit: No Status: Ruled-out Code(s): I42.8 - OTHER CARDIOMYOPATHIES SNOMED Code(s): 78523433 Plan: Continue current regimen of treatment. Check CBC and CMP in a.m. New. Her nutritional status will be addressed. See orders otherwise.
[2018-02-06] MEDS: METOCLOPRAMIDE 5 MG/ML 2 ML VIAL IVP SCH (19:23)
[2018-02-06] MEDS: MONTELUKAST 10 MG TAB PO SCH (21:36)
[2018-02-06] MEDS: TEMAZEPAM 30 MG CAP PO SCH (21:57)
[2018-02-07 00:57] LABS: Glucose,Whole Blood 127 mg/dL (75-99)
[2018-02-07] MEDS: INSULIN ASPART 100 UNIT/ML 1 ML 10 ML VIAL SQ SCH ×5 (01:50→23:55)
[2018-02-07] MEDS: HYDROcodone/APAP 10-325MG 1 EACH TAB PO PRN ×5 (03:55→20:44)
[2018-02-07] MEDS: DEXTROSE 5%-0.45% NACL 1,000 ML IV SCH ×2 (03:59→17:12)
[2018-02-07] MEDS: METOCLOPRAMIDE 5 MG/ML 2 ML VIAL IVP SCH ×4 (05:57→18:09)
[2018-02-07] MEDS: CLINDAMYCIN 600 MG in DEXTROSE 5% IN WATER 50 ML IVPB SCH ×6 (05:57→18:09)
[2018-02-07 06:05] LABS: Glucose,Whole Blood 148 mg/dL (75-99)
[2018-02-07] MEDS: IPRATROPIUM-ALBUTEROL 3 ML NEB INHALATION SCH ×4 (07:23→19:37)
[2018-02-07] MEDS: BUDESONIDE 0.5 MG/2 ML NEBU INHALATION SCH ×2 (07:23→19:37)
[2018-02-07] MEDS: SPIRONOLACTONE 25 MG TAB PO SCH (08:22)
[2018-02-07] MEDS: methylPREDNISolone SOD SUCCI 40 MG/ML 1 ML VIAL IV SCH ×2 (08:22→20:45)
[2018-02-07] MEDS: CARVEDILOL 12.5 MG TAB PO SCH ×2 (08:22→17:16)
[2018-02-07] MEDS: guaiFENesin 600 MG TABLET.ER PO SCH ×2 (08:24→20:43)
[2018-02-07] MEDS: PANTOPRAZOLE 40 MG TABLET PO SCH (08:24)
[2018-02-07] MEDS: ASPIRIN 81 MG PO SCH (08:24)
[2018-02-07 08:25] LABS: HCT 32.8 % (34.0-46.0); HGB 10.2 gm/dL (11.4-16.0); MCH 28.9 pg (25.0-35.0); MCHC 31.1 g/dL (31.0-37.0); Mean Platelet Volume 6.6; Platelet Count 511 k/uL (150-450); RBC 3.53 m/uL (3.80-5.40); RDW 14.4 % (11.5-15.5); WBC 12.9 k/uL (3.8-10.6)
[2018-02-07] MEDS: POLYETHYLENE GLYCOL 3350 17 GM POWD.PACK PO SCH ×2 (08:25→17:08)
[2018-02-07] MEDS: GLYCOPYRROLATE 1 MG TAB PO SCH ×3 (08:25→20:44)
[2018-02-07 08:43] LABS: Albumin 2.9 g/dL (3.5-5.0); Anion Gap 5 mmol/L; Carbon Dioxide 29 mmol/L (22-30); Chloride 105 mmol/L (98-107); Glucose 127 mg/dL (74-99); Sodium 139 mmol/L (137-145); Total Bilirubin 0.3 mg/dL (0.2-1.3); Total Protein 5.6 g/dL (6.3-8.2)
[2018-02-07 08:49] LABS: Potassium 4.3 mmol/L (3.5-5.1)
[2018-02-07 08:50] LABS: ALT 30 U/L (9-52); AST 23 U/L (14-36); Alkaline Phosphatase 87 U/L (38-126); Blood Urea Nitrogen 11 mg/dL (7-17)
[2018-02-07 10:59] LABS: Band Neutrophils % 4 %; Lymphocytes # (M) 1.42 k/uL (1.0-4.8); Metamyelocytes # (M) 0.26 k/uL (0); Metamyelocytes % 2 %; Myelocytes # (M) 0.52 k/uL (0); Myelocytes % 4 %; Neutrophils % (M) 73 %; Nucleated Red Blood Cells 0 /100 WBC (0-0); Promyelocytes # (M) 0.13 k/uL (0); Promyelocytes % 1 %; Total Cells Counted 200
[2018-02-07 11:00] LABS: Toxic Granulation Present
[2018-02-07 11:02] LABS: Anisocytosis (M) Present; Mixed Population RBC Present; Poikilocytosis (M) Present
[2018-02-07 11:41] LABS: Glucose,Whole Blood 145 mg/dL (75-99)
--- NOTE | 2018-02-07 15:20 | P.GSCN ---
History of Present Illness Consult date: 02/07/18 History of present illness: 57-year-old female presented to the emergency Department secondary to fever and lethargy. She is known to have a history of muscular dystrophy. The patient was found to have pneumonia and has been treated for pneumonia during her admission. The patient does have a history of dysphagia. Secondary to this the patient has a PEG tube and has tube feedings every night at home. She has been receiving tube feedings while she is here. She is able to tolerate small sips of water. On x-ray yesterday, the patient was found to have some dilated loops of bowel. The patient was found to likely have an ileus. According to the patient, she has not had a bowel movement in approximately 2 days. She also states she has not been passing any gas. She denies any nausea or emesis episodes. She is tolerating the tube feedings that have been provided for her. She is on a laxative every 3 days at home for help with bowel function. She has no additional complaints at this time. Review of Systems All systems: negative Past Medical History Past Medical History: Heart Failure, GERD/Reflux, Musculoskeletal Disorder Additional Past Medical History / Comment(s): myotonic muscular dystrophy, nonischemic cardiomyopathy, pneumonias, chronic L lung infiltrate, dysphagia/ peg tube-takes very little orally/alittle water/pills crushed thru peg, hx of cervical fx several years ago due to injury - chronic neck pain, constipation. History of Any Multi-Drug Resistant Organisms: None Reported Additional Past Surgical History / Comment(s): peg tubes - most recent placed , bilateral cataract surg./blepharoplasty, jaw surgery, trach 1998 - since removed Past Anesthesia/Blood Transfusion Reactions: Postoperative Nausea & Vomiting ( PONV) Additional Past Anesthesia/Blood Transfusion Reaction / Comm: slow to wake up Smoking Status: Never smoker - Past Family History Father Family Medical History: Congestive Heart Failure (CHF) Additional Family Medical History / Comment(s): Father of CHF in his 70s. Mother Family Medical History: No Reported History Medications and Allergies Home Medications Medication Instructions Recorded Confirmed Type Glycopyrrolate [Robinul] 1 mg PO TID 11/20/15 02/01/18 History Melatonin 3 mg PO HS PRN 11/20/15 02/01/18 History Carvedilol [Coreg] 12.5 mg PO BID 10/28/17 07/18/18 History HYDROcodone/APAP 10-325MG [[place] 1 tab PO Q6H PRN 11/13/17 02/01/18 History 10-325] Losartan [Cozaar] 12.5 mg PO DAILY 11/13/17 02/01/18 History Omeprazole [PriLOSEC] 40 mg PO DAILY 11/13/17 02/01/18 History Polyethylene Glycol 3350 [Miralax] 17 gm PO Q3D 11/13/17 02/01/18 History Temazepam 30 mg PO HS 11/13/17 02/01/18 History diphenhydrAMINE [Benadryl] 25 mg PO Q6H PRN 11/13/17 02/01/18 History Aspirin 81 mg PO DAILY chew 11/15/17 02/01/18 Rx Spironolactone [Aldactone] 12.5 mg PO DAILY #30 tab 11/15/17 02/01/18 Rx guaiFENesin-DM 100-10MG/5ML 10 ml PO Q6H PRN 02/01/18 02/01/18 History [Robitussin DM] Allergies Allergy/AdvReac Type Severity Reaction Status Date / Time No Known Allergies Allergy Verified 11/13/17 12:40 Surgical - Exam Osteopathic Statement: *. No significant issues noted on an osteopathic structural exam other than those noted in the History and Physical/Consult. Vital Signs Pulse Resp BP Pulse Ox 69 20 89/51 96 02/01/18 05:30 02/01/18 05:30 02/01/18 05:30 02/01/18 05:30 - General no distress - Eyes normal ocular movement - ENT decreased hearing - Neck trachea midline - Respiratory normal respiratory effort - Abdomen Soft, nontender, nondistended, no rebound, no guarding, PEG tube in place - Psychiatric oriented to time, oriented to person, oriented to place Results - Labs 02/07/18 07:56 02/07/18 07:56 Abnormal Lab Results - Last 24 Hours (Table) 02/06/18 02/07/18 02/07/18 Range/Units 17:46 00:54 05:56 WBC (3.8-10.6) k/uL RBC (3.80-5.40) m/uL Hgb (11.4-16.0) gm/dL Hct (34.0-46.0) % Plt Count (150-450) k/uL Neutrophils # (Manual) (1.3-7.7) k/uL Metamyelocytes # (Man) (0) k/uL Myelocytes # (Manual) (0) k/uL Promyelocytes # (Man) (0) k/uL Creatinine (0.52-1.04) mg/dL Glucose (74-99) mg/dL POC Glucose (mg/dL) 147 H 127 H 148 H (75-99) mg/dL Total Protein (6.3-8.2) g/dL Albumin (3.5-5.0) g/dL 02/07/18 02/07/18 02/07/18 Range/Units 07:56 07:56 11:39 WBC 12.9 H (3.8-10.6) k/uL RBC 3.53 L (3.80-5.40) m/uL Hgb 10.2 L (11.4-16.0) gm/dL Hct 32.8 L (34.0-46.0) % Plt Count 511 H (150-450) k/uL Neutrophils # (Manual) 9.90 H (1.3-7.7) k/uL Metamyelocytes # (Man) 0.26 H (0) k/uL Myelocytes # (Manual) 0.52 H (0) k/uL Promyelocytes # (Man) 0.13 H (0) k/uL Creatinine 0.36 L (0.52-1.04) mg/dL Glucose 127 H (74-99) mg/dL POC Glucose (mg/dL) 145 H (75-99) mg/dL Total Protein 5.6 L (6.3-8.2) g/dL Albumin 2.9 L (3.5-5.0) g/dL Microbiology - Last 24 Hours (Table) 02/01/18 06:51 Blood Culture - Final Blood No Growth after 144 hours 02/01/18 02:48 Blood Culture - Final Blood No Growth after 144 hours 02/03/18 13:53 Gram Stain - Preliminary Pleural Fluid Body Fluid Culture - Preliminary Diabetes panel 02/07/18 Range/Units 07:56 Sodium 139 (137-145) mmol/L Potassium 4.3 (3.5-5.1) mmol/L Chloride 105 (98-107) mmol/L Carbon Dioxide 29 (22-30) mmol/L BUN 11 (7-17) mg/dL Creatinine 0.36 L (0.52-1.04) mg/dL Glucose 127 H (74-99) mg/dL Calcium 9.0 (8.4-10.2) mg/dL AST 23 (14-36) U/L ALT 30 (9-52) U/L Alkaline Phosphatase 87 (38-126) U/L Total Protein 5.6 L (6.3-8.2) g/dL Albumin 2.9 L (3.5-5.0) g/dL Calcium panel 02/07/18 Range/Units 07:56 Calcium 9.0 (8.4-10.2) mg/dL Albumin 2.9 L (3.5-5.0) g/dL Pituitary panel 02/07/18 Range/Units 07:56 Sodium 139 (137-145) mmol/L Potassium 4.3 (3.5-5.1) mmol/L Chloride 105 (98-107) mmol/L Carbon Dioxide 29 (22-30) mmol/L BUN 11 (7-17) mg/dL Creatinine 0.36 L (0.52-1.04) mg/dL Glucose 127 H (74-99) mg/dL Calcium 9.0 (8.4-10.2) mg/dL Adrenal panel 02/07/18 Range/Units 07:56 Sodium 139 (137-145) mmol/L Potassium 4.3 (3.5-5.1) mmol/L Chloride 105 (98-107) mmol/L Carbon Dioxide 29 (22-30) mmol/L BUN 11 (7-17) mg/dL Creatinine 0.36 L (0.52-1.04) mg/dL Glucose 127 H (74-99) mg/dL Calcium 9.0 (8.4-10.2) mg/dL Total Bilirubin 0.3 (0.2-1.3) mg/dL AST 23 (14-36) U/L ALT 30 (9-52) U/L Alkaline Phosphatase 87 (38-126) U/L Total Protein 5.6 L (6.3-8.2) g/dL Albumin 2.9 L (3.5-5.0) g/dL - Imaging Abdominal x-ray: report reviewed, image reviewed (Distended loops of bowel, concerning for ileus) Assessment and Plan (1) Ileus Narrative/Plan: 57-year-old female with ileus likely secondary to infectious process, pneumonia - Patient denies any nausea or emesis, will provide patient laxative for assistance with motility - Continue bolus tube feeding - Further recommendations throughout the patient's admission Thank you for this consultation, I look forward in providing in this patient's care Current Visit: Yes Status: Acute Code(s): K56.7 - ILEUS, UNSPECIFIED SNOMED Code(s): 957077566
[2018-02-07 17:00] LABS: Glucose,Whole Blood 119 mg/dL (75-99)
--- NOTE | 2018-02-07 17:51 | P.PN ---
Subjective Progress Note Date: 02/07/18 Principal diagnosis: Aspiration pneumonia, bilateral pleural effusion, acute hypoxic respiratory failure, muscular dystrophy, hypertension hypertensive cardiovascular disease, status post thoracentesis is only 1 30 mL of fluid was removed, Gram stain and cultures are negative, ileus 02/07/2018, patient seen eval reexamined during the rounds clinically doing slightly better in terms of breathing patient is now off of oxygen on room air breathing comfortably no obvious distress present saturation have been stable patient has been found to have ileus-like Petrin with some bowel loops and distention general surgery has evaluated the patient and recommended continue bolus feed and observe, her white cell count continued decline the and now 12, 900 down from 15,000 yesterday yesterday, hemoglobin have been stable, potassium is 4.3 This is a 57-year-old female patient being seen examined and evaluated today came into the hospital with lethargy and fevers at home. 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 The patient does have a swallowing deficit and has had a PEG tube. Most of her nutrition is through her feeding tube however she does occasionally take sips of water and sometimes will have an occasional 2 or 3 cheese puffs at night before bed. She also has had a trach in the past as well she was in a [facility] and 98. She was also diagnosed by her neurologist with muscular dystrophy, she follows with Dr. Lobato and [place] [facility] of neurology. Park Warden also notices that her weakness has increased in severity over the last few weeks. During her ER evaluation the patient was noted to have a pneumonia with left lower lung obesity and pleural effusion. Her white count was initially 14.8, her BUN was 31 creatinine is 0.5 and her lactic acid was 2.4 she was slightly hypotensive in the emergency room with blood pressures running systolically 80s over 50s. Patient was admitted to the hospital for further evaluation and workup. Patient did undergo a repeat chest x-ray which did show worsening of her pneumonia and increase in the pleural effusions. Upon examination she is very weak, does have shortness of breath with exertion and activity she is on 5 L of supplemental oxygen she does not wear oxygen at home. She has a congested cough however it is weak and she is unable to bring any secretions. She was noted to have an elevated d-dimer of 2.63. Objective - Vital Signs Vital signs: Vital Signs Temp 97.9 F 02/07/18 14:02 Pulse 69 02/07/18 14:02 Resp 20 02/07/18 14:02 BP 131/82 02/07/18 14:02 Pulse Ox 91 L 02/07/18 14:02 Intake & Output 02/06/18 02/07/18 02/07/18 18:59 06:59 18:59 Intake Total 445 750 Balance 445 750 Weight 58 kg 57 kg Intake: IV 100 0.9@20 100 Intake, IV Titration 275 750 Amount Clindamycin 600 mg In 200 Dextrose 5% in Water 50 ml @ 100 mls/hr IVPB Q6HR [facility] Rx#:[id number] Dextrose 5%-0.45% NaCl 1, 75 750 000 ml @ 75 mls/hr IV . [id number] [facility] Rx#:[id number] Tube Feeding 70 Other: Voiding Method Bedside Commode Bedside Commode Bedside Commode # Voids 1 1 2 # Bowel Movements 1 - Exam GENERAL: The patient is awake and alert cannot be assessed for full orientation , not in any acute distress. Thin built mostly nonverbal HEENT: Pupils are round and equally reacting to light. EOMI. No scleral icterus. No conjunctival pallor. Normocephalic, atraumatic. No pharyngeal erythema. No thyromegaly. CARDIOVASCULAR: S1 and S2 present. No murmurs, rubs, or gallops. PULMONARY: Chest is clear to auscultation, no wheezing or crackles. ABDOMEN: Soft, nontender, nondistended, normoactive bowel sounds. No palpable organomegaly. MUSCULOSKELETAL: No joint swelling or deformity. EXTREMITIES: No cyanosis, clubbing, or pedal edema. NEUROLOGICAL: Weakness and muscle atrophy due to muscular dystrophy, more awake and alert compared to yesterday exam SKIN: No rashes. - Labs CBC & Chem 7: 02/07/18 07:56 02/07/18 07:56 Labs: Abnormal Lab Results - Last 24 Hours (Table) 02/06/18 02/07/18 02/07/18 Range/Units 17:46 00:54 05:56 WBC (3.8-10.6) k/uL RBC (3.80-5.40) m/uL Hgb (11.4-16.0) gm/dL Hct (34.0-46.0) % Plt Count (150-450) k/uL Neutrophils # (Manual) (1.3-7.7) k/uL Metamyelocytes # (Man) (0) k/uL Myelocytes # (Manual) (0) k/uL Promyelocytes # (Man) (0) k/uL Creatinine (0.52-1.04) mg/dL Glucose (74-99) mg/dL POC Glucose (mg/dL) 147 H 127 H 148 H (75-99) mg/dL Total Protein (6.3-8.2) g/dL Albumin (3.5-5.0) g/dL 02/07/18 02/07/18 02/07/18 Range/Units 07:56 07:56 11:39 WBC 12.9 H (3.8-10.6) k/uL RBC 3.53 L (3.80-5.40) m/uL Hgb 10.2 L (11.4-16.0) gm/dL Hct 32.8 L (34.0-46.0) % Plt Count 511 H (150-450) k/uL Neutrophils # (Manual) 9.90 H (1.3-7.7) k/uL Metamyelocytes # (Man) 0.26 H (0) k/uL Myelocytes # (Manual) 0.52 H (0) k/uL Promyelocytes # (Man) 0.13 H (0) k/uL Creatinine 0.36 L (0.52-1.04) mg/dL Glucose 127 H (74-99) mg/dL POC Glucose (mg/dL) 145 H (75-99) mg/dL Total Protein 5.6 L (6.3-8.2) g/dL Albumin 2.9 L (3.5-5.0) g/dL 02/07/18 Range/Units 16:56 WBC (3.8-10.6) k/uL RBC (3.80-5.40) m/uL Hgb (11.4-16.0) gm/dL Hct (34.0-46.0) % Plt Count (150-450) k/uL Neutrophils # (Manual) (1.3-7.7) k/uL Metamyelocytes # (Man) (0) k/uL Myelocytes # (Manual) (0) k/uL Promyelocytes # (Man) (0) k/uL Creatinine (0.52-1.04) mg/dL Glucose (74-99) mg/dL POC Glucose (mg/dL) 119 H (75-99) mg/dL Total Protein (6.3-8.2) g/dL Albumin (3.5-5.0) g/dL Microbiology - Last 24 Hours (Table) 02/01/18 06:51 Blood Culture - Final Blood No Growth after 144 hours 02/01/18 02:48 Blood Culture - Final Blood No Growth after 144 hours 02/03/18 13:53 Gram Stain - Preliminary Pleural Fluid Body Fluid Culture - Preliminary Assessment and Plan Assessment: Aspiration pneumonia Bilateral pleural effusion Acute hypoxic respiratory failure Ileus Generalized weakness and medical debility Bibasilar atelectasis Advanced muscular dystrophy Plan: Continue deep breathing exercise incentive spirometry Titrated oxygen down as tolerated Continue bronchodilators Continue broad-spectrum antibiotics Aspiration precautions DVT and peptic ulcer disease prophylaxis Overall prognosis is guarded Time with Patient: Greater than 30
[2018-02-07 19:39] VITALS: RESP 16
[2018-02-07] MEDS: MONTELUKAST 10 MG TAB PO SCH (20:44)
[2018-02-07] MEDS: TEMAZEPAM 30 MG CAP PO SCH (20:45)
[2018-02-07 23:56] LABS: Glucose,Whole Blood 115 mg/dL (75-99)
[2018-02-08] MEDS: METOCLOPRAMIDE 5 MG/ML 2 ML VIAL IVP SCH ×3 (00:19→12:33)
[2018-02-08] MEDS: CLINDAMYCIN 600 MG in DEXTROSE 5% IN WATER 50 ML IVPB SCH ×8 (00:19→17:48)
[2018-02-08] MEDS: HYDROcodone/APAP 10-325MG 1 EACH TAB PO PRN ×4 (05:14→19:38)
[2018-02-08] MEDS: INSULIN ASPART 100 UNIT/ML 1 ML 10 ML VIAL SQ SCH ×3 (06:12→17:56)
[2018-02-08 06:14] LABS: Glucose,Whole Blood 113 mg/dL (75-99)
[2018-02-08] MEDS: IPRATROPIUM-ALBUTEROL 3 ML NEB INHALATION SCH ×4 (08:38→19:53)
[2018-02-08] MEDS: BUDESONIDE 0.5 MG/2 ML NEBU INHALATION SCH ×2 (08:38→19:53)
[2018-02-08] MEDS: DEXTROSE 5%-0.45% NACL 1,000 ML IV SCH (09:47)
[2018-02-08] MEDS: guaiFENesin 600 MG TABLET.ER PO SCH ×2 (09:48→21:14)
[2018-02-08] MEDS: SPIRONOLACTONE 25 MG TAB PO SCH (09:48)
[2018-02-08] MEDS: GLYCOPYRROLATE 1 MG TAB PO SCH ×3 (09:48→21:14)
[2018-02-08] MEDS: PANTOPRAZOLE 40 MG TABLET PO SCH (09:48)
[2018-02-08] MEDS: methylPREDNISolone SOD SUCCI 40 MG/ML 1 ML VIAL IV SCH (09:49)
[2018-02-08] MEDS: CARVEDILOL 12.5 MG TAB PO SCH ×2 (09:49→17:48)
[2018-02-08] MEDS: ASPIRIN 81 MG PO SCH (09:49)
[2018-02-08] MEDS: POLYETHYLENE GLYCOL 3350 17 GM POWD.PACK PO SCH (09:50)
[2018-02-08 11:50] LABS: Glucose,Whole Blood 126 mg/dL (75-99)
[2018-02-08 14:45] VITALS: BMI 23.0
[2018-02-08] MEDS ORDERED: METOCLOPRAMIDE 5 MG/ML 2 ML VIAL IVP PRN (15:41)
--- NOTE | 2018-02-08 16:29 | P.PN ---
Subjective Progress Note Date: 02/08/18 Patient seen and examined at bedside. States that she had a large bowel movement at 5 AM. She also complained of some nausea over the previous night. The patient did have residuals over 100 mL after 4 hours of tube feeding at 30 mL an hour. At that time, 2 feeding was stopped. Objective - Vital Signs Vital signs: Vital Signs Temp 98 F 02/08/18 15:00 Pulse 70 02/08/18 16:19 Resp 16 02/08/18 15:00 BP 138/77 02/08/18 15:00 Pulse Ox 94 L 02/08/18 15:00 Intake & Output 02/07/18 02/08/18 02/08/18 18:59 06:59 18:59 Intake Total 855 Balance 855 Weight 57.1 kg 57.1 kg Intake: Intake, IV Titration 600 Amount Dextrose 5%-0.45% NaCl 1, 600 000 ml @ 75 mls/hr IV . [id number] [facility] Rx#:[id number] Tube Feeding 230 Other 25 Other: Voiding Method Bedside Commode Bedside Commode Bedside Commode # Voids 2 2 3 # Bowel Movements 1 1 - Constitutional General appearance: Present: cooperative, no acute distress - Respiratory Details: No difficulty with respiration - Gastrointestinal Gastrointestinal Comment(s): Soft, mildly distended, nontender, no rebound, no guarding, PEG tube in place - Musculoskeletal Musculoskeletal: Present: generalized weakness - Psychiatric Psychiatric: Present: A&O x's 3 - Labs CBC & Chem 7: 02/07/18 07:56 02/07/18 07:56 Labs: Abnormal Lab Results - Last 24 Hours (Table) 02/07/18 02/07/18 02/08/18 Range/Units 16:56 23:54 06:11 POC Glucose (mg/dL) 119 H 115 H 113 H (75-99) mg/dL 02/08/18 Range/Units 11:49 POC Glucose (mg/dL) 126 H (75-99) mg/dL Microbiology - Last 24 Hours (Table) 02/03/18 13:53 Anaerobic Culture - Final Thoracentesis Fluid 02/03/18 13:53 Gram Stain - Final Pleural Fluid Body Fluid Culture - Final Assessment and Plan (1) Ileus Narrative/Plan: 57-year-old female with ileus likely secondary to infectious process, pneumonia - Ileus appears to be resolving with 2 bowel movements over the past day - Restart tube feeding, begin at low rate and advance as tolerated with dietary recommendation - Further recommendations throughout the patient's admission Current Visit: Yes Status: Acute Code(s): K56.7 - ILEUS, UNSPECIFIED SNOMED Code(s): 750690070
--- NOTE | 2018-02-08 16:53 | P.PN ---
Subjective Patient is admitted for aspiration pneumonia patient is on Rocephin kanamycin and azithromycin and do not believe patient is otherwise is necessary. His voice and will discuss reviewed and the patient is also on systemic steroids this is being managed by automatic cigar wrapper tender. Not sure whether she needs a such a high dose of steroids. We'll cut down the dose of steroids. 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 Dr. Crespo her primary doctor who knows the patient will will further discuss regarding this with the family tomorrow 02/08/2018 Her respiratory status improved but patient is not able to tolerate PEG tube feedings because of which surgery was consulted. We will cut down the steroids to 40 mg through PEG tube. Objective - Vital Signs Vital signs: Vital Signs Temp 98 F 02/08/18 15:00 Pulse 70 02/08/18 16:19 Resp 16 02/08/18 15:00 BP 138/77 02/08/18 15:00 Pulse Ox 94 L 02/08/18 15:00 Intake & Output 02/07/18 02/08/18 02/08/18 18:59 06:59 18:59 Intake Total 855 Balance 855 Weight 57.1 kg 57.1 kg Intake: Intake, IV Titration 600 Amount Dextrose 5%-0.45% NaCl 1, 600 000 ml @ 75 mls/hr IV . [id number] [facility] Rx#:[id number] Tube Feeding 230 Other 25 Other: Voiding Method Bedside Commode Bedside Commode Bedside Commode # Voids 2 2 3 # Bowel Movements 1 1 - Exam PHYSICAL EXAMINATION: GENERAL: The patient is alert and oriented x3, not in any acute distress. Thin built mostly nonverbal HEENT: Pupils are round and equally reacting to light. EOMI. No scleral icterus. No conjunctival pallor. Normocephalic, atraumatic. No pharyngeal erythema. No thyromegaly. CARDIOVASCULAR: S1 and S2 present. No murmurs, rubs, or gallops. PULMONARY: Chest is clear to auscultation, no wheezing or crackles. ABDOMEN: Soft, nontender, nondistended, PEG tube in place sluggish bowel sounds MUSCULOSKELETAL: No joint swelling or deformity. EXTREMITIES: No cyanosis, clubbing, or pedal edema. NEUROLOGICAL: Weakness and muscle atrophy due to muscular dystrophy SKIN: No rashes. - Labs CBC & Chem 7: 02/07/18 07:56 02/07/18 07:56 Labs: Abnormal Lab Results - Last 24 Hours (Table) 02/07/18 02/07/18 02/08/18 Range/Units 16:56 23:54 06:11 POC Glucose (mg/dL) 119 H 115 H 113 H (75-99) mg/dL 02/08/18 Range/Units 11:49 POC Glucose (mg/dL) 126 H (75-99) mg/dL Microbiology - Last 24 Hours (Table) 02/03/18 13:53 Anaerobic Culture - Final Thoracentesis Fluid 02/03/18 13:53 Gram Stain - Final Pleural Fluid Body Fluid Culture - Final Assessment and Plan Plan: Assessment and Plan Assessment: 1. Pneumonia possibly aspiration Patient is on clindamycin which will be continued, systemic steroids frequency and dose will be decreased 2. Bilateral pleural effusion, 3. PEG tube in place: Unable to tolerate PEG tube feedings 4. Tracheobronchitis; patient remains on IV antibiotics and nebulizer treatments , Patient to does not have asthma exacerbation of COPD exacerbation may not benefit from steroids will cut down the doses of steroids 5. Muscular dystrophy/dysphagia 6. Hypertension; controlled on losartan 12.5 mg daily
[2018-02-08 17:48] LABS: Glucose,Whole Blood 135 mg/dL (75-99)
[2018-02-08] MEDS: MONTELUKAST 10 MG TAB PO SCH (21:14)
[2018-02-08] MEDS ORDERED: TEMAZEPAM 30 MG CAP ONE (23:36)
[2018-02-08] MEDS ORDERED: HYDROcodone/APAP 10-325MG 1 EACH TAB ONE (23:36)
[2018-02-09] MEDS ORDERED: HYDROcodone/APAP 10-325MG 1 EACH TAB ONE (04:20)
[2018-02-09] MEDS: INSULIN ASPART 100 UNIT/ML 1 ML 10 ML VIAL SQ SCH ×3 (05:29→11:40)
[2018-02-09] MEDS: TEMAZEPAM 30 MG CAP PO SCH (05:29)
[2018-02-09] MEDS: DEXTROSE 5%-0.45% NACL 1,000 ML IV SCH ×2 (05:29→11:07)
[2018-02-09] MEDS: CLINDAMYCIN 600 MG in DEXTROSE 5% IN WATER 50 ML IVPB SCH ×6 (05:29→12:20)
[2018-02-09 06:26] LABS: Glucose,Whole Blood 94 mg/dL (75-99)
[2018-02-09] MEDS: BUDESONIDE 0.5 MG/2 ML NEBU INHALATION SCH (07:30)
[2018-02-09] MEDS: IPRATROPIUM-ALBUTEROL 3 ML NEB INHALATION SCH (07:30)
[2018-02-09] MEDS: POLYETHYLENE GLYCOL 3350 17 GM POWD.PACK PO SCH (08:12)
[2018-02-09] MEDS: HYDROcodone/APAP 10-325MG 1 EACH TAB PO PRN ×2 (08:19→12:25)
[2018-02-09] MEDS: GLYCOPYRROLATE 1 MG TAB PO SCH (08:20)
[2018-02-09] MEDS: ASPIRIN 81 MG PO SCH (08:20)
[2018-02-09] MEDS: CARVEDILOL 12.5 MG TAB PO SCH (08:21)
[2018-02-09] MEDS: SPIRONOLACTONE 25 MG TAB PO SCH (08:21)
[2018-02-09] MEDS: guaiFENesin 600 MG TABLET.ER PO SCH (08:21)
[2018-02-09] MEDS: PANTOPRAZOLE 40 MG TABLET PO SCH (08:21)
[2018-02-09] MEDS ORDERED: predniSONE 20 MG TAB PO SCH (09:00)
--- NOTE | 2018-02-09 09:22 | P.PN ---
Subjective Progress Note Date: 02/09/18 Patient seen and examined at bedside. No acute events overnight. Last bowel movement was this morning. She is tolerating her tube feeding at 30 mL an hour Objective - Vital Signs Vital signs: Vital Signs Temp 97.3 F L 02/08/18 21:00 Pulse 72 02/08/18 21:00 Resp 16 02/08/18 21:00 BP 146/80 02/08/18 21:00 Pulse Ox 96 02/09/18 07:31 Intake & Output 02/08/18 02/09/18 02/09/18 18:59 06:59 18:59 Intake Total 860 Balance 860 Weight 57.1 kg 57.1 kg Intake: Intake, IV Titration 600 Amount Dextrose 5%-0.45% NaCl 1, 600 000 ml @ 75 mls/hr IV . [id number] [facility] Rx#:[id number] Tube Feeding 260 Other: Voiding Method Bedside Commode # Voids 3 3 - Constitutional General appearance: Present: cooperative, no acute distress - Respiratory Details: No difficulty with respiration - Gastrointestinal Gastrointestinal Comment(s): Soft, nontender, nondistended, no rebound, no guarding, PEG tube in place - Psychiatric Psychiatric: Present: A&O x's 3 - Labs CBC & Chem 7: 02/07/18 07:56 02/07/18 07:56 Labs: Abnormal Lab Results - Last 24 Hours (Table) 02/08/18 02/08/18 Range/Units 11:49 17:47 POC Glucose (mg/dL) 126 H 135 H (75-99) mg/dL Assessment and Plan (1) Ileus Narrative/Plan: 57-year-old female with ileus likely secondary to infectious process, pneumonia - Ileus appears to be resolving - Continue tube feeding per dietary recommendations on rate - No plan for any acute surgical intervention at this time Current Visit: Yes Status: Acute Code(s): K56.7 - ILEUS, UNSPECIFIED SNOMED Code(s): 313344047
[2018-02-09 09:33] VITALS: BP 141/69; PULSE 75; TEMP 98.4
--- NOTE | 2018-02-09 09:46 | P.PN ---
Subjective Progress Note Date: 02/08/18 (Late entry note) Principal diagnosis: Aspiration pneumonia, bilateral pleural effusion, acute hypoxic respiratory failure, muscular dystrophy, hypertension hypertensive cardiovascular disease, status post thoracentesis is only 1 30 mL of fluid was removed, Gram stain and cultures are negative, ileus 02/08/18, patient seen and evaluated examined GI services/surgery is following this patient for her poor tolerance about the PEG tube feeding from [facility] standpoint however it is been doing fairly well will taper and DC the steroids continue other supportive care continue antibiotics clinically and radiographically patient continued to improve, general surgery has started to feed at a lower rate 02/07/2018, patient seen eval reexamined during the rounds clinically doing slightly better in terms of breathing patient is now off of oxygen on room air breathing comfortably no obvious distress present saturation have been stable patient has been found to have ileus-like Petrin with some bowel loops and distention general surgery has evaluated the patient and recommended continue bolus feed and observe, her white cell count continued decline the and now 12, 900 down from 15,000 yesterday yesterday, hemoglobin have been stable, potassium is 4.3 This is a 57-year-old female patient being seen examined and evaluated today came into the hospital with lethargy and fevers at home. 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 The patient does have a swallowing deficit and has had a PEG tube. Most of her nutrition is through her feeding tube however she does occasionally take sips of water and sometimes will have an occasional 2 or 3 cheese puffs at night before bed. She also has had a trach in the past as well she was in a [facility] and . She was also diagnosed by her neurologist with muscular dystrophy, she follows with Dr. Lobato and [place] [facility] of neurology. Production Artist also notices that her weakness has increased in severity over the last few weeks. During her ER evaluation the patient was noted to have a pneumonia with left lower lung obesity and pleural effusion. Her white count was initially 14.8, her BUN was 31 creatinine is 0.5 and her lactic acid was 2.4 she was slightly hypotensive in the emergency room with blood pressures running systolically 80s over 50s. Patient was admitted to the hospital for further evaluation and workup. Patient did undergo a repeat chest x-ray which did show worsening of her pneumonia and increase in the pleural effusions. Upon examination she is very weak, does have shortness of breath with exertion and activity she is on 5 L of supplemental oxygen she does not wear oxygen at home. She has a congested cough however it is weak and she is unable to bring any secretions. She was noted to have an elevated d-dimer of 2.63. Objective - Vital Signs Vital signs: Vital Signs Temp 98.4 F 02/09/18 08:15 Pulse 75 02/09/18 08:15 Resp 16 02/09/18 08:15 BP 141/69 02/09/18 08:15 Pulse Ox 95 02/09/18 08:15 Intake & Output 02/08/18 02/09/18 02/09/18 18:59 06:59 18:59 Intake Total 860 Balance 860 Weight 57.1 kg 57.1 kg Intake: Intake, IV Titration 600 Amount Dextrose 5%-0.45% NaCl 1, 600 000 ml @ 75 mls/hr IV . [id number] [facility] Rx#:[id number] Tube Feeding 260 Other: Voiding Method Bedside Commode # Voids 3 3 - Exam GENERAL: The patient is awake and alert cannot be assessed for full orientation , not in any acute distress. Thin built mostly nonverbal HEENT: Pupils are round and equally reacting to light. EOMI. No scleral icterus. No conjunctival pallor. Normocephalic, atraumatic. No pharyngeal erythema. No thyromegaly. CARDIOVASCULAR: S1 and S2 present. No murmurs, rubs, or gallops. PULMONARY: Chest is clear to auscultation, no wheezing or crackles. ABDOMEN: Soft, nontender, nondistended, normoactive bowel sounds. No palpable organomegaly. MUSCULOSKELETAL: No joint swelling or deformity. EXTREMITIES: No cyanosis, clubbing, or pedal edema. NEUROLOGICAL: Weakness and muscle atrophy due to muscular dystrophy, more awake and alert compared to yesterday exam SKIN: No rashes. - Labs CBC & Chem 7: 02/07/18 07:56 02/07/18 07:56 Labs: Abnormal Lab Results - Last 24 Hours (Table) 02/08/18 02/08/18 Range/Units 11:49 17:47 POC Glucose (mg/dL) 126 H 135 H (75-99) mg/dL Assessment and Plan Assessment: Aspiration pneumonia Bilateral pleural effusion Acute hypoxic respiratory failure Ileus Generalized weakness and medical debility Bibasilar atelectasis Advanced muscular dystrophy Plan: Continue deep breathing exercise incentive spirometry Titrated oxygen down as tolerated Continue bronchodilators Continue broad-spectrum antibiotics Aspiration precautions DVT and peptic ulcer disease prophylaxis Overall prognosis is guarded Increase to feed as tolerated Time with Patient: Greater than 30
--- NOTE | 2018-02-09 09:48 | P.PN ---
Subjective Progress Note Date: 02/09/18 Principal diagnosis: Aspiration pneumonia, bilateral pleural effusion, acute hypoxic respiratory failure, muscular dystrophy, hypertension hypertensive cardiovascular disease, status post thoracentesis is only 1 30 mL of fluid was removed, Gram stain and cultures are negative, ileus 02/09/2018, patient seen eval examined on fifth floor, patient has been tolerating tube feed fairly well had a bowel movement currently she is on 30 mL an hour she also off of oxygen breathing comfortably cuff congestion is improved 02/08/18, patient seen and evaluated examined GI services/surgery is following this patient for her poor tolerance about the PEG tube feeding from [facility] standpoint however it is been doing fairly well will taper and DC the steroids continue other supportive care continue antibiotics clinically and radiographically patient continued to improve, general surgery has started to feed at a lower rate 02/07/2018, patient seen eval reexamined during the rounds clinically doing slightly better in terms of breathing patient is now off of oxygen on room air breathing comfortably no obvious distress present saturation have been stable patient has been found to have ileus-like Petrin with some bowel loops and distention general surgery has evaluated the patient and recommended continue bolus feed and observe, her white cell count continued decline the and now 12, 900 down from 15,000 yesterday yesterday, hemoglobin have been stable, potassium is 4.3 This is a 57-year-old female patient being seen examined and evaluated today came into the hospital with lethargy and fevers at home. 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 The patient does have a swallowing deficit and has had a PEG tube. Most of her nutrition is through her feeding tube however she does occasionally take sips of water and sometimes will have an occasional 2 or 3 cheese puffs at night before bed. She also has had a trach in the past as well she was in a [facility] and 98. She was also diagnosed by her neurologist with muscular dystrophy, she follows with Dr. Lobato and [place] [facility] of neurology. 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 During her ER evaluation the patient was noted to have a pneumonia with left lower lung obesity and pleural effusion. Her white count was initially 14.8, her BUN was 31 creatinine is 0.5 and her lactic acid was 2.4 she was slightly hypotensive in the emergency room with blood pressures running systolically 80s over 50s. Patient was admitted to the hospital for further evaluation and workup. Patient did undergo a repeat chest x-ray which did show worsening of her pneumonia and increase in the pleural effusions. Upon examination she is very weak, does have shortness of breath with exertion and activity she is on 5 L of supplemental oxygen she does not wear oxygen at home. She has a congested cough however it is weak and she is unable to bring any secretions. She was noted to have an elevated d-dimer of 2.63. Objective - Vital Signs Vital signs: Vital Signs Temp 98.4 F 02/09/18 08:15 Pulse 75 02/09/18 08:15 Resp 16 02/09/18 08:15 BP 141/69 02/09/18 08:15 Pulse Ox 95 02/09/18 08:15 Intake & Output 02/08/18 02/09/18 02/09/18 18:59 06:59 18:59 Intake Total 860 Balance 860 Weight 57.1 kg 57.1 kg Intake: Intake, IV Titration 600 Amount Dextrose 5%-0.45% NaCl 1, 600 000 ml @ 75 mls/hr IV . [id number] [facility] Rx#:[id number] Tube Feeding 260 Other: Voiding Method Bedside Commode # Voids 3 3 - Exam GENERAL: The patient is awake and alert cannot be assessed for full orientation , not in any acute distress. Thin built mostly nonverbal HEENT: Pupils are round and equally reacting to light. EOMI. No scleral icterus. No conjunctival pallor. Normocephalic, atraumatic. No pharyngeal erythema. No thyromegaly. CARDIOVASCULAR: S1 and S2 present. No murmurs, rubs, or gallops. PULMONARY: Chest is clear to auscultation, no wheezing or crackles. ABDOMEN: Soft, nontender, nondistended, normoactive bowel sounds. No palpable organomegaly. MUSCULOSKELETAL: No joint swelling or deformity. EXTREMITIES: No cyanosis, clubbing, or pedal edema. NEUROLOGICAL: Weakness and muscle atrophy due to muscular dystrophy, more awake and alert compared to yesterday exam SKIN: No rashes. - Labs CBC & Chem 7: 02/07/18 07:56 02/07/18 07:56 Labs: Abnormal Lab Results - Last 24 Hours (Table) 02/08/18 02/08/18 Range/Units 11:49 17:47 POC Glucose (mg/dL) 126 H 135 H (75-99) mg/dL Assessment and Plan Assessment: Aspiration pneumonia Bilateral pleural effusion Acute hypoxic respiratory failure Ileus Generalized weakness and medical debility Bibasilar atelectasis Advanced muscular dystrophy Plan: Continue deep breathing exercise incentive spirometry Titrated oxygen down as tolerated Continue bronchodilators Continue broad-spectrum antibiotics Aspiration precautions DVT and peptic ulcer disease prophylaxis Overall prognosis is guarded Increase to feed as tolerated Taper and DC the steroids 24-48 hours Time with Patient: Greater than 30
--- NOTE | 2018-02-09 10:37 | XR ---
EXAMINATION TYPE: XR chest 1V DATE OF EXAM: 02/09/2018 COMPARISON: 02/03/2018 HISTORY: Post left thoracentesis TECHNIQUE: Single frontal view of the chest is obtained. FINDINGS: There is interval reduction in amount pleural fluid on the left with some residual small e ffusion. Bilateral consolidation and small right effusion also noted. Biapical pleural thickening. No interstitial edema or pneumothorax. IMPRESSION: Improvement in the amount of pleural fluid on the left postthoracentesis with no sizable pneumothorax
[2018-02-09 11:37] LABS: Glucose,Whole Blood 127 mg/dL (75-99)
--- NOTE | 2018-02-09 12:40 | P.DS ---
Providers Date of admission: 02/01/18 04:50 Attending physician: Leodan Crespo Consults: 02/03/18 08:15 Consult Physician Urgent Consulting Provider: Russel Echevarria Consult Reason/Comments: decrease O2 sat, PNA Do you want consulting provider notified?: Yes 02/06/18 19:00 Consult Physician Routine Consulting Provider: Robert Brooks Consult Reason/Comments: ileus vs obstruction Do you want consulting provider notified?: Already Contacted Primary care physician: Leodan Crespo Hospital Course: Patient is admitted for aspiration pneumonia patient is on Rocephin kanamycin and azithromycin and do not believe patient is otherwise is necessary. 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 Not sure whether she needs a such a high dose of steroids. We'll cut down the dose of steroids. 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 Dr. Crespo her primary doctor who knows the patient will will further discuss regarding this with the family tomorrow 02/08/2018 Her respiratory status improved but patient is not able to tolerate PEG tube feedings because of which surgery was consulted. We will cut down the steroids to 40 mg through PEG tube. 02/10/2080 Patient had a bowel movement able to tolerate the tube feedings. Patient will most probably will be discharged today. Will do a pretty quick sharp taper of steroids. PHYSICAL EXAMINATION: GENERAL: The patient is alert and oriented x3, not in any acute distress. Thin built cachectic due to advanced myotonic dystrophy HEENT: Pupils are round and equally reacting to light. EOMI. No scleral icterus. No conjunctival pallor. Normocephalic, atraumatic. No pharyngeal erythema. No thyromegaly. CARDIOVASCULAR: S1 and S2 present. No murmurs, rubs, or gallops. PULMONARY: Chest is clear to auscultation, no wheezing or crackles. ABDOMEN: Soft, nontender, nondistended, PEG tube in place sluggish bowel sounds MUSCULOSKELETAL: No joint swelling or deformity. EXTREMITIES: No cyanosis, clubbing, or pedal edema. NEUROLOGICAL: Weakness and muscle atrophy due to muscular dystrophy SKIN: No rashes. Assessment and Plan Assessment: 1. Pneumonia possibly aspiration 2. Bilateral pleural effusion, 3. PEG tube in place: Unable to tolerate PEG tube feedings 4. Tracheobronchitis; I do not believe patient has either COPD or asthma exacerbation. 5. Muscular dystrophy/dysphagia 6. Hypertension; controlled on losartan 12.5 mg daily Plan - Discharge Summary Discharge Rx Participant: No New Discharge Prescriptions: New Clindamycin [Cleocin] 300 mg PO Q6H #20 capsule Metoclopramide HCl [Reglan] 5 mg PO AC-TID PRN #20 tablet PRN Reason: Nausea And Vomiting predniSONE 10 mg PO DAILY #10 tab Continue Melatonin 3 mg PO HS PRN PRN Reason: insomnia Glycopyrrolate [Robinul] 1 mg PO TID Carvedilol [Coreg] 12.5 mg PO BID Temazepam 30 mg PO HS Omeprazole [PriLOSEC] 40 mg PO DAILY HYDROcodone/APAP 10-325MG [Brunswick 10-325] 1 tab PO Q6H PRN PRN Reason: pain Losartan [Cozaar] 12.5 mg PO DAILY diphenhydrAMINE [Benadryl] 25 mg PO Q6H PRN PRN Reason: pruritis Polyethylene Glycol 3350 [Miralax] 17 gm PO Q3D Aspirin 81 mg PO DAILY chew Spironolactone [Aldactone] 12.5 mg PO DAILY #30 tab guaiFENesin-DM 100-10MG/5ML [Robitussin DM] 10 ml PO Q6H PRN PRN Reason: Cough Discharge Medication List Glycopyrrolate [Robinul] 1 mg PO TID 11/20/15 [History] Melatonin 3 mg PO HS PRN 11/20/15 [History] Carvedilol [Coreg] 12.5 mg PO BID 05/14/17 [History] HYDROcodone/APAP 10-325MG [Brunswick 10-325] 1 tab PO Q6H PRN 11/13/17 [History] Losartan [Cozaar] 12.5 mg PO DAILY 11/13/17 [History] Omeprazole [PriLOSEC] 40 mg PO DAILY 11/13/17 [History] Polyethylene Glycol 3350 [Miralax] 17 gm PO Q3D 11/13/17 [History] Temazepam 30 mg PO HS 11/13/17 [History] diphenhydrAMINE [Benadryl] 25 mg PO Q6H PRN 11/13/17 [History] Aspirin 81 mg PO DAILY chew 11/15/17 [Rx] Spironolactone [Aldactone] 12.5 mg PO DAILY #30 tab 11/15/17 [Rx] guaiFENesin-DM 100-10MG/5ML [Robitussin DM] 10 ml PO Q6H PRN 02/01/18 [History] Clindamycin [Cleocin] 300 mg PO Q6H #20 capsule 02/09/18 [Rx] Metoclopramide HCl [Reglan] 5 mg PO AC-TID PRN #20 tablet 02/09/18 [Rx] predniSONE 10 mg PO DAILY #10 tab 02/09/18 [Rx] Follow up Appointment(s)/Referral(s): [facility], [NON-STAFF] - 1 Week Leodan Crespo MD [Primary Care Provider] - 1 Week Russel Echevarria MD [STAFF PHYSICIAN] - 1 Week
[2018-02-09 14:27] LABS: Glucose,Whole Blood 96 mg/dL (75-99)
--- NOTE | 2018-02-13 17:48 | CDI ---
Last Revision, June 2017 Documentation Clarification Form Date: 02/13/18 From: Laurence Quinn Phone: If you have a question regarding this query, please contact Jailyn Gilbert at [phone] between 8am and 5pm. Admit Date: 02/01/2018 4:50:00 AM Patient Name: Natasha Irby Visit Number: [id number] Discharge Date: 02/09/18 ATTENTION: The Clinical Documentation Specialists (CDI) and [facility] Coding Staff appreciate your assistance in clarifying documentation. Please respond to the clarification below the line at the bottom and electronically sign. The CDI & [facility] Coding staff will review the response and follow-up if needed. Please note: Queries are made part of the Legal Health Record. If you have any questions, please contact the author of this message via ITS. Dr. Elijah Pino Sepsis is documented in the H&P and in Kathy Bennett consult note. History/Risk Factors: Patient was admitted for aspiration vs. bacterial pneumonia. Patient has a history of dysphagia and a PEG tube Clinical Indicators: Patient presented with elevated lactic acid, leukocytosis and hypotension. WBC/Left Shift: 12.7/11.2 Lactic acid: 2.4 Blood cultures: No growth after 144 hours. Vitals signs on admission: T. 98.6, P. 69, R. 20, BP 89/51 Treatment: Antibiotics: IV and PO Zithromax, IV Rocephin, IV Clindamycin In your professional opinion, please clarify if these findings signify one of the following conditions, whether: Sepsis ruled out SIRS, without underlying infectious process Sepsis Severe Sepsis Septic Shock Other, please specify Unable to determine Link or clarify if there is associated (due to/with): Organ failure Shock Sepsis MTDD
--- NOTE | 2018-02-13 17:53 | CDI ---
Last Revision, June 2017 Documentation Clarification Form Date: 02/13/18 From: Laurence Quinn Phone: If you have a question regarding this query, please contact Jailyn Gilbert at [phone] between 8am and 5pm. Admit Date: 02/01/2018 4:50:00 AM Patient Name: Natasha Irby Visit Number: [id number] Discharge Date: 02/09/18 ATTENTION: The Clinical Documentation Specialists (CDI) and [facility] Coding Staff appreciate your assistance in clarifying documentation. Please respond to the clarification below the line at the bottom and electronically sign. The CDI & [facility] Coding staff will review the response and follow-up if needed. Please note: Queries are made part of the Legal Health Record. If you have any questions, please contact the author of this message via ITS. Dr. Elijah Pino Per the past medical history in both consult notes and H&P, the patient has a history of heart failure. History/Risk Factors: Patient has a history of hypertensive cardiovascular disease and non ischemic Treatment: Patient is on Coreg 12.5 mg PO at home. In your professional opinion, can you please clarify the acuity and type of CHF if known? Systolic Heart Failure: Diastolic Heart Failure: Systolic & Diastolic Heart Failure: Unable to Determine Other, please specify No CHF No need for [facility]
--- NOTE | 2018-02-15 20:08 | P.PN ---
Subjective Progress Note Date: 02/02/18 Principal diagnosis: Pneumonia with hypoxia. The patient is here essentially because of pneumonia. No new complaints except for cough which is improving. Some dietary issues. Objective - Vital Signs Vital signs: Vital Signs Temp 98.4 F 02/09/18 08:15 Pulse 75 02/09/18 08:15 Resp 16 02/09/18 08:15 BP 141/69 02/09/18 08:15 Pulse Ox 95 02/09/18 08:15 - Constitutional General appearance: Present: thin - EENT Eyes: Absent: abnormal pupil - Respiratory Respiratory: bilateral: diminished - Cardiovascular Rhythm: regular Heart sounds: normal: S1, S2 Abnormal Heart Sounds: Absent: S3 Gallop - Gastrointestinal General gastrointestinal: Present: soft. Absent: tenderness - Psychiatric Psychiatric: Present: A&O x's 3, appropriate affect - Labs CBC & Chem 7: 02/07/18 07:56 02/07/18 07:56 Assessment and Plan (1) Community acquired pneumonia Status: Acute Code(s): J18.9 - PNEUMONIA, UNSPECIFIED ORGANISM SNOMED Code(s ): 430193154 (2) Muscular dystrophy Status: Acute Code(s): G71.0 - MUSCULAR DYSTROPHY SNOMED Code(s): 81132928 Plan: Continue current regimen of treatment. Check CBC and CMP in a.m. New. Her nutritional status will be addressed. See orders otherwise. Time with Patient: Less than 30
== END 2018-02-09 15:10 | disposition home health service (06) | DRG 871 ==
LOC: EC 02:10 → 4MS4W 04:50 → 5MS5E 06:37
PROVIDERS: ADMIT Family Medicine; ATTEND Family Medicine
PROC: 0W9B3ZZ Drainage of Left Pleural Cavity, Percutaneous Approach (ICD-10-PCS; principal; 2018-02-03)
DX: A41.9 Sepsis, unspecified organism (principal); J69.0 Pneumonitis due to inhalation of food and vomit; J96.01 Acute respiratory failure with hypoxia; I42.9 Cardiomyopathy, unspecified; J98.11 Atelectasis; K56.7 Ileus, unspecified; G71.11 Myotonic muscular dystrophy; G89.29 Other chronic pain; I11.0 Hypertensive heart disease with heart failure; J40 Bronchitis, not specified as acute or chronic; K21.9 Gastro-esophageal reflux disease without esophagitis; R13.10 Dysphagia, unspecified; R32 Unspecified urinary incontinence; R79.1 Abnormal coagulation profile; M54.2 Cervicalgia; Z93.1 Gastrostomy status; Z87.01 Personal history of pneumonia (recurrent); Z79.82 Long term (current) use of aspirin; Z79.899 Other long term (current) drug therapy; Z98.42 Cataract extraction status, left eye; Z98.41 Cataract extraction status, right eye; Z96.1 Presence of intraocular lens; Z82.49 Family history of ischemic heart disease and other diseases of the circulatory system
CPT/HCPCS: 32555; 36415; 71045; 71046; 71275; 74019; 76604; 80053; 82150; 82945; 83036; 83605; 83615; 84132; 84157; 85025; 85379; 85610; 87040; 87070; 87075; 87205; 89050; 93005; 93970; 94640; 94760; 99285

== ENCOUNTER → 2018-03-02 | Outpatient (CLI) | payer OTHER ==
--- NOTE | 2018-03-02 14:53 | XR ---
EXAMINATION TYPE: XR chest 2V DATE OF EXAM: 03/02/2018 COMPARISON: 02/09/2018 TECHNIQUE: PA and lateral views submitted. HISTORY: Pneumonia FINDINGS: There is a near complete resolution of bilateral pleural effusions and right-sided consolidation. The re is residual linear subsegmental consolidation at the left lung base which is markedly improved. No interstitial edema or pneumothorax. Biapical pleural thickening. Gastrostomy tube incidentally noted . IMPRESSION: 1. Marked improvement with reduction in amount of pleural effusion and consolidation bilaterally. No overt failure.
== END | disposition home or self-care (01) ==
LOC: RADXRMAIN 14:26
PROVIDERS: ATTEND Family Medicine
DX: J90 Pleural effusion, not elsewhere classified (principal)
CPT/HCPCS: 71046

== ENCOUNTER → 2018-06-01 | Outpatient (CLI) | payer OTHER ==
[2018-06-02 12:40] VITALS: BMI 16.9
== END ==
LOC: MNTWWP 15:13
PROVIDERS: ATTEND Family Medicine
DX: R13.10 Dysphagia, unspecified (principal); G71.00 Muscular dystrophy, unspecified
CPT/HCPCS: 97802

== ENCOUNTER 2018-06-29 12:35 | Day surgery (SDC) | payer OTHER ==
[2018-06-27 11:23] VITALS: BMI 16.5
[2018-06-29 13:51] VITALS: RESP 16; TEMP 97.9
[2018-06-29] MEDS ORDERED: LIDOCAINE 1% INJ 10MG/ML (20 ML MDV) ONE (14:26)
[2018-06-29] MEDS ORDERED: PROPOFOL 10 MG/ML 20 ML VIAL IV ONE (14:26)
--- NOTE | 2018-06-29 14:34 | P.HPADDEND ---
H&P Addendum H&P Addendum Date: 06/29/18 Patient is here today for PEG tube replacement. I spoke with the patient and her by phone after they saw neurology. No immediate plans for J-tube placement. Upper endoscopy with G-tube replacement at this time.
--- NOTE | 2018-06-29 14:56 | P.PCN ---
Date of Procedure: 06/29/18 Procedure(s) Performed: Preoperative Dx: Malnutrition Postoperative Dx: Esophageal stricture Procedure: EGD with Bx Anesthesia: Sedation Endoscopist: Dr. Stratton Specimens: None Endoscopic Procedure: The patient was on the endoscopy table in the supine position. The Olympus gastroscope was inserted into the oropharynx and passed under direct visualization to the region of the retropharynx. The pharyngeal esophageal junction was seen. There was a stricture there. I could not advance the scope through the strictured area. No further endoscopy took place. The gastrostomy that was indwelling was removed with traction. The end of the tubing didn't break when we were removing the tubing. I was able to visualize the remainder of the tube however. This was grasped with a hemostat and able to removed at that point. There was no non-balloon gastrostomy replacement tube in stock. The 20-Cameroonian 20 mL tri-funnel replacement tube was advanced without difficulty. The balloon was inflated. I will obtain a postprocedure gastric film with a portable x-ray. Assuming that study is okay the patient will be discharged home. The patient was then taken to the recovery room in stable condition per anesthesia guidelines. Recommendations: Check post procedure cathogram.
[2018-06-29] MEDS ORDERED: MORPHINE SULFATE 4 MG/ML SYRINGE IV ONE (15:14)
[2018-06-29 16:08] VITALS: BP 122/81; PULSE 74
--- NOTE | 2018-06-29 16:23 | XR ---
Abdomen HISTORY: PEG tube placement Frontal view the abdomen submitted. There is a PEG tube which shows the placement within the stomach. Contrast material is present within the tube and within the stomach and proximal small bowel. No evident pneumoperitoneum. Patient received 100 cc of Isovue-[id number] into the tube prior to obtaining x-ray. IMPRESSION: PEG tube is in appropriate position.
== END 2018-06-29 16:50 | disposition home or self-care (01) ==
LOC: ORWHC2ENDO 12:35
PROVIDERS: ATTEND Surgery
DX: E46 Unspecified protein-calorie malnutrition (principal); K22.2 Esophageal obstruction; G71.11 Myotonic muscular dystrophy; I50.9 Heart failure, unspecified; K21.9 Gastro-esophageal reflux disease without esophagitis; G35 Multiple sclerosis; Z79.891 Long term (current) use of opiate analgesic; Z79.82 Long term (current) use of aspirin; Z79.899 Other long term (current) drug therapy
CPT/HCPCS: 74018; 43200; 43760; J2270; J2001; J2704; Q9967